=== PATIENT | male | born 1965 | race Caucasian/White ===

== ENCOUNTER 2021-10-29 01:29 | Day surgery (SDC) | payer OTHER, SELFPAY ==
[2021-10-15 12:14] VITALS: BMI 24.9
--- NOTE | 2021-10-28 14:29 | WPDANESEPPF ---
Anes - Initial Pre Proc Eval Procedure: Operation Date: 10/29/21 08:30 Proposed Procedures p Screening Colonoscopy - Jl Veras MD <Billy Celis, DO - Last Filed: 10/28/21 14:30> Date/Time: 10/28/21 14:29 <Billy Celis DO - Last Filed: 10/28/21 14:30> Surgeon: Jl Veras MD <Billy Celis DO - Last Filed: 10/28/21 14:30> Pre Op Diagnosis: neoplasm screening, hx of colon polyps <Billy Celis DO - Last Filed: 10/28/21 14:30> Patient Data Age: 56 Gender: M Height: 1.68 m Weight: 70 kg <Billy Celis DO - Last Filed: 10/28/21 14:30> Allergies Allergy/AdvReac Type Severity Reaction Status Date / Time grass pollen Allergy Swelling Verified 10/29/21 07:35 in throat ibuprofen Allergy swelling Verified 10/29/21 07:35 in throat wheat Allergy swelling Verified 10/29/21 07:35 in throat <Billy Celis DO - Last Filed: 10/28/21 14:30> Home Medications Medication Instructions Recorded Confirmed Type albuterol sulfate 90 mcg/actuation 2 inh inhalation Q4-6H PRN 08/16/21 10/29/21 History breath activated powder inhaler Shortness Of Breath Or Wheezing zdimvuwuds-ylalpcwbcvgkd-yyotzewj 1 cap PO Q8H PRN Headache 08/16/21 10/29/21 History 50 mg-300 mg-40 mg capsule (Fioricet) dronabinol 10 mg capsule 10 mg PO BID PRN nausea and 08/16/21 10/29/21 Rx vomiting #20 caps dupilumab 300 mg/2 mL subcutaneous 300 mg subcut .Biweekly 08/16/21 10/29/21 History pen injector (Dupixent) fluticasone fur. 100 mcg-umeclid 1 inh inhalation DAILY 08/16/21 10/29/21 History 62.5 mcg-vilant 25 mcg inhalat.powder (Trelegy Ellipta) montelukast 10 mg tablet 10 mg PO DAILY 08/16/21 10/29/21 History (Singulair) testosterone cypionate 200 mg/mL 120 mg IM WEEKLY 08/16/21 10/29/21 History intramuscular oil zolmitriptan 5 mg tablet See Rx Instructions PO .COMPLEX 08/16/21 10/15/21 Rx #14 tabs <Billy Celis, DO - Last Filed: 10/28/21 14:30> Patient hx anesthesia problems: none <Idania Posey CRNA - Last Filed: 10/29/21 07:56> Family hx anesthesia problems: none <Idania Posey CRNA - Last Filed: 10/29/21 07:56> Results Review: All pre-operative results and documents have been reviewed as part of the pre-operative evaluation. <Billy Celis, DO - Last Filed: 10/28/21 14:30> [facility] Past Medical History Medical History: Medical History Allergies Arthritis Asthma Broken finger Cholecystectomy planned 2018 Gynecomastia Headache Umbilical hernia 2016 surgery <Billy Celis, DO - Last Filed: 10/28/21 14:30> Surgical History Surgical History: Surgical History H/O sinus surgery X3 History of cholecystectomy S/P tendon repair 01/2020 Right arm PIN AND CABLE ATTACHMENT ON TENDON <Billy Celis DO - Last Filed: 10/28/21 14:30> Family History Family History: Family History Father Alcoholism Mother Cerebrovascular accident Carcinoma of colon Uterine cancer Lymph node cancer <Billy Celis DO - Last Filed: 10/28/21 14:30> Social History Social History: Social History Smoking status: Never smoker Tobacco type: cigarettes Smoking end date: 01/12/98 Alcohol intake: current Alcohol use details: occasionally Substance use: former Substance use type: does not use Other substance usage details: MMJ Living arrangements: alone Spiritual care concerns: No <Billy Celis DO - Last Filed: 10/28/21 14:30> Anes - Eval Final PreProcedure Day of Procedure 10/28/21 14:29 <Billy Celis DO - Last Filed: 10/28/21 14:30> Patient weight:
--- NOTE | 2021-10-28 15:11 | PM.HPGS ---
History of Present Illness History of Present Illness Consent: Risks, benefits, and alternatives have been discussed and questions answered. Patient agrees to proceed with procedure. Chief complaint: neoplasm screening, hx of colon polyps Narrative: Devyn Sharif is a 56 year old male Referred for colon cancer screening. He has a history of polyps. Review of Systems Review of Systems: All systems reviewed & are unremarkable except as noted in HPI and below PMFSH Past Medical History Medical History Allergies Arthritis Asthma Broken finger Cholecystectomy planned 2017 Gynecomastia Headache Umbilical hernia 2016 surgery Surgical History Surgical History H/O sinus surgery X3 History of cholecystectomy S/P tendon repair 01/2020 Right arm PIN AND CABLE ATTACHMENT ON TENDON Family History Family History Father Alcoholism Mother Cerebrovascular accident Carcinoma of colon Uterine cancer Lymph node cancer Social History Social History Smoking status: Never smoker Tobacco type: cigarettes Smoking end date: 01/12/98 Alcohol intake: current Alcohol use details: occasionally Substance use: former Substance use type: does not use Other substance usage details: MMJ Living arrangements: alone Spiritual care concerns: No Meds Home Medications and Allergies Home Medications Medication Instructions Recorded Confirmed Type albuterol sulfate 90 mcg/actuation 2 inh inhalation Q4-6H PRN 08/16/21 10/29/21 History breath activated powder inhaler Shortness Of Breath Or Wheezing chqmwpgqyj-teutxyybwhqco-rwwjgxnv 1 cap PO Q8H PRN Headache 08/16/21 10/29/21 History 50 mg-300 mg-40 mg capsule (Fioricet) dronabinol 10 mg capsule 10 mg PO BID PRN nausea and 08/16/21 10/29/21 Rx vomiting #20 caps dupilumab 300 mg/2 mL subcutaneous 300 mg subcut .Biweekly 08/16/21 10/29/21 History pen injector (Dupixent) fluticasone fur. 100 mcg-umeclid 1 inh inhalation DAILY 08/16/21 10/29/21 History 62.5 mcg-vilant 25 mcg inhalat.powder (Trelegy Ellipta) montelukast 10 mg tablet 10 mg PO DAILY 08/16/21 10/29/21 History (Singulair) testosterone cypionate 200 mg/mL 120 mg IM WEEKLY 08/16/21 10/29/21 History intramuscular oil zolmitriptan 5 mg tablet See Rx Instructions PO .COMPLEX 08/16/21 10/15/21 Rx #14 tabs Allergies Allergy/AdvReac Type Severity Reaction Status Date / Time grass pollen Allergy Swelling Verified 10/29/21 07:35 in throat ibuprofen Allergy swelling Verified 10/29/21 07:35 in throat wheat Allergy swelling Verified 10/29/21 07:35 in throat Exam Resp: Auscultation: clear to auscultation bilaterally Cardio: Rate: regular rate Rhythm: regular rhythm GI: GI Palp: Yes Soft to palpation and No Tenderness to palpation present (GI) Assessment and Plan Assessment and plan (1) Colon cancer screening: Code(s): Z12.11 - Encounter for screening for malignant neoplasm of colon Status: Acute Assessment and Plan: Colonoscopy with possible biopsy or polypectomy or cautery or injection of substances.
[2021-10-29 07:36] VITALS: BP 117/74; PULSE 66; RESP 16; TEMP 36.6; O2SAT 100; BMI 24.5
[2021-10-29] MEDS: LACTATED RINGERS 1,000 ML 150 ML IV CONT (07:46)
[2021-10-29 08:41] VITALS: BP 94/57; PULSE 71; RESP 18; O2SAT 98
[2021-10-29 08:51] VITALS: BP 114/67; PULSE 69; RESP 23; O2SAT 99
[2021-10-29 09:01] VITALS: BP 99/69; PULSE 67; RESP 18; O2SAT 100
== END 2021-10-29 09:11 | disposition home or self-care (01) ==
PROVIDERS: PCP Internal Medicine; Visit Provider Internal Medicine Gastroenterology
PROC: 0DJD8ZZ Inspection of Lower Intestinal Tract, Via Natural or Artificial Opening Endoscopic (ICD-10-PCS; CPT 45378; principal; 2021-10-29 08:30)
DX: Z12.11 Encounter for screening for malignant neoplasm of colon (principal); R85.612 Low grade squamous intraepithelial lesion on cytologic smear of anus (LGSIL); K57.30 Diverticulosis of large intestine without perforation or abscess without bleeding; K64.8 Other hemorrhoids; Z86.010 Personal history of colon polyps; Z87.891 Personal history of nicotine dependence
CPT/HCPCS: 45380; 88305; 88342; J2704; J7120

== ENCOUNTER 2023-05-18 08:35 | Outpatient (CLI) | payer OTHER, SELFPAY ==
--- NOTE | ~2023-05-18 | XR_ITS ---
XR shoulder LT min 2V DATE: 05/18/2023 08:58 INDICATION: Left shoulder pain for 4 months. No injury. TECHNIQUE: 4 views COMPARISON: None FINDINGS: No fracture or dislocation, periosteal reaction or bone destruction or abnormal soft tissue calcification. IMPRESSION: No significant abnormality Reviewed, dictated and finalized at location L. PRESSURE OPERATOR IMPRESSION: No significant abnormality
== END 2023-05-18 08:36 ==
PROVIDERS: PCP Nurse Practitioner; Visit Provider Nurse Practitioner
DX: M25.512 Pain in left shoulder (principal)
CPT/HCPCS: 73030

== ENCOUNTER 2023-06-12 15:44 | Outpatient (CLI) | payer OTHER, SELFPAY ==
[2023-06-12 20:35] LABS: HIV 1/2 Ab P24 Ag Result Negative (Negative)
[2023-06-12 20:44] LABS: Folic Acid 12.2 ng/mL (2.76->20)
== END 2023-06-12 15:45 | disposition home or self-care (01) ==
PROVIDERS: PCP Nurse Practitioner; Visit Provider Nurse Practitioner
DX: K13.79 Other lesions of oral mucosa (principal); Z11.3 Encounter for screening for infections with a predominantly sexual mode of transmission
CPT/HCPCS: 36415; 82607; 82746; 86703; G0432

== ENCOUNTER 2023-06-24 08:10 | Outpatient (CLI) | payer OTHER, SELFPAY ==
--- NOTE | ~2023-06-24 | MR_ITS ---
EXAMINATION: MR shoulder LT wo con DATE: 06/24/2023 08:57 INDICATION: Posterior left shoulder pain. TECHNIQUE: Magnetic resonance imaging (MRI) of the left shoulder was performed without intravenous co ntrast. Sequences included axial PD-weighted FS FSE, coronal oblique PD-weighted FS FSE and T2-weight ed FS FSE, and sagittal oblique T2-weighted FS FSE and T1-weighted FSE. COMPARISON: Left shoulder radiographs 05/18/2023 FINDINGS: Coracoacromial arch: The acromion undersurface is curved in morphology (type II). There is mild acromioclavicular joint os teoarthritis. There is moderate subacromial/subdeltoid bursitis. Rotator cuff: There is severe supraspinatus tendinopathy. There is shallow bursal-sided fraying of supraspinatus te ndon. There is an interstitial tear of posterior supraspinatus tendon measuring 2 mm anterior to post erior by 20 mm proximal to distal by 20% tendon thickness. Teres minor tendon is normal. There is mil d subscapularis tendinopathy. There is no asymmetric fatty atrophy of the rotator cuff muscle bellies . Biceps tendon and glenoid labrum: Biceps tendon is in bicipital groove. There is mild intra-articular biceps tendinopathy. There is a t ear of posterior superior labrum from 11:00 to 12:00 (SLAP tear). Fluid: There is no glenohumeral joint effusion. Bones/cartilage: There is cartilage surface irregularity of glenoid and humeral head. IMPRESSION: 1. Severe rotator cuff tendinopathy with small partial tears. 2. Mild glenohumeral joint chondrosis. SLAP tear. 3. Mild acromioclavicular joint osteoarthritis. 4. Moderate subacromial/subdeltoid bursitis. 5. Mild intra-articular biceps tendinopathy. Reviewed, dictated and finalized at location E. 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
== END 2023-06-24 08:11 ==
LOC: MICIMG 08:10
PROVIDERS: PCP Nurse Practitioner Family; Visit Provider Nurse Practitioner Family
DX: M75.32 Calcific tendinitis of left shoulder (principal); M94.212 Chondromalacia, left shoulder; M19.012 Primary osteoarthritis, left shoulder; M75.52 Bursitis of left shoulder; M75.22 Bicipital tendinitis, left shoulder; S43.432A Superior glenoid labrum lesion of left shoulder, initial encounter; X58.XXXA Exposure to other specified factors, initial encounter
CPT/HCPCS: 73221

== ENCOUNTER 2023-12-13 09:54 | Emergency (ER) | payer OTHER, SELFPAY ==
[2023-12-13 10:05] VITALS: BP 142/82; PULSE 84; RESP 16; TEMP 37.2; O2SAT 98
--- NOTE | 2023-12-13 10:15 | ED.GENADULT ---
HPI - General Adult General Chief complaint: Headache Stated complaint: headache/nausea/diarrhea Time Seen by Provider: 12/13/23 10:15 Source: patient, RN notes reviewed and old records reviewed Mode of arrival: ambulatory Limitations: no limitations History of Present Illness HPI narrative: 58-year-old male to [facility] for complaints weight loss approximately 25 lb over the past 6 weeks without intention, decreased appetite, headache, nausea, mucous diarrhea for 1 week. Patient denies fever, vomiting, visual changes, ear pain, sore throat, difficulty swallowing, shortness of breath, chest pain. Patient reports history tobacco use; quit in 1997. Patient states that he recently moved his mother into an independent living facility and has had a lot of exposure to a variety of new people there over the past week. Patient concerned that he may have contracted a virus. patient able to tolerate fluids by mouth. Respirations even and nonlabored. Patient able to speak in complete sentences in exam room without difficulty. Patient in no acute distress. Related Data Home Medications Medication Instructions Recorded Confirmed montelukast 10 mg tablet 10 mg PO DAILY 08/16/21 12/13/23 (Singulair) dupilumab 300 mg/2 mL subcutaneous 300 mg subcut .[id number] 05/18/23 12/13/23 pen injector (Dupixent) testosterone cypionate 100 mg/mL 32 mg IM WEEKLY 05/18/23 12/13/23 intramuscular oil valacyclovir 1 gram tablet 2,000 mg PO Q12H PRN sores 07/18/23 12/13/23 (Valtrex) dronabinol 10 mg capsule mg 12/13/23 12/13/23 zolmitriptan 5 mg disintegrating 5 mg PO 12/13/23 tablet Allergies Allergy/AdvReac Type Severity Reaction Status Date / Time grass pollen Allergy Swelling Verified 12/13/23 10:00 in throat ibuprofen Allergy swelling Verified 12/13/23 10:00 in throat wheat Allergy swelling Verified 12/13/23 10:00 in throat Review of Systems Review of Systems: All systems reviewed & are unremarkable except as noted in HPI and below Constitutional: Constitutional: Reports as per HPI, Reports difficulty sleeping, Reports excessive sweating, Reports headache(s), Reports night sweats, Reports poor appetite and Reports weight loss Eyes: Eyes: Reports no additional eye complaints ENT: Reports system reviewed and no additional complaints, except as documented Cardiovascular: Cardiovascular: Reports no additional cardiovascular complaints, Denies chest pain and Denies dyspnea Respiratory: Respiratory: Reports no additional respiratory complaints, Denies cough and Denies dyspnea Gastrointestinal: Gastrointestinal: Reports as per HPI, Reports diarrhea and Reports nausea Musculoskeletal: Musculoskeletal: Reports no additional musculoskeletal complaints Neurologic: Reports system reviewed and no additional complaints, except as documented Psychiatric: Psychiatric: Reports no additional psychiatric complaints PMFSH Past Medical History Medical History Allergies Arthritis Asthma Broken finger Cholecystectomy planned 2018 Colon cancer screening Encounter for monitoring testosterone replacement therapy Gynecomastia Headache Hypertriglyceridemia Left shoulder pain Onychomycosis Rotator cuff tendonitis Sinusitis Umbilical hernia 2016 surgery Surgical History Surgical History H/O sinus surgery X3 History of cholecystectomy S/P tendon repair 01/2020 Right arm PIN AND CABLE ATTACHMENT ON TENDON Family History Family History Father Alcoholism Mother Cerebrovascular accident Carcinoma of colon Uterine cancer Lymph node cancer Social History Social History Social History: Caffeine-occasionally Smoking status: Former smoker Tobacco type: cigarettes
[2023-12-13 10:30] VITALS: BP 142/82; PULSE 84; RESP 16; TEMP 37.2; O2SAT 98
[2023-12-13 11:37] LABS: EDINFLUASCREEN Negative; EDINFLUBSCREEN Negative
== END 2023-12-13 11:10 | disposition short-term general hospital (02) ==
PROVIDERS: Emergency Provider Nurse Practitioner Family; PCP Internal Medicine
DX: R51.9 Headache, unspecified (principal); R63.4 Abnormal weight loss; Z68.22 Body mass index [BMI] 22.0-22.9, adult; R63.8 Other symptoms and signs concerning food and fluid intake; Z20.822 Contact with and (suspected) exposure to COVID-19; Z87.891 Personal history of nicotine dependence; M19.90 Unspecified osteoarthritis, unspecified site; J45.909 Unspecified asthma, uncomplicated; E78.1 Pure hyperglyceridemia
CPT/HCPCS: 87426; 87804; 99213; G0463

== ENCOUNTER 2023-12-14 10:29 | Outpatient (CLI) | payer OTHER, SELFPAY ==
[2023-12-14 12:24] LABS: Basophils Percent Auto 0.4 % (0.2-1.2); Eosinophils Absolute Auto 0.3 K/mm3 (0-0.3); Eosinophils Percent Auto 3.9 % (0-4.4); Hematocrit 52.9 % (42.0-52.0); Hemoglobin 18.5 g/dL (14.0-18.0); Immature Granulocyte Absolute 0.02 K/mm3 (0.00-0.031); Immature Granulocyte Percent A 0.3 % (0-0.5); Lymphocytes Absolute Auto 1.66 K/mm3 (0.9-3.2); Lymphocytes Percent Auto 24.9 % (18.3-44.2); Mean Corpuscular Hemoglobin 32.1 pg (26-34); Mean Corpuscular Volume 91.7 fl (80-100); Mean Platelet Volume 9.6 fl (7.4-10.4); Monocytes Absolute Auto 0.5 K/mm3 (0.1-0.6); Monocytes Percent Auto 6.9 % (2.6-8.5); Neutrophils Absolute Auto 4.2 K/mm3 (1.3-6.7); Neutrophils Percent Auto 63.6 % (45.5-73.1); Platelet Count Result 292 k/mm3 (150-375); Red Blood Count 5.77 M/mm3 (4.6-6.20); Red Cell Distribution Width 12.7 % (11.5-14.5); White Blood Count 6.7 K/mm3 (4.5-10.0)
[2023-12-14 12:47] LABS: Alanine Aminotransferase 72 U/L (6-50); Albumin Level 4.7 g/dL (3.5-5.1); Alkaline Phosphatase 52 U/L (38-126); Anion Gap 11 mmol/L (4-12); Aspartate Amino Transferase 124 U/L (17-59); Bilirubin,Total 0.8 mg/dL (0.2-1.3); Blood Urea Nitrogen 24 mg/dL (9-20); Calcium 9.5 mg/dL (8.4-10.2); Carbon Dioxide 28 mmol/L (22-30); Chloride 100 mmol/L (98-107); Estimated Glomerular Filt Rate > 60; Glucose 69 mg/dL (65-110); Sodium 139 mmol/L (137-145)
[2023-12-14 13:14] LABS: Thyroid Stimulating Hormone 0.765 uIU/mL (0.465-4.680)
[2023-12-14 13:15] LABS: Erythrocyte Sedimentation Rate 1 mm/hr (0-20)
== END 2023-12-14 10:30 | disposition home or self-care (01) ==
LOC: ANHGOSHLAB 10:31
PROVIDERS: PCP Internal Medicine; Visit Provider Nurse Practitioner
DX: R51.9 Headache, unspecified (principal)
CPT/HCPCS: 36415; 80053; 84443; 85025; 85652

== ENCOUNTER 2023-12-20 14:38 | Outpatient (CLI) | payer OTHER, SELFPAY | END 2023-12-20 14:39 | disposition home or self-care (01) | LOC: ANHBWCAUD 14:38 | PROVIDERS: PCP Internal Medicine; Visit Provider Nurse Practitioner | DX: H93.13 Tinnitus, bilateral (principal); H90.3 Sensorineural hearing loss, bilateral | CPT/HCPCS: 92557; 92567 ==

== ENCOUNTER 2023-12-21 14:49 | Outpatient (CLI) | payer OTHER, SELFPAY ==
[2023-12-21 18:57] LABS: Alanine Aminotransferase 59 U/L (6-50); Albumin Level 4.2 g/dL (3.5-5.1); Alkaline Phosphatase 52 U/L (38-126); Aspartate Amino Transferase 115 U/L (17-59); Bilirubin,Total 0.5 mg/dL (0.2-1.3)
== END 2023-12-21 14:50 | disposition home or self-care (01) ==
LOC: ANHGOSHLAB 14:50
PROVIDERS: PCP Internal Medicine; Visit Provider Nurse Practitioner
DX: R74.8 Abnormal levels of other serum enzymes (principal)
CPT/HCPCS: 36415; 80076

== ENCOUNTER 2024-01-11 14:42 | Outpatient (CLI) | payer OTHER, SELFPAY ==
[2024-01-11 19:46] LABS: Prothrombin Time 13.3 Seconds (11.1-14.7)
[2024-01-11 19:57] LABS: Alanine Aminotransferase 78 U/L (6-50); Albumin Level 4.4 g/dL (3.5-5.1); Alkaline Phosphatase 55 U/L (38-126); Anion Gap 8 mmol/L (4-12); Aspartate Amino Transferase 72 U/L (17-59); Bilirubin,Total 0.6 mg/dL (0.2-1.3); Blood Urea Nitrogen 28 mg/dL (9-20); Calcium 9.5 mg/dL (8.4-10.2); Carbon Dioxide 28 mmol/L (22-30); Chloride 102 mmol/L (98-107); Estimated Glomerular Filt Rate > 60; Glucose 76 mg/dL (65-110); Potassium 3.9 mmol/L (3.4-5.0); Sodium 138 mmol/L (137-145)
[2024-01-11 20:02] LABS: Iron 139 ug/dL (49-181)
[2024-01-11 20:12] LABS: Percent Iron Saturation 46 % (20-50)
[2024-01-11 20:38] LABS: Hepatitis B Surface Antigen Negative (Negative)
[2024-01-11 20:56] LABS: Hepatitis C Virus Antibody Negative (Negative)
[2024-01-13 20:37] LABS: Amphetamines NEGATIVE ng/mL (<500); Barbiturates NEGATIVE ng/mL (<300); Benzodiazepines NEGATIVE ng/mL (<100); Cocaine Metabolite NEGATIVE ng/mL (<150); Marijuana Metabolite POSITIVE ng/mL (<20); Methadone Metabolite NEGATIVE ng/mL (<100); Opiates NEGATIVE ng/mL (<100); Oxidant NEGATIVE mcg/mL (<200); PCP NEGATIVE ng/mL (<25); pH 7.7 (4.5-9.0)
== END 2024-01-11 14:43 | disposition home or self-care (01) ==
LOC: ANHGOSHLAB 14:44
PROVIDERS: PCP Internal Medicine; Visit Provider Internal Medicine
DX: R74.8 Abnormal levels of other serum enzymes (principal); Z79.899 Other long term (current) drug therapy
CPT/HCPCS: 36415; 80053; 80307; 82728; 83540; 83550; 85610; 86803; 87340

== ENCOUNTER 2024-06-28 11:31 | Outpatient (CLI) | payer OTHER, SELFPAY ==
--- NOTE | ~2024-06-28 | MR_ITS ---
EXAMINATION: MR shoulder LT wo con DATE: 06/28/2024 12:03 INDICATION: Unspecified injury of left shoulder. TECHNIQUE: Magnetic resonance imaging (MRI) of the left shoulder was performed without intravenous co ntrast. Sequences included axial PD-weighted FS FSE, coronal oblique PD-weighted FS FSE and T2-weight ed FS FSE, and sagittal oblique T2-weighted FS FSE and T1-weighted FSE. COMPARISON: Left shoulder radiographs 05/18/2023, MRI 06/24/2023 FINDINGS: Coracoacromial arch: The acromion undersurface is curved in morphology (type II). There is mild acromioclavicular joint os teoarthritis. There is moderate subacromial/subdeltoid bursitis. Rotator cuff: There is severe supraspinatus tendinopathy. There is a uvnd-xurz-mphlxinxw bursal-sided tear of supra spinatus tendon measuring 11 mm anterior to posterior by 3 mm proximal to distal. There is mild infra spinatus tendinopathy. Teres minor tendon is normal. There is mild subscapularis tendinopathy. There is no asymmetric fatty atrophy of rotator cuff muscle bellies. Biceps tendon and glenoid labrum: Biceps tendon is in bicipital groove. Intra-articular biceps tendon is normal. There is degeneration of superior glenoid labrum without well-defined tear. Fluid: There is no glenohumeral joint effusion. Bones/cartilage: There is cartilage surface irregularity of glenoid and humeral head. IMPRESSION: 1. Severe rotator cuff tendinopathy with mivs-zofh-madjmvael bursal-sided tear of supraspinatus tendo n. 2. Mild glenohumeral joint chondrosis. 3. Mild acromioclavicular joint osteoarthritis. 4. Moderate subacromial/subdeltoid bursitis. Reviewed, dictated and finalized at location L. IMPRESSION: 1. Severe rotator cuff tendinopathy with dpav-wbjz-jfdzjgfey bursal-sided tear of supraspinatus tendon. 2. Mild glenohumeral joint chondrosis. 3. Mild acromioclavicular joint osteoarthritis. 4. Moderate subacromial/subdeltoid bursitis.
== END 2024-06-28 11:32 | disposition home or self-care (01) ==
LOC: MICIMG 11:33
PROVIDERS: PCP Internal Medicine; Visit Provider Nurse Practitioner Family
DX: M75.112 Incomplete rotator cuff tear or rupture of left shoulder, not specified as traumatic (principal); S49.92XA Unspecified injury of left shoulder and upper arm, initial encounter; S46.812A Strain of other muscles, fascia and tendons at shoulder and upper arm level, left arm, initial encounter; X58.XXXA Exposure to other specified factors, initial encounter; M94.212 Chondromalacia, left shoulder; M75.52 Bursitis of left shoulder
CPT/HCPCS: 73221

== ENCOUNTER 2024-07-16 10:58 | Outpatient (CLI) | payer OTHER, SELFPAY ==
--- OUTSIDE RECORDS SUMMARY | 2024-07-16 12:18 | XMS_ITS | Clinical Summary ---
Author Organization [facility] Address [address] [place] [address] Phone Care Team Providers Care Insights Strategist Name Role Phone Lenorubi Brooks Joseph DO Primary Care Provider Allergies Active Allergy Reactions Criticality Noted Date Comments Ibuprofen Anaphylaxis,Swelling ,Other (see Comments) High 11/14/2018 Medications butalbital-aceta minophen-caffein e (FIORICET, ESGIC) 50-325-40 MG Tablet TAKE 1 TABLET BY MOUTH EVERY 6 HOURS NEEDED FOR HEADACHE 60 Tab 0 6 Active Additional Information Patient not taking.Reported on 11/25/2021 ZOLMitriptan (ZOMIG) 5 MG TabletIndication s:Nonintractable episodic headache, unspecified headache type Take 1 Tab by mouth as needed for Migraine. 6 Tab 5 6 Active traMADol (ULTRAM) 50 MG TabletIndication s:Nonintractable episodic headache, unspecified headache type Take 1 Tab by mouth every 8 hours as needed for Pain. 50 Tab 0 6 Active Additional Information Patient not taking.Reported on 08/02/2022 diazepam (VALIUM) 5 MG TabletIndication s:Anxiety Take 1 Tab by mouth every 12 hours as needed for Anxiety. 30 Tab 0 6 Active Additional Information Patient not taking.Reported on 08/02/2022 polyethylene glycol (MIRALAX) Powder Mix the entire bottle with 64 oz of a clear liquid. Use as directed by the office for colonoscopy prep. 255 g 0 6 Active Additional Information Patient not taking.Reported on 08/02/2022 clonazePAM (KLONOPIN) 1 MG Tablet Take 1 Tab by mouth as needed. 7 Active silver sulfADIAZINE (SILVADENE) 1 % Cream Apply 2 times daily. Application Site: right face (Description and Location) 400 g 8 Active Additional Information Patient not taking.Reported on 08/02/2022 albuterol 108 (90 Base) MCG/ACT Aerosol Solution take 2 Puffs by inhalation. 0 Active montelukast (SINGULAIR) 10 MG Tablet Take 10 mg by mouth every evening. Active Trelegy Ellipta 100-62.5-25 MCG/INH AEROSOL POWDER, BREATH ACTIVATED INHALE 1 PUFF BY MOUTH EVERY DAY 2 Active Dronabinol 10 MG Capsule TAKE 1 CAPSULE BY MOUTH TWICE DAILY NEEDED FOR NAUSEA OR VOMITING 2 Active tetracycline (ACHROMYCIN, SUMYCIN) 250 MG Capsule Take 250 mg by mouth 2 times daily. 3 Active valACYclovir (VALTREX) 1 GM Tablet Take 2 tablets twice daily for 2 days 4 Tablet 3 Active Active Problems Problem Noted Date Diagnosed Date Severe asthma with exacerbation 09/11/2019 Anxiety 09/16/2015 Nonintractable episodic headache 09/16/2015 Immunizations Immunization Administration Dates Next Due PUR TDAP 7+ YRS IM 09/16/2015 Family History Medical History Relation Name Comments Other-comment Brother head trauma at age 15. suddenly 30 years later (aneurysm?) Dementia Father Ovarian Cancer Mother Relation Name Status Comments Brother Father Alive Mother Alive Social History Tobacco Use Types Packs/Day Years Used Date Smoking Tobacco: Former Cigarettes 1 10 0 12/24/1987 - 12/23/1997 Smokeless Tobacco: Never Tobacco Cessation:Counseling Given: Not Answered Alcohol Use Standard Drinks/Week Comments Not Currently 1 (1 standard drink = 0.6 oz pur e alcohol) socially Sexually Active Control Partners Comments Not Currently Sex and Gender Information Value Date Recorded Sex Assigned at Not on file Legal Sex Male 7:31 PM CDT Gender Identity Not on file Sexual Orientation Not on file Last Filed Vital Signs Vital Sign Reading Time Taken Comments Blood Pressure 140/88 03/28/2023 5:26 PM BUILDING RENTAL MANAGER Pulse 79 03/28/2023 5:26 PM BUILDING RENTAL MANAGER Temperature 36.5 C (97.7 F) 03/28/2023 5:26 PM BUILDING RENTAL MANAGER Respiratory Rate 18 03/28/2023 5:26 PM BUILDING RENTAL MANAGER Oxygen Saturation 99% 03/28/2023 5:26 PM BUILDING RENTAL MANAGER Inhaled Oxygen Concentration - - Weight 65.8 kg (145 lb) 03/28/2023 5:26 PM BUILDING RENTAL MANAGER Height 167.6 cm (5' 6 ) 08/12/2017 5:25 PM CDT Body Mass Index 23.4 08/12/2017 5:25 PM CDT Plan of Treatment Health Maintenance Due Date Last Done Comments Hepatitis C Virus (HCV) Screening 1965 Hepatitis B Immunization (1 of 3 - 19+ 3-dose series) 07/21/1983 Pneumococcal Immunization (5 0+ years) (2 of 2 - PCV) 05/01/1999 05/01/1998 Cologuard 2014 Immunochemical Fecal Occult Blood 2014 Zoster Immunization (1 of 2) 2014 PSA Discussion 07/21/2019 Influenza Immunization (#1) 2023 04/22/2019 SARS-COV-2 Immunization ( season) 2023 03/25/2021, 10/02/2020, 09/04/2020 Td Immunization Every 10 Yea rs (Adults With 1 Tdap) 09/15/2025 09/16/2015, 03/18/2009 Colonoscopy 12/22/2025 12/23/2015 Colorectal Cancer Screening 12/22/2025 Respiratory Syncytial Virus (RSV) Immunization (Adult) (1 - 1-dose 75+ series) 07/21/2039 12/23/2015 Pneumococcal Immunization Combined Discontinued 05/01/1998 Meningococcal Immunization (ACWY) Aged Out No longer eligible based on patient's age to complete this topic Rotavirus Immunization Aged Out No lo nger eligible based on patient's age to complete this topic Insurance [facility] [facility] [employer] Care Teams Insights Strategist Relationship Specialty Start Date End Date Brooks Montero DO [address] [place] [address] [place] [address] PCP - General Internal Medicine 11/25/21
--- OUTSIDE RECORDS SUMMARY | 2024-07-16 12:18 | XMS_ITS | Clinical Summary ---
Author Organization [facility] Address [address] [place] [address] Care Team Providers Care Poultry Hatchery Laborer Name Role Phone Brooks Montero DO Primary Care Provider [phone] Source Comments [facility],non-owned Affiliates and Associated Physician Practices is amultiple site organization consisting of ambulatory clinics and hospital sitesin [place], [place], [place] and [place]. This disclosure is being madepursuant to the Care Everywhere program and may not contain all information available regarding this patient. Last updated 18.[facility] Social History Tobacco Use Types Packs/Day Years Used Date Smoking Tobacco: Never Assessed Sex and Gender Information Value Date Recorded Sex Assigned at Not on file Gender Identity Not on file Sexual Orientation Not on file Plan of Treatment Health Maintenance Due Date Last Done Comments COLOGUARD (AGES 45-75) - COL ON CA SCREENING 1965 COLON MONITORING 1964 COLONOSCOPY - COLON CA SCREENING 1964 CT COLONOGRAPHY - COLON CA SCREENING 1964 Colorectal Cancer Screening 1964 FIT - COLON CA SCREENING 1964 FLEX SIG - COLON CA SCREENING 1964 LIPID TESTING 1964 HIV SCREENING 07/21/1979 HEPATITIS C SCREENING 07/16/1982 DTAP/TDAP/TD VACCINES (1 - Tdap) 07/21/1983 HEPATITIS B VACCINE (1 of 3 - 19+ 3-dose series) 07/21/1983 PNEUMOCOCCAL VACCINE 50+ (1 of 1 - PCV) 2014 ZOSTER VACCINE (1 of 2) 2014 COVID-19 VACCINE ( - 2023-2 5 season) 2023 INFLUENZA VACCINE (#1) 2023 DEPRESSION SCREENING 04/17/2024 HIB VACCINE Aged Out No longer eligi ble based on patient's age to complete this topic HPV VACCINE Aged Out No longer eligi ble based on patient's age to complete this topic MENINGOCOCCAL (Group B) VACC INE SHARED DECISION-MAKING Aged Out No longer eligibl e based on patient's age to complete this topic MENINGOCOCCAL GROUPS A/C/Y/W VACCINE Aged Out No longer eligible b ased on patient's age to complete this topic PNEUMOCOCCAL VACCINE Aged Out No long er eligible based on patient's age to complete this topic Care Teams Poultry Hatchery Laborer Relationship Specialty Start Date End Date Brooks Montero DO PCP - General 11/12/21
--- OUTSIDE RECORDS SUMMARY | 2024-07-16 12:18 | XMS_ITS | Clinical Summary ---
Author Organization [facility] Address [facility] [place] [address] Care Team Providers Care Emergency Technician Name Role Phone Bora Meléndez MD Primary Care Provider Allergies Active Allergy Reactions Criticality Noted Date Comments Aspirin Anaphylaxis,Shortnes s of Breath,Throat swelling High 05/30/2019 Aspirin-Acetaminoph en-Caffeine Anaphylaxis High 01/17/2020 NO ALLERGY TO ACETAMINOPHEN Gluten Meal Other (see comment) High 05/31/2019 Produces heavy mucus, headaches Ibuprofen Anaphylaxis,Swelling High 11/14/2018 Medications Zolmitriptan 5 MG TABLET DISPERSIBLEIndi cations:migrain e Take 1 tablet by mouth as needed. Indications: migraine 08/19/2019 Active Nebulizers (VIOS AEROSOL DELIVERY SYSTEM) Misc USE DIRECTED 05/13/2019 Active montelukast 10 MG tablet Take 10 mg by mouth nightly at bedtime. 08/11/2019 Active ipratropium-alb uterol 0.5-2.5 (3) MG/3ML Solution U 3 ML VIA NEB Q 6 H UTD 06/09/2019 Active WIXELA INHUB 100-50 MCG/DOSE inhaler INL 1 PUFF PO Q 12 H UTD 07/04/2019 Active diazePAM 5 MG tablet Take 5 mg by mouth 2 (two) times daily as needed. 08/19/2019 Active albuterol sulfate HFA 108 (90 Base) MCG/ACT inhaler 2 puffs 2 (two) times daily as needed. 07/01/2019 Active Acetaminophen (TYLENOL 8 HOUR OR) Take 2 tablets by mouth every 6 (six) hours as needed. Active traMADol 50 MG tabletIndicatio ns:Acute Pain < 7 Day Supply Take 1 tablet (50 mg total) by mouth every 6 (six) hours as needed for Pain. Indications: Acute Pain < 7 Day Supply 26 tablet 01/17/2020 Active oxyCODONE-aceta minophen 5-325 MG tabletIndicatio ns:Acute Pain < 7 Day Supply Take 1 tablet by mouth every 4 (four) hours as needed for Pain. Indications: Acute Pain < 7 Day Supply 24 tablet 01/17/2020 Active HYDROcodone-abdi taminophen (NORCO) 7.5-325 MG tabletIndicatio ns:Acute Pain < 7 Day Supply Take 1 tablet by mouth every 6 (six) hours as needed for Pain. Indications: Acute Pain < 7 Day Supply 16 tablet 01/23/2020 Active Active Problems Problem Noted Date Diagnosed Date Severe asthma with exacerbation ([facility]) 2019 Allergic rhinitis 07/11/2019 Overview (09/11/2019): Last Assessment & Plan: Continue with Flonase. Acute respiratory failure with hypoxia ([facility]) 05/30/2019 Elevated hemoglobin 05/30/2019 Lactic acidosis 05/30/2019 Umbilical hernia without obstruction and without gangrene 01/24/2017 Overview (09/11/2019): Last Assessment & Plan: The procedure of a umbilical hernia repair was explained to the patient along with the risks of surgery and risks of waiting for repair. The patient wishes to schedule repair around the holidays for time off from work reasons. Signs and symptoms of strangulation were explained to the patient and to seek emergency medical help is this occurs. Chronic daily headache 01/18/2016 Anxiety 09/16/2015 Gastroesophageal reflux disease 08/31/2013 Overview (09/11/2019): ESOPHAGEAL REFLUX Immunizations Name Administration Dates Next Due Pneumococcal (Pneumovax 23) 05/01/1998 Td (Tenivac) preservative free 03/18/2009 Tdap (Generic) 09/16/2015 Family History Medical History Relation Comments No Known Problems Brother Alcohol Abuse Father No Known Problems Maternal Grandfather No Known Problems Maternal Grandmother No Known Problems Mother No Known Problems Paternal Grandfather No Known Problems Paternal Grandmother No Known Problems Sister Relation Status Comments Brother Father (Age 80) Maternal Grandfather Maternal Grandmother Mother Alive Paternal Grandfather Paternal Grandmother Sister Social History Tobacco Use Types Packs/Day Years Used Date Smoking Tobacco: Never Smokeless Tobacco: Never Alcohol Use Standard Drinks/Week Comments Not Currently 0 (1 standard drink = 0.6 oz pur e alcohol) social PHQ-2 Answer Date Recorded PHQ-2 Score - If the patient scores above 3, please move on to questions 3-9 0 01/23/2020 Sex and Gender Information Value Date Recorded Sex Assigned at Not on file Legal Sex Male 4:44 PM 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 Gender Identity Not on file Sexual Orientation Not on file Last Filed Vital Signs Vital Sign Reading Time Taken Comments Blood Pressure 130/90 03/19/2020 2:03 PM DIGITAL 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 Pulse 83 03/19/2020 2:03 PM DIGITAL 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 Temperature 36.7 C (98.1 F) 03/19/2020 2:03 PM DIGITAL 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 Respiratory Rate 16 01/17/2020 1:10 PM CDT Oxygen Saturation 97% 02/06/2020 3:51 PM CDT Inhaled Oxygen Concentration - - Weight 60.6 kg (133 lb 9.6 oz) 03/19/2020 2:03 P M DIGITAL 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 Height 167.6 cm (5' 6 ) 03/19/2020 2:03 PM DIGITAL 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 Body Mass Index 21.56 03/19/2020 2:03 PM DIGITAL 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 Plan of Treatment Health Maintenance Due Date Last Done Comments Colorectal Cancer Screening Colonoscopy (10 Years) 1965 Annual Physical 07/21/1967 Hepatitis C 1982 Pneumococcal Vaccine: Pediatrics (0 to 5 Years) and At-Risk Patients (6 to 64 Years) (2 of 2 - PCV) 05/01/1999 05/01/1998 Zoster Vaccines (1 of 2) 2014 COVID-19 Vaccine (2023-2 5 season) 2023 DTaP, Tdap and Td Vaccines ( 2 - Td or Tdap) 09/15/2025 09/16/2015, 03/18/2009 Meningococcal B Vaccine Aged Out No l onger eligible based on patient's age to complete this topic Meningococcal Vaccine Aged Out No burke timothy eligible based on patient's age to complete this topic RSV Immunizations Under 20 Months Aged Out No longer eligible b ased on patient's age to complete this topic Medical Devices Implanted Type Area Evaluator Device Identifier Shelf Expiration Date Model / Serial / Lot Dx Swivel Lock Implanted:Qty: 1 on 01/17/2020 by Washington Gamboa MD at [facility] Right: [employer] 07/14/2021 [id number] / / [id number] Insurance [employer] Care Teams Emergency Technician Relationship Specialty Start Date End Date Bora Meléndez MD [address] [address] PCP - General INTERNAL MEDICINE 09/11/19
--- OUTSIDE RECORDS SUMMARY | 2024-07-16 12:18 | XMS_ITS ---
Author Organization [facility] Address [address] [place] [address] Care Team Providers Care Datastage Architect Name Role Phone Brooks Montero Primary Care Provider Tai tijerina Adalgisa Dickinson Unavailable [phone] REASON FOR VISIT SCIT - Traditional Schedule Allergy immunotherapy Medications Medication SIG (Take, Route, Frequency, Duration) Notes Start Date End Date Status Singulair 10 MG 1 tab(s) orally once a day for 90 days Not-Taking ZOLMitriptan 5 MG 1 tab(s) orally once a day uses prn Active SIT (TRADITIONAL) variable per schedule SC per schedule for to be determined Active Xyzal Allergy 24HR 5 MG 1 tablet PO Qday for 30 days 11/03/2020 Not-Taking Auvi-Q 0.3 MG/0.3ML as directed intramuscularly once for 30 days 11/12/2020 Active Montelukast Sodium 10 MG 1 tablet Orally Once a day for 90 days Active ZyrTEC Allergy 10 MG 1 tab(s) orally once a day for 90 days Active Fluticasone Propionate (Inhal) 100 MCG/INH 1 PUFF(S) INHALED 2 TIMES A DAY for 30 DAY(S) uses once a day *Please review and pick correct strength-formula tion from Medispan options. If intended option is not shown, discontinue and re-order from Quick Search* Active droNABinol 10 MG 1 cap(s) orally 2 times a day Active DUPIXENT PRE-FILLED PEN 300 MG/2 ML DIRECTED SUBCUTANEOUSLY EVERY 2 WEEKS *Please review for potential replacement for e-prescription and drug interaction check* Active ZyrTEC Allergy 10 MG 1 tab(s) orally once a day for 90 days Not-Taking ALBUTEROL (EQV-PROAIR HFA) 90 MCG/INH INHALE 2 PUFFS BY MOUTH EVERY 4 TO 6 HOURS NEEDED AND PER THE ASTHMA ACTION PLAN for 30 *Please review for potential replacement for e-prescription and drug interaction check* Not-Taking Albuterol Sulfate HFA 108 (90 Base) MCG/ACT 2 puffs as needed Inhalation every 4 hrs for 30 days Active ZYRTEC 10 mg 1 tab(s) orally once a day for 90 days Active NASAL WASHES N/A as directed intranasally as needed Active ALBUTEROL (EQV-PROAIR HFA) 90 MCG/INH 2 PUFF(S) INHALED Q4-6 HOURS, PRN AND PER THE ASTHMA ACTION PLAN for 30 DAYS *Please review for potential replacement for e-prescription and drug interaction check* Not-Taking Encounters Encounter Location Date Provider Diagnosis [facility] [address] [place] [address] 06/18/2024 Adalgisa Dickinson Allergic rhinitis du e to pollen J30.1 ; Allergic rhinitis due to animal (cat) (dog) hair and dander J30.81 ; Other allergic rhinitis J30.89 and Other chronic allergic conjunctivitis H10.45 Assessments Encounter Date Diagnosis (ICD Code) Assessment Notes Treatment Notes Treatment Clinical Notes Section Notes 06/18/2024 Allergic rhinitis due to pollen (ICD-10 - J30.1) 06/18/2024 Allergic rhinitis due to animal (cat) (dog) hair and dander (ICD-10 - J30.81) 06/18/2024 Other allergic rhinitis (ICD-10 - J30.89) 06/18/2024 Other chronic allergic conjunctivitis (ICD-10 - H10.45) Plan Of Treatment Medication Medication Name Sig Start Date Stop Date Notes SIT (TRADITIONAL) variable per schedule SC per schedule for to be determined Next Appt Details Follow Up: 1 Week, Reason: Provider Name:Adalgisa mills, 07/16/2024 04:00:00 PM, [address], [place], [address], Progress Notes * Devyn ISRAEL:1965 (58 yo M)Acc No.[id number]:06/18/2024 SCIT-Aeroallergen Patient: Devyn CONNOLLY Provider: Calvin Dickinson MD :1965 A ge:58 Y S ex:Male Date:06/18/2024 Address:[facility] [address] [facility] Pcp:Brooks Montero Subjective: * Chief Complaints: * S CIT - Traditional Schedule Allergy immunotherapy * HPI: * Introduction: The patient is here for scheduled immunotherapy. Please see the attached specialty form regarding the specifics of the administration of these vaccines. As per our protocol, they must undergo a screening health questionnaire (medication changes, reaction(s) to last immunotherapy dose(s), current health status, ACT (if appropriate), self-injectable epinephrine on patient(?) and peak flow (if appropriate)). Also, the patient must wait in our office for 30 minutes after receiving the vaccine(s). Furthermore, every patient must have an epinephrine pen (self-injectable) with them at the time of administration--and carry if for the following 1.5 hours after they leave our office. The patient must also have taken their antihistamine the day of the injection, preferably 2 hours prior. The consent form for SCIT (subcutaneous immunotherapy) is on file. * Medical History: * Surgical History: * Hospitalization/Major Diagno stic Procedure: * Medications: T akingZYRTEC 10 mg tablet 1 tab(s) orally once a day NASAL WASHES N/A 1 quart of sterilized tap water or distilled water, 1 tsp NaCl, 1 pinch of baking soda as directed intranasally as needed Albuterol Sulfate HFA 108 (90 Base) MCG/ACT Aerosol Solution 2 puffs as needed Inhalation every 4 hrs Montelukast Sodium 10 MG Tablet 1 tablet Orally Once a day ZyrTEC Allergy 10 MG Tablet 1 tab(s) orally once a day droNABinol 10 MG Capsule 1 cap(s) orally 2 times a day DUPIXENT PRE-FILLED PEN 300 MG/2 ML SOLUTION DIRECTED SUBCUTANEOUSLY EVERY 2 WEEKS , Notes to Pharmacist: *Please review for potential replacement for e-prescription and drug interaction check*Fluticasone Propionate (Inhal) 100 MCG/INH POWDER 1 PUFF(S) INHALED 2 TIMES A DAY , Notes to Pharmacist: uses once a day *Please review and pick correct strength-formulation from Tetherball options. If intended option is not shown, discontinue and re-order from Quick Search*ZOLMitriptan 5 MG Tablet 1 tab(s) orally once a day , Notes to Pharmacist: uses prnAuvi-Q 0.3 MG/0.3ML Solution Auto- injector as directed intramuscularly once SIT (TRADITIONAL) variable see record per schedule SC per schedule Taking ZYRTEC 10 mg tablet 1 tab(s) orally once a day Taking NASAL WASHES N/A 1 quart of sterilized tap water or distilled water, 1 tsp NaCl, 1 pinch of baking soda as directed intranasally as needed Taking Albuterol Sulfate HFA 108 (90 Base) MCG/ACT Aerosol Solution 2 puffs as needed Inhalation every 4 hrs Taking Montelukast Sodium 10 MG Tablet 1 tablet Orally Once a day Taking ZyrTEC Allergy 10 MG Tablet 1 tab(s) orally once a day Taking droNABinol 10 MG Capsule 1 cap(s) orally 2 times a day Taking DUPIXENT PRE-FILLED PEN 300 MG/2 ML SOLUTION DIRECTED SUBCUTANEOUSLY EVERY 2 WEEKS , Notes to Pharmacist: *Please review for potential replacement for e-prescription and drug interaction check*Taking Fluticasone Propionate (Inhal) 100 MCG/INH POWDER 1 PUFF(S) INHALED 2 TIMES A DAY , Notes to Pharmacist: uses once a day *Please review and pick correct strength-formulation from Tetherball options. If intended option is not shown, discontinue and re-order from Quick Search*Taking ZOLMitriptan 5 MG Tablet 1 tab(s) orally once a day , Notes to Pharmacist: uses prnTaking Auvi-Q 0.3 MG/0.3ML Solution Auto-injector as directed intramuscularly once Taking SIT (TRADITIONAL) variable see record per schedule SC per schedule Not-Taking/PRNXyzal Allergy 24HR 5 MG Tablet 1 tablet PO Qday Singulair 10 MG Tablet 1 tab(s) orally once a day ALBUTEROL (EQV-PROAIR HFA) 90 MCG/INH AEROSOL 2 PUFF(S) INHALED Q4-6 HOURS, PRN AND PER THE ASTHMA ACTION PLAN , Notes to Pharmacist: *Please review for potential replacement for e-prescription and drug interaction check*ZyrTEC Allergy 10 MG Tablet 1 tab(s) orally once a day ALBUTEROL (EQV- PROAIR HFA) 90 MCG/INH AEROSOL INHALE 2 PUFFS BY MOUTH EVERY 4 TO 6 HOURS NEEDED AND PER THE ASTHMA ACTION PLAN , Notes to Pharmacist: *Please review for potential replacement for e-prescription and drug interaction check*Not-Taking/PRN Xyzal Allergy 24HR 5 MG Tablet 1 tablet PO Qday Not-Taking/PRN Singulair 10 MG Tablet 1 tab(s) orally once a day Not-Taking/PRN ALBUTEROL (EQV-PROAIR HFA) 90 MCG/INH AEROSOL 2 PUFF(S) INHALED Q4-6 HOURS, PRN AND PER THE ASTHMA ACTION PLAN , Notes to Pharmacist: *Please review for potential replacement for e-prescription and drug interaction check*Not-Taking/PRN ZyrTEC Allergy 10 MG Tablet 1 tab(s) orally once a day Not-Taking/PRN ALBUTEROL (EQV-PROAIR HFA) 90 MCG/INH AEROSOL INHALE 2 PUFFS BY MOUTH EVERY 4 TO 6 HOURS NEEDED AND PER THE ASTHMA ACTION PLAN , Notes to Pharmacist: *Please review for potential replacement for e-prescription and drug interaction check* Objective: * Vitals: Assessment: * Assessment: 1. A llergic rhinitis due to pollen - J30.1 (Primary) 2 . A llergic rhinitis due to animal (cat) (dog) hair and dander - J30.81 3 . O ther allergic rhinitis - J30.89 4 . O ther chronic allergic conjunctivitis - H10.45 Plan: * Treatment: * Procedure Codes: 9 5117 IMMUNOTHERAPY INJECTIONS * Preventive Medicine: Counseling: E xercise A void heavy lifting on days of allergy immunotherapy. M edication instruction: I njectable epinephrine education and instruction w/ discussion of signs and symptoms of anaphylaxis and reasons to seek urgent or emergent care, Watch for side effects of prescribed medications. E ducation: A ble to return demonstration of self-injectable epinephrine. * Follow Up: 1 Week * Billing Information: * Visit Code: * Procedure Codes: 76287 IMMUNOTHERAPY INJECTIONS. * ICATIONS SYSTEM ANALYST Sign off status: Completed true * Provider: Calvin Dickinson MD Date: 0 06/18/2024 Generated for Tristen bass/Lucretia/Eric on: 0 07/16/2024 10:59 AM CDT History and Physical Notes * HPI (History of Present Illness) Category Sub-Category Detail Notes Category Not es *Introduction The patient is here for scheduled immunotherapy. Please see the attached specialty form regarding the specifics of the administration of these vaccines. As per our protocol, they must undergo a screening health questionnaire (medication changes, reaction(s) to last immunotherapy dose(s), current health status, ACT (if appropriate), self-injectable epinephrine on patient(?) and peak flow (if appropriate)). Also, the patient must wait in our office for 30 minutes after receiving the vaccine(s). Furthermore, every patient must have an epinephrine pen (self-injectable) with them at the time of administration--and carry if for the following 1.5 hours after they leave our office. The patient must also have taken their antihistamine the day of the injection, preferably 2 hours prior. The consent form for SCIT (subcutaneous immunotherapy) is on file.
--- OUTSIDE RECORDS SUMMARY | 2024-07-16 12:18 | XMS_ITS | Patient Health Record ---
Author Organization [facility] Address [address] [place] [address] Care Team Providers Care Falsework Builder Name Role Phone Winston Brooks Primary Care Provider Unavailab le Adalgisa Dickinson Unavailable [phone] [facility], Provider Unavailable Unavailab le Allergies Allergen (clinical drug ingredient) Drug/Non Drug Allergy documented on EMR Reaction Allergy Type Onset Date Status ibuprofen Ibuprofen shortness of breath Drug Allergy Active Results Component Value Reference Range Notes Spirometry Reviewed date: Interpretation:Normal Performing Lab: Notes/Report: Normal SpiroPreBronchodilator_FVC 3.85 SpiroPostBronchodilator_FEF25_75 0 SpiroPreBronchodilator_FEF25_75 3.73 SpiroPreBronchodilator_FEV1 3.22 SpiroPrecentPredictionPost_FEF25_75 0 SpiroPrecentPredictionPost_FEV1 0 SpiroPrecentPredictionPost_FEV1_OVER_FVC 0 SpiroPrecentPredictionPost_FVC 0 SpiroPrecentPredictionPre_FEF25_75 112.7 SpiroPrecentPredictionPre_FEV1 97.3 SpiroPrecentPredictionPre_FEV1_OVER_FVC 105 SpiroPrecentPredictionPre_FVC 92.8 SpiroPredicted_FEF25_75 3.31 SpiroPreBronchodilator_FEV1_OVER_FVC 83.7 SpiroPreBronchodilator_PEF 7.5 SpiroPostBronchodilator_FVC 0 SpiroPostBronchodilator_FEV1 0 SpiroPostBronchodilator_FEV1_OVER_FVC 0 SpiroPostBronchodilator_PEF 0 SpiroPredicted_FVC 4.15 SpiroPredicted_FEV1 3.31 SpiroPredicted_FEV1_OVER_FVC 79.73 SpiroPredicted_PEF 7.7 Spirometry Reviewed date: Interpretation:Normal Performing Lab: Notes/Report: Normal SpiroPreBronchodilator_FVC 3.71 SpiroPostBronchodilator_FEF25_75 0 SpiroPreBronchodilator_FEF25_75 3.59 SpiroPreBronchodilator_FEV1 3.03 SpiroPrecentPredictionPost_FEF25_75 0 SpiroPrecentPredictionPost_FEV1 0 SpiroPrecentPredictionPost_FEV1_OVER_FVC 0 SpiroPrecentPredictionPost_FVC 0 SpiroPrecentPredictionPre_FEF25_75 108.5 SpiroPrecentPredictionPre_FEV1 91.5 SpiroPrecentPredictionPre_FEV1_OVER_FVC 102.3 SpiroPrecentPredictionPre_FVC 89.4 SpiroPredicted_FEF25_75 3.31 SpiroPreBronchodilator_FEV1_OVER_FVC 81.59 SpiroPreBronchodilator_PEF 4.62 SpiroPostBronchodilator_FVC 0 SpiroPostBronchodilator_FEV1 0 SpiroPostBronchodilator_FEV1_OVER_FVC 0 SpiroPostBronchodilator_PEF 0 SpiroPredicted_FVC 4.15 SpiroPredicted_FEV1 3.31 SpiroPredicted_FEV1_OVER_FVC 79.73 SpiroPredicted_PEF 7.7 Reason For Referral No Information Medications Medication SIG (Take, Route, Frequency, Duration) Notes Start Date End Date Status SIT (TRADITIONAL) variable per schedule SC per schedule for to be determined Active Montelukast Sodium 10 MG 1 tablet Orally Once a day for 90 days Active ZyrTEC Allergy 10 MG 1 tab(s) orally once a day for 90 days Not-Taking ZyrTEC Allergy 10 MG 1 tab(s) orally once a day for 90 days Active ALBUTEROL (EQV-PROAIR HFA) 90 MCG/INH INHALE 2 PUFFS BY MOUTH EVERY 4 TO 6 HOURS NEEDED AND PER THE ASTHMA ACTION PLAN for 30 *Please review for potential replacement for e-prescription and drug interaction check* Not-Taking Singulair 10 MG 1 tab(s) orally once a day for 90 days Not-Taking Albuterol Sulfate HFA 108 (90 Base) MCG/ACT 2 puffs as needed Inhalation every 4 hrs for 30 days Active ALBUTEROL (EQV-PROAIR HFA) 90 MCG/INH 2 PUFF(S) INHALED Q4-6 HOURS, PRN AND PER THE ASTHMA ACTION PLAN for 30 DAYS *Please review for potential replacement for e-prescription and drug interaction check* Not-Taking Fluticasone Propionate (Inhal) 100 MCG/INH 1 PUFF(S) INHALED 2 TIMES A DAY for 30 DAY(S) uses once a day *Please review and pick correct strength-formula tion from [employer] options. If intended option is not shown, discontinue and re-order from Quick Search* Active ZOLMitriptan 5 MG 1 tab(s) orally once a day uses prn Active droNABinol 10 MG 1 cap(s) orally 2 times a day Active DUPIXENT PRE-FILLED PEN 300 MG/2 ML DIRECTED SUBCUTANEOUSLY EVERY 2 WEEKS *Please review for potential replacement for e-prescription and drug interaction check* Active ZYRTEC 10 mg 1 tab(s) orally once a day for 90 days Active NASAL WASHES N/A as directed intranasally as needed Active Xyzal Allergy 24HR 5 MG 1 tablet PO Qday for 30 days 11/03/2020 Not-Taking Auvi-Q 0.3 MG/0.3ML as directed intramuscularly once for 30 days 11/12/2020 Active Immunizations Vaccine Route Administration Date Status Comme nts NOC Flucelevax Quadrivalent Unknown 03/11/2020 Refused Flucelvax Unknown 04/22/2019 Administered Social History Tobacco Use: Social History Observation Description Date Details (start date - stop date) Never Smoker NA - NA Smoking Smart Form: Question Answer Notes Are you a: never smoker Tobacco Control (Standard) Question Answer Notes Tobacco use: Nonsmoker Problems Problem Type SNOMED Code ICD Code Onset Dates Problem Status W/U Status Risk Notes Problem Chronic migraine without aura, non-refractory (disorder) (760359079288160) Migraine without aura, not intractable, without status migrainosus (G43.009) Active confirmed Problem Refractory migraine (701228743) Migraine, unspecified, intractable, without status migrainosus (G43.919) Active confirmed Problem Chronic allergic conjunctivitis (94321694) Other chronic allergic conjunctivitis (H10.45) Active confirmed Problem Common cold (14515605) Acute nasopharyngitis [common cold] (J00) Active confirmed Problem Allergic rhinitis caused by pollen (disorder) (05091751) Allergic rhinitis due to pollen (J30.1) Active confirmed Problem Allergic rhinitis caused by animal hair and dander (037979743575761) Allergic rhinitis due to animal (cat) (dog) hair and dander (J30.81) Active confirmed Problem Allergic rhinitis (31625510) Other allergic rhinitis (J30.89) Active confirmed Problem Chronic sinusitis (45077144) Chronic sinusitis, unspecified (J32.9) Active confirmed Problem Uncomplicated moderate persistent asthma (325028634) Moderate persistent asthma, uncomplicated (J45.40) Active confirmed Problem 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) (0359117690791897 8) Allergy status to analgesic agent status (Z88.6) Active confirmed Problem Allergic rhinitis caused by pollen (disorder) (01073173) Allergic rhinitis due to pollen (J30.1) Active confirmed Problem Allergic rhinitis caused by animal hair and dander (882785889514947) Allergic rhinitis due to animal (cat) (dog) hair and dander (J30.81) Active confirmed Problem Allergic rhinitis (34282442) Other allergic rhinitis (J30.89) Active confirmed Problem Exacerbation of moderate persistent asthma (disorder) (735133121) Moderate persistent asthma with (acute) exacerbation (J45.41) Active confirmed Problem Chronic allergic conjunctivitis (78526142) Other chronic allergic conjunctivitis (H10.45) Active confirmed Problem Food allergy (555259359) Allergy to other foods (Z91.018) Active confirmed Problem Adverse effect o f aspirin, initial encounter (T39.015A) Active confirmed Vital Signs Oximetry 97 % 06/05/2024 Blood pressure diastolic 83 mm Hg 06/05/2024 Height 66 in 06/05/2024 Blood pressure systolic 138 mm Hg 06/05/2024 Weight 171 lbs 06/05/2024 BMI 27.6 kg/m2 06/05/2024 Encounters Encounter Location Date Provider Diagnosis [facility] - [facility] [address] [place] [phone] 09/30/2023 Provider [facility] Allergic rhinitis due to pollen J30.1 ; Moderate persistent asthma, uncomplicated J45.40 and Allergic rhinitis due to pollen J30.1 [facility] [address] [place], [place] [address] [place] [phone] 2023 Adalgisa Dickinson Allergic rhinitis du e to pollen J30.1 ; Allergic rhinitis due to animal (cat) (dog) hair and dander J30.81 ; Other allergic rhinitis J30.89 and Other chronic allergic conjunctivitis H10.45 [facility] [address] [place] [address] [facility] [address] [address] 07/27/2023 Adalgisa Dickinson Allergic rhinitis du e to pollen J30.1 ; Allergic rhinitis due to animal (cat) (dog) hair and dander J30.81 ; Other allergic rhinitis J30.89 and Other chronic allergic conjunctivitis H10.45 [facility] [address] [place] [address] [facility] [address] [address] 08/03/2023 Adalgisa Dickinson Allergic rhinitis du e to pollen J30.1 ; Allergic rhinitis due to animal (cat) (dog) hair and dander J30.81 ; Other allergic rhinitis J30.89 and Other chronic allergic conjunctivitis H10.45 [facility] [address] [place] [address] [employer] [address] [place] [phone] 08/31/2023 Adalgisa Dickinson Allergic rhinitis du e to pollen J30.1 ; Allergic rhinitis due to animal (cat) (dog) hair and dander J30.81 ; Other allergic rhinitis J30.89 and Other chronic allergic conjunctivitis H10.45 [facility] [address] [place] [address] [employer] [address] [phone] 10/03/2023 Adalgisa Dickinson Allergic rhinitis du e to pollen J30.1 ; Allergic rhinitis due to animal (cat) (dog) hair and dander J30.81 ; Other allergic rhinitis J30.89 and Other chronic allergic conjunctivitis H10.45 [facility] [address] [place], [place] [address] [place] [phone] 11/02/2023 Adalgisa Dickinson Allergic rhinitis du e to pollen J30.1 ; Allergic rhinitis due to animal (cat) (dog) hair and dander J30.81 ; Other allergic rhinitis J30.89 and Other chronic allergic conjunctivitis H10.45 [facility] [address] [place] [address] [facility] [address] [address] 11/08/2023 Adalgisa Dickinson Moderate persistent asthma, uncomplicated J45.40 ; Chronic sinusitis, unspecified J32.9 ; Allergic rhinitis due to pollen J30.1 ; Allergy to other foods Z91.018 ; Migraine without aura, not intractable, without status migrainosus G43.009 ; Allergic rhinitis due to animal (cat) (dog) hair and dander J30.81 ; Other allergic rhinitis J30.89 ; Other chronic allergic conjunctivitis H10.45 and Allergy status to analgesic agent status Z88.6 [facility] [address] [place] [address] [facility] [address] [phone] 11/30/2023 Adalgisa Dickinson Allergic rhinitis du e to pollen J30.1 ; Allergic rhinitis due to animal (cat) (dog) hair and dander J30.81 ; Other allergic rhinitis J30.89 and Other chronic allergic conjunctivitis H10.45 [facility] [address] [place], [place] [address] [address] [address] 12/28/2023 Adalgisa Dickinson Allergic rhinitis du e to pollen J30.1 ; Allergic rhinitis due to animal (cat) (dog) hair and dander J30.81 ; Other allergic rhinitis J30.89 and Other chronic allergic conjunctivitis H10.45 [facility] [address] [place] [address] [facility] [address] [address] 01/25/2024 Adalgisa Dickinson Allergic rhinitis du e to pollen J30.1 ; Allergic rhinitis due to animal (cat) (dog) hair and dander J30.81 ; Other allergic rhinitis J30.89 and Other chronic allergic conjunctivitis H10.45 [facility] [address] [place] [address] [employer] [address] [phone] 02/22/2024 Adalgisa Dickinson Allergic rhinitis du e to pollen J30.1 ; Allergic rhinitis due to animal (cat) (dog) hair and dander J30.81 ; Other allergic rhinitis J30.89 and Other chronic allergic conjunctivitis H10.45 [facility] [address] [address] 03/21/2024 Adalgisa Dickinson Allergic rhinitis du e to pollen J30.1 ; Allergic rhinitis due to animal (cat) (dog) hair and dander J30.81 ; Other allergic rhinitis J30.89 and Other chronic allergic conjunctivitis H10.45 [facility] [address] [place] [phone] 04/18/2024 Adalgisa Dickinson Allergic rhinitis du e to pollen J30.1 ; Allergic rhinitis due to animal (cat) (dog) hair and dander J30.81 ; Other allergic rhinitis J30.89 and Other chronic allergic conjunctivitis H10.[address] [address] 05/21/2024 Adalgisa Dickinson Allergic rhinitis du e to pollen J30.1 ; Allergic rhinitis due to animal (cat) (dog) hair and dander J30.81 ; Other allergic rhinitis J30.89 and Other chronic allergic conjunctivitis H10.45 [facility] [address] [place] [phone] 06/05/2024 Adalgisa Dickinson Moderate persistent asthma, uncomplicated J45.40 ; Chronic sinusitis, unspecified J32.9 ; Allergic rhinitis due to pollen J30.1 ; Allergy to other foods Z91.018 ; Migraine without aura, not intractable, without status migrainosus G43.009 ; Allergic rhinitis due to animal (cat) (dog) hair and dander J30.81 ; Other allergic rhinitis J30.89 ; Other chronic allergic conjunctivitis H10.45 and Allergy status to analgesic agent status Z88.[address] [address] 06/18/2024 Adalgisa Dickinson Allergic rhinitis du e to pollen J30.1 ; Allergic rhinitis due to animal (cat) (dog) hair and dander J30.81 ; Other allergic rhinitis J30.89 and Other chronic allergic conjunctivitis H10.45 Assessments Encounter Date Diagnosis (ICD Code) Assessment Notes Treatment Notes Treatment Clinical Notes Section Notes 2023 Allergic rhinitis due to pollen (ICD-10 - J30.1) 07/27/2023 Allergic rhinitis due to pollen (ICD-10 - J30.1) 08/03/2023 Allergic rhinitis due to pollen (ICD-10 - J30.1) 09/30/2023 Allergic rhinitis due to pollen (ICD-10 - J30.1) 09/30/2023 Moderate persistent asthma, uncomplicated (ICD-10 - J45.40) 10/03/2023 Allergic rhinitis due to pollen (ICD-10 - J30.1) 11/02/2023 Allergic rhinitis due to pollen (ICD-10 - J30.1) 08/31/2023 Allergic rhinitis due to pollen (ICD-10 - J30.1) 11/08/2023 Chronic sinusitis, unspecified (ICD-10 - J32.9) Currently following with Dr. Huston and receiving Dupixent through his office. No interval sinusitis 11/08/2023 Moderate persistent asthma, uncomplicated (ICD-10 - J45.40) Devyn appears to have persistent asthma that flared secondary to Excedrin and influenza A requiring hospitalization . ACT 25 and normal spirometry. Since he is on Dupixent for nasal polyps, I am fine with holding Trelegy due to oral issues. He has already been treated with Nystatin and B12 level ordered by PCP. Continue Singulair and prn albuterol. He started SCIT to help with asthma control. Asthma action plan reviewed 11/30/2023 Allergic rhinitis due to pollen (ICD-10 - J30.1) 12/28/2023 Allergic rhinitis due to pollen (ICD-10 - J30.1) 01/25/2024 Allergic rhinitis due to pollen (ICD-10 - J30.1) 02/22/2024 Allergic rhinitis due to pollen (ICD-10 - J30.1) 03/21/2024 Allergic rhinitis due to pollen (ICD-10 - J30.1) 04/18/2024 Allergic rhinitis due to pollen (ICD-10 - J30.1) 05/21/2024 Allergic rhinitis due to pollen (ICD-10 - J30.1) 06/05/2024 Chronic sinusitis, unspecified (ICD-10 - J32.9) Currently following with Dr. Huston and receiving Dupixent through his office. No interval sinusitis 06/05/2024 Moderate persistent asthma, uncomplicated (ICD-10 - J45.40) Devyn appears to have persistent asthma that flared secondary to Excedrin and influenza A requiring hospitalization . ACT 18 and normal spirometry. We discussed restarting Trelegy until Dupixent is approved, but he is not interested at this time. Continue Singulair and prn albuterol. Asthma action plan reviewed 06/18/2024 Allergic rhinitis due to pollen (ICD-10 - J30.1) 06/18/2024 Allergic rhinitis due to animal (cat) (dog) hair and dander (ICD-10 - J30.81) 06/05/2024 Allergic rhinitis due to pollen (ICD-10 - J30.1) Devyn clearly suffers from atopic disease based upon history and our skin testing. Accordingly, we have introduced a new, aggressive medication regimen, discussed nasal washes and allergy-specific avoidance measures. He is tolerating SCIT without large local or systemic symptoms. He was instructed to carry his epinephrine autoinjector for 2 hours after leaving the office. 05/21/2024 Allergic rhinitis due to animal (cat) (dog) hair and dander (ICD-10 - J30.81) 04/18/2024 Allergic rhinitis due to animal (cat) (dog) hair and dander (ICD-10 - J30.81) 03/21/2024 Allergic rhinitis due to animal (cat) (dog) hair and dander (ICD-10 - J30.81) 02/22/2024 Allergic rhinitis due to animal (cat) (dog) hair and dander (ICD-10 - J30.81) 01/25/2024 Allergic rhinitis due to animal (cat) (dog) hair and dander (ICD-10 - J30.81) 12/28/2023 Allergic rhinitis due to animal (cat) (dog) hair and dander (ICD-10 - J30.81) 11/30/2023 Allergic rhinitis due to animal (cat) (dog) hair and dander (ICD-10 - J30.81) 11/08/2023 Allergic rhinitis due to pollen (ICD-10 - J30.1) Devyn clearly suffers from atopic disease based upon history and our skin testing. Accordingly, we have introduced a new, aggressive medication regimen, discussed nasal washes and allergy-specific avoidance measures. He is tolerating SCIT without large local or systemic symptoms. He was instructed to carry his epinephrine autoinjector for 2 hours after leaving the office. 08/31/2023 Allergic rhinitis due to animal (cat) (dog) hair and dander (ICD-10 - J30.81) 11/02/2023 Allergic rhinitis due to animal (cat) (dog) hair and dander (ICD-10 - J30.81) 10/03/2023 Allergic rhinitis due to animal (cat) (dog) hair and dander (ICD-10 - J30.81) 08/03/2023 Allergic rhinitis due to animal (cat) (dog) hair and dander (ICD-10 - J30.81) 07/27/2023 Allergic rhinitis due to animal (cat) (dog) hair and dander (ICD-10 - J30.81) 2023 Allergic rhinitis due to animal (cat) (dog) hair and dander (ICD-10 - J30.81) 2023 Other allergic rhinitis (ICD-10 - J30.89) 07/27/2023 Other allergic rhinitis (ICD-10 - J30.89) 08/03/2023 Other allergic rhinitis (ICD-10 - J30.89) 10/03/2023 Other allergic rhinitis (ICD-10 - J30.89) 09/30/2023 Allergic rhinitis due to pollen (ICD-10 - J30.1) 11/02/2023 Other allergic rhinitis (ICD-10 - J30.89) 08/31/2023 Other allergic rhinitis (ICD-10 - J30.89) 11/08/2023 Allergy to other foods (ICD-10 - Z91.018) Devyn appears to have several food intolerance including gluten sensitivity and sulfites. 11/30/2023 Other allergic rhinitis (ICD-10 - J30.89) 12/28/2023 Other allergic rhinitis (ICD-10 - J30.89) 01/25/2024 Other allergic rhinitis (ICD-10 - J30.89) 02/22/2024 Other allergic rhinitis (ICD-10 - J30.89) 03/21/2024 Other allergic rhinitis (ICD-10 - J30.89) 04/18/2024 Other allergic rhinitis (ICD-10 - J30.89) 05/21/2024 Other allergic rhinitis (ICD-10 - J30.89) 06/05/2024 Allergy to other foods (ICD-10 - Z91.018) Devyn appears to have several food intolerance including gluten sensitivity and sulfites. 06/18/2024 Other allergic rhinitis (ICD-10 - J30.89) 06/18/2024 Other chronic allergic conjunctivitis (ICD-10 - H10.45) 06/05/2024 Migraine without aura, not intractable, without status migrainosus (ICD-10 - G43.009) improvement with low tyramine diet. Several of his problematic foods-- alcohol and sausage are high in tyramine. He was instructed to keep a food diary. 05/21/2024 Other chronic allergic conjunctivitis (ICD-10 - H10.45) 04/18/2024 Other chronic allergic conjunctivitis (ICD-10 - H10.45) 03/21/2024 Other chronic allergic conjunctivitis (ICD-10 - H10.45) 02/22/2024 Other chronic allergic conjunctivitis (ICD-10 - H10.45) 01/25/2024 Other chronic allergic conjunctivitis (ICD-10 - H10.45) 12/28/2023 Other chronic allergic conjunctivitis (ICD-10 - H10.45) 11/30/2023 Other chronic allergic conjunctivitis (ICD-10 - H10.45) 11/08/2023 Migraine without aura, not intractable, without status migrainosus (ICD-10 - G43.009) improvement with low tyramine diet. Several of his problematic foods-- alcohol and sausage are high in tyramine. He was instructed to keep a food diary. Keep f/u with neurology if needed. 10/03/2023 Other chronic allergic conjunctivitis (ICD-10 - H10.45) 11/02/2023 Other chronic allergic conjunctivitis (ICD-10 - H10.45) 08/31/2023 Other chronic allergic conjunctivitis (ICD-10 - H10.45) 08/03/2023 Other chronic allergic conjunctivitis (ICD-10 - H10.45) 07/27/2023 Other chronic allergic conjunctivitis (ICD-10 - H10.45) 2023 Other chronic allergic conjunctivitis (ICD-10 - H10.45) 11/08/2023 Allergic rhinitis due to animal (cat) (dog) hair and dander (ICD-10 - J30.81) 06/05/2024 Allergic rhinitis due to animal (cat) (dog) hair and dander (ICD-10 - J30.81) 06/05/2024 Other allergic rhinitis (ICD-10 - J30.89) Follow allergen avoidance, meds as above 11/08/2023 Other allergic rhinitis (ICD-10 - J30.89) Follow allergen avoidance, meds as above 11/08/2023 Other chronic allergic conjunctivitis (ICD-10 - H10.45) 06/05/2024 Other chronic allergic conjunctivitis (ICD-10 - H10.45) 06/05/2024 Allergy status to analgesic agent status (ICD-10 - Z88.6) 11/08/2023 Allergy status to analgesic agent status (ICD-10 - Z88.6) 05/08/2024 Other 11/08/2023 Other 06/05/2024 Other Plan Of Treatment Next Appt Details Provider Name:Adalgisa mills, 07/16/2024 04:00:00 PM, 2022 [facility], [address], [address], Insurance Providers Payer Name Payer Address Payer Phone Subscriber Number Group Number Insured Name Patient Relationship to Insured Coverage Start Date Coverage End Date [employer] [address] [place] [address] [id number] Devyn Sharif Self - patient is the insured 5 Medical (General) History Medical History History ICD Code Migraines Moderate persistent asthma, uncomplicate d J45.40 Allergic rhinitis due to animal (cat) (d og) hair and dander J30.81 Other chronic allergic conjunctivitis H1 0.45 Allergy status to analgesic agent status Z88.6 Surgical History Surgery Date(Month/Year) tendon repair-- thumb 1986 cholecystectomy sinus surgery deviated septum repair
--- OUTSIDE RECORDS SUMMARY | 2024-07-16 12:18 | XMS_ITS | Encounter Summary ---
Author Organization [facility] Address [address] [place] [address] Care Team Providers Care Jewelry Racker Name Role Phone Brooks Montero DO Primary Care Provider [phone] Encounter Details Date Type Department Care Team (Late st Contact Info) Description 05/16/2022 Lab Requisition [facility] [address] [place] [address] Jose Ramon Kurtz MD [address] [place] [address] Social History Tobacco Use Types Packs/Day Years Used Date Smoking Tobacco: Never Assessed Sex and Gender Information Value Date Recorded Sex Assigned at Not on file Gender Identity Not on file Sexual Orientation Not on file documented as of this encounter Plan of Treatment Not on file documented as of this encounter Procedures Procedure Name Priority Date/Time Associated Diagnosis Comments DERMATOPATHOLOGY Routine 05/13/2022 12:0 0 AM SHORE MAN documented in this encounter Results * DERMATOPATHOLOGY (05/13/2022 12:00 AM SHORE MAN) Case Report Dermatopathology Report Case: [id number] Authorizing Provider: Jose Ramon Kurtz MD Collected: 05/13/2022 12:00 AM Ordering Location: [facility] Received: 05/16/2022 03:45 PM Pathologist: Marissa Samuels MD Specimen: Skin, right posterior shoulder 3:32 PM [facility] DERMATOPATHOLOGY LABORATORY Final Diagnosis Specimen A. SKIN, right posterior shoulder: SEBORRHEIC KERATOSIS, RETICULATED (ADENOID) TYPE (L82.1) (see microscopic description) 3:32 PM [facility] DERMATOPATH[facility]Y LABORATORY Clinical History Lentigo vs MM Path#[id number] 3 3:32 PM [facility] DERMATOPATHOLOGY LABORATORY Gross Description Specimen A: Received is one formalin filled container labeled with the patient's name and designated right posterior shoulder. The specimen consists of a shave biopsy measuring 5x4x1 mm. Jar 0. 3 3:32 PM [facility] DERMATOPATHOLOGY LABORATORY Microscopic Description Specimen A. SKIN, right posterior shoulder: There is reticulated hyperplasia of the epidermis with overlying delicate hyperorthokeratosis . Hyperpigmentation is present in the basaloid cells. MART-1/Melan-A staining highlights regular periodicity of melanocytes along the dermoepidermal junction. Additional deeper sections were obtained and reviewed. 3 3:32 PM [facility] DERMATOPATHOLOGY LABORATORY Disclaimer An external and internal positive and negative controls are appropriate for the histochemical, immunohistochemical and immunofluorescence stain(s) in this case (if any), except where stated explicitly. The performance characteristics of the stain(s) cited in this report were developed and its performance characteristic determined by the Dermatopathology Laboratory at [facility], directed by Dr. Carmelo Bar. These tests need not be, and therefore are not, approved by the [place] Food and Drug Administration. The tests are used for clinical purposes. Billing Codes Specimen Charges Stain Charges 94590 1 33054 1 3 3:32 PM [facility] DERMATOPATHOLOGY LABORATORY Embedded Images 3 3:32 PM [facility] DERMATOPATHOLOGY LABORATORY Pathology/Cytolog y TISSUE SPECIMEN FROM SKIN / Unknown 05/13/2022 05/16/2022 3:45 PM [facility] Jose Ramon Krutz MD LAB - PATHOLOGY/CYTO [facility] DERMATOPATHOLOGY LABORATORY [facility] - Department of Dermatology [facility] Medicine [address] [place] [address], [address] [place] [address], [facility] [phone] documented in this encounter Visit Diagnoses Not on filedocumented in this encounter Care Teams Jewelry Racker Relationship Specialty Start Date End Date Brooks Montero DO PCP - General 11/12/21 documented as of this encounter
--- OUTSIDE RECORDS SUMMARY | 2024-07-16 12:18 | XMS_ITS | Referral Summary ---
Author Organization [facility] Medical Office Building [facility] Address [address] [place] [address] Care Team Providers Care Boats Renter Name Role Phone Bora Meléndez MD Unavailable [phone] Brooks Montero DO Primary Care Provider [phone] Allergies Active Allergy Reactions Criticality Noted Date Comments Aspirin Other (See comments) Medium 05/30/2019 Aspirin-Acetaminoph en-Caffeine Anaphylaxis High 01/17/2020 NO ALLERGY TO ACETAMINOPHEN Aspirin-Acetaminoph en (Buffer) Wheezing Medium 05/30/2019 Gluten Wheezing High 05/31/2019 Ibuprofen Swollen tongue High 11/14/2018 Medications ZOLMitriptan (ZOMIG) 5 mg tabletIndicatio ns:Migraine Take 1 tablet (5 mg total) by mouth once as needed 2 7 Active butalbital-acet aminophen-caffe ine (FIORICET, ESGIC) 50-325-40 mg per tablet Take 1 tablet by mouth every 4 (four) hours as needed for headaches. Active diazePAM (VALIUM) 5 mg tablet Take 0.5 tablets (2.5 mg total) by mouth every 6 (six) hours as needed for anxiety Active albuterol HFA (PROVENTIL HFA,VENTOLIN HFA,PROAIR HFA) 90 mcg/actuation inhaler Inhale 2 puffs every 6 (six) hours as needed for wheezing Active Wixela Inhub 500-50 mcg/dose diskus inhaler INL 1 PUFF PO BID 0 Active ipratropium-alb uteroL (DUO-NEB) 0.5-2.5 mg/3 mL nebulizer solution U 3 ML VIA NEB Q 6 H UTD 0 Active Vios Aerosol Delivery System device U UTD 0 Active montelukast (SINGULAIR) 10 mg tablet Take 1 tablet (10 mg total) by mouth nightly 30 tablet 11 0 Active dronabinoL (MARINOL) 5 mg capsule TK 1 C PO QD PRN 0 Active gabapentin (NEURONTIN) 300 mg capsule Take 300 mg by mouth 3 (three) times a day 0 Active benzonatate (TESSALON) 100 mg capsuleIndicati ons:Cough Take 1 capsule (100 mg total) by mouth every 8 (eight) hours 21 capsule 3 Active Additional Information Patient not taking.Reported on 01/21/2024 fluticasone-ume clidin-vilanter (TRELEGY ELLIPTA) 100-62.5-25 mcg inhaler Inhale 1 puff daily 2 Active Active Problems Problem Noted Date Diagnosed Date Family history of colon cancer in mother 021 Overview (05/01/2020): Added automatically from request for surgery [id number] Personal history of colonic polyps 05/01/2020 Overview (05/01/2020): Added automatically from request for surgery [id number] Encounter for screening colonoscopy 05/01/2020 Overview (05/01/2020): Added automatically from request for surgery [id number] Moderate persistent asthma without complication 10/09/2019 Assessment & Plan (04/15/2020 7:59 PM INCLUSION SPECIALIST): Continue with Wixela and use duo nebs twice a day before using Wixela. If symptoms remain uncontrolled I will add LAMA. Assessment & Plan (10/09/2019 4:28 PM CDT): Continue with wixela , duo nebs and p.r.n. albuterol inhaler. Will obtain methacholine challenge test once he is completely asymptomatic. Allergic rhinitis 07/11/2019 Assessment & Plan (04/15/2020 7:59 PM INCLUSION SPECIALIST): CONTINUE WITH INTRANASAL CORTICOSTEROIDS. Assessment & Plan (10/09/2019 4:28 PM CDT): Continue with azelastin nasal spray. Assessment & Plan (07/11/2019 12:29 PM CDT): Continue with Flonase. Moderate persistent asthma with acute exacerbati on 05/30/2019 Assessment & Plan (07/11/2019 12:29 PM CDT): Continue with Wixela inhaler with p.r.n. albuterol and nebulization treatments. I will check full set of PFTs and IgE level. I will start him on Singulair. Patient was advised to avoid NSAID use. He was advised to use a mask at his workplace. Acute respiratory failure with hypoxia 0 Elevated hemoglobin 05/30/2019 Lactic acidosis 05/30/2019 SIRS (systemic inflammatory response syndrome) 0 05/30/2019 Viral upper respiratory tract infection 05/30/19 20 Acute cholecystitis due to biliary calculus 11/15 Umbilical hernia without obstruction and without gangrene 01/24/2017 Assessment & Plan (01/24/2017 3:38 PM CDT): The procedure of a umbilical hernia repair was explained to the patient along with the risks of surgery and risks of waiting for repair. The patient wishes to schedule repair around the holidays for time off from work reasons. Signs and symptoms of strangulation were explained to the patient and to seek emergency medical help is this occurs. Anxiety 01/18/2016 Migraine without aura and responsive to treatmen t 01/18/2016 Chronic daily headache 01/18/2016 Medication overuse headache 01/18/2016 Intractable migraine 10/29/2013 Overview (07/21/2016): MGRN UNSP W NTRC MGR STD Gastroesophageal reflux disease 08/31/2013 Overview (2016): ESOPHAGEAL REFLUX Assessment & Plan (04/15/2020 8:00 PM INCLUSION SPECIALIST): Symptoms of GERD are controlled without pharmacotherapy. Tension headache 08/31/2013 Overview (07/21/2016): TENSION HEADACHE NOS Severe asthma with exacerbation Immunizations Immunization Administration Dates Next Due Pneumococcal Polysaccharide PPV23 05/01/1998 TD Preservative Free 03/18/2009 Td, adsorbed 03/18/2009 Tdap 09/16/2015 Social History Tobacco Use Types Packs/Day Years Used Date Smoking Tobacco: Former Cigarettes 0.3 10 1 988 - 1997 Smokeless Tobacco: Never Tobacco Cessation:Counseling Given: Not Answered Alcohol Use Standard Drinks/Week Comments Yes 0 (1 standard drink = 0.6 oz pur e alcohol) monthly AUDIT-C Answer Date Recorded Frequency of Alcohol Consumption Monthly or less 05/30/2019 Average Number of Drinks 1 or 2 020 Frequency of Binge Drinking Less than monthly Personal Safety Answer Date Recorded Have you ever been in or are you currently in a harmful physical or emotional relationship or is someone making you feel afraid or unsafe? Denies 08/16/2022 Sex and Gender Information Value Date Recorded Sex Assigned at Not on file Legal Sex Male 11:54 PM INCLUSION SPECIALIST Gender Identity Not on file Sexual Orientation Not on file Last Filed Vital Signs Vital Sign Reading Time Taken Comments Blood Pressure 128/82 01/21/2024 11:38 AM CDT Pulse 89 01/21/2024 11:38 AM CDT Temperature 36.6 C (97.8 F) 01/21/2024 11:38 AM CDT Respiratory Rate 18 01/21/2024 11:38 AM CDT Oxygen Saturation 97% 01/21/2024 11:38 AM CDT Inhaled Oxygen Concentration - - Weight 68 kg (150 lb) 01/21/2024 11:38 AM CDT Height 167.6 cm (5' 6 ) 01/21/2024 11:38 AM CDT Body Mass Index 24.21 01/21/2024 11:38 AM CDT Plan of Treatment Not on file Medical Devices Implanted Type Area Sewing Machine Repairer Helper Device Identifier Shelf Expiration Date Model / Serial / Lot Patch Surgical Ventralex Sepra Sorbaflex Polypropylene Eptfe Small [place] Od1.7 In Monofilament Self Expand Strap Pocket Sterile Umbilical Hernia Repair - [id number] Implanted:Qty: 1 on 04/13/2017 by Anjel Quinones MD at [facility] Mesh N/A: Umbilical [employer]/C R Bard 03/14/2020 [id number] / / [id number] Insurance [facility] SIGNATURE [facility] CMR Advance Directives For more information, please contact: [phone] * Full Code (Latest Code Status on File) Date Activated Date Inactivated Comments 05/30/2019 6:33 PM 06/04/2019 7:35 PM * Full Code Date Activated Date Inactivated Comments 11/14/2018 6:07 AM 11/15/2018 4:39 PM Care Teams Boats Renter Relationship Specialty Start Date End Date Brooks Montero DO PCP - General Internal Medicine 08/16/22 Bora Meléndez MD 06/20/18
--- OUTSIDE RECORDS SUMMARY | 2024-07-16 12:18 | XMS_ITS | Encounter Summary ---
Author Organization [facility] Address [address] [place] [address] Care Team Providers Care Gang Rider Name Role Phone Bora Meléndez MD Primary Care Provider Encounter Details Date Type Department Care Team (Late st Contact Info) Description 01/13/2020 Prep for Procedure [place] Pre-Admission Testing [address] [place], [place] [id number] Washington Gamboa MD [address] [place] [address] [id number] Social History Tobacco Use Types Packs/Day Years Used Date Smoking Tobacco: Never Smokeless Tobacco: Never Alcohol Use Standard Drinks/Week Comments Not Currently 0 (1 standard drink = 0.6 oz pur e alcohol) social PHQ-2 Answer Date Recorded PHQ-2 Score 1 01/09/2020 Sex and Gender Information Value Date Recorded Sex Assigned at Not on file Legal Sex Male 4:44 PM REGISTERED NURSE RENAL Gender Identity Not on file Sexual Orientation Not on file COVID-19 Exposure Response Date Recorded In the last month, have you been in contact with someone who was confirmed or suspected to have Coronavirus / COVID-19? No / Unsure 01/13/2020 1:29 PM CDT documented as of this encounter Plan of Treatment Not on file documented as of this encounter Results * PRE-SURGICAL/PRE-PROCEDURE CORONAVIRUS (COVID 19) (01/14/2020 9:55 AM CDT) CORONAVIRUS SARS COV 2 PCR (RESP) NOT DETECTED NOT DETECTED 01/15/2020 4:56 PM CDT [facility] Comment: A Not Detected (negative) test result for this test means that SARS- CoV-2 RNA was not present in the specimen above the limit of detection. A negative result does not rule out the possibility of COVID-19 and should not be used as the sole basis for treatment or patient management decisions. If COVID-19 is still suspected, based on exposure history together with other clinical findings, re-testing should be considered in consultation with public health authorities. Laboratory test results should always be considered in the context of clinical observations and epidemiological data in making a final diagnosis and patient management decisions. Please review the Fact Sheets and FDA authorized labeling available for health care providers and patients using the following websites: https://www.IndiaIdeas.AptDeco/home/Covid-19/HCP/NAAT/fact-sheet2 https://www.IndiaIdeas.AptDeco/home/Covid-19/Patients/NAAT/ fact-sheet2 This test has been authorized by the FDA under an Emergency Use Authorization (EUA) for use by authorized laboratories. Due to the current public health emergency, [facility] is receiving a high volume of samples from a wide variety of swabs and media for COVID-19 testing. In order to serve patients during this public health crisis, samples from appropriate clinical sources are being tested. Negative test results derived from specimens received in non-commercially manufactured viral collection and transport media, or in media and sample collection kits not yet authorized by FDA for COVID-19 testing should be cautiously evaluated and the patient potentially subjected to extra precautions such as additional clinical monitoring, including collection of an additional specimen. Methodology: Nucleic Acid Amplification Test (NAAT) includes PCR or TMA Additional information about COVID-19 can be found at the [facility] website: www.CredSimple.AptDeco/Covid19. Test performed at [facility] [address] [place] [address] Director: MYRON FAJARDO DO,MPH FIRST TEST NO 01/14/2020 10:30 AM CDT [facility] EMPLOYED IN HEALTHCARE NO 01/14/2020 10:30 AM CDT [facility] SYMPTOMATIC DEFINED BY CDC NO 01/14/2020 10:30 AM CDT [facility] DATE OF SYMPTOM ONSET =FASTING UNKNOWN 01/14/2020 10:58 AM CDT [facility] HOSPITALIZATION STATUS NO 01/14/2020 10:30 AM CDT [facility] PATIENT IN ICU NO 01/14/2020 10:30 AM CDT [facility] RESIDENT OF [facility] C[facility] NO 01/14/2020 10:30 AM CDT [facility] NOT 01/14/2020 10:58 AM CDT [facility] PATIENT'S RACE WHITE OR 01/14/2020 10:30 AM CDT [facility] ETHNICITY NONHISPANIC 01/14/2020 10:30 AM CDT [facility] SOURCE (QST) NASOPHARYNGEAL SWAB 01/14/2020 10:30 AM CDT [facility] NASOPHARYNGEAL SWAB / Unknown 01/14/2020 9:55 AM CDT us Washington Gamboa MD MICROBIOLOGY - GENERAL ORDERABL ES Final Result Performing Organization Address City/State/[facility] Co de Phone Number [facility] [address] [place] [address], [facility] [address] documented in this encounter Visit Diagnoses Diagnosis Pre-op exam- Primary Preoperative examination, unspecified documented in this encounter Additional Health Concerns Infection Onset Date Last Indicated Resolved Time COVID-19 Rule Out 01/14/2020 01/14/2020 01/15/2020 4:56 PM CDT documented as of this encounter Care Teams Gang Rider Relationship Specialty Start Date End Date Bora Meléndez MD [address] [address] PCP - General INTERNAL MEDICINE 09/11/19 documented as of this encounter
--- OUTSIDE RECORDS SUMMARY | 2024-07-16 12:18 | XMS_ITS | Clinical Summary ---
Author Organization [facility] Medical Office Building [facility] Address [address] [place] [address] Care Team Providers Care Fusing Machine Feeder Name Role Phone Bora Meléndez MD Unavailable Brooks Montero DO Primary Care Provider +1- [phone] Allergies Active Allergy Reactions Criticality Noted Date [...] (05/01/2020): Added automatically from request for surgery [id number] Personal history of colonic polyps 05/01/2020 Overview (05/01/2020): Added automatically from request for surgery [id number] Encounter for screening colonoscopy 05/01/2020 Overview (05/01/2020): Added automatically from request for surgery [id number] Moderate persistent asthma without complication 10/09/2019 Assessment & Plan (04/15/2020 7:59 PM PREPARATION PLANT REPAIRER): Continue with Wixela and use duo nebs twice a day before using Wixela. If symptoms remain uncontrolled I will add LAMA. Assessment & Plan (10/09/2019 4:28 PM CDT): Continue with wixela , duo nebs and p.r.n. albuterol inhaler. Will obtain methacholine challenge test once he is completely asymptomatic. Allergic rhinitis 07/11/2019 Assessment & Plan (04/15/2020 7:59 PM PREPARATION PLANT REPAIRER): CONTINUE WITH INTRANASAL CORTICOSTEROIDS. Assessment & Plan [...] REFLUX Assessment & Plan (04/15/2020 8:00 PM PREPARATION PLANT REPAIRER): Symptoms of GERD are controlled without pharmacotherapy. Tension headache 08/31/2013 Overview (07/21/2016): TENSION HEADACHE NOS Severe asthma with exacerbation Immunizations Immunization Administration Dates Next Due Pneumococcal Polysaccharide PPV23 05/01/1998 TD Preservative Free 03/18/2009 Td, adsorbed 03/18/2009 Tdap 09/16/2015 Surgical History Surgery Date Site/Laterality Comments TENDON REPAIR Left Thumb FUNCTIONAL ENDOSCOPIC SINUS SURGERY local only HERNIA REPAIR 04/13/2017 Repair umbilical hernia with mesh MASTECTOMY FOR GYNECOMASTIA 04/17/2018 - 04/16/2019 Bilateral NASAL SEPTUM SURGERY CHOLECYSTECTOMY 11/14/2018 Medical History Medical History Date Comments Hx Other Medical Headache, migra ine Tension headache Headache, tensi on Chronic headaches Muscular pain GERD (gastroesophageal reflux disease) Peptic ulceration Asthma Family History Medical History Relation Name Comments Anuerysm Brother 2 aneurysm; Cause of : aneurysm Cancer Father Cancer; Other Father Alive and well; Cancer Mother Cancer; Colon cancer Mother Cancer, colon; Migraines Mother Migraine; Ovarian cancer Mother ovarian cance r; Colon cancer Other Family history of Cancer, colon; Relation Name Status Comments Brother 1 Brother 2 Father Mother Alive Other Social History Tobacco Use Types Packs/Day Years Used Date Smoking Tobacco: Former Cigarettes 0.3 10 1 988 - 1998 Smokeless Tobacco: Never Tobacco Cessation:Counseling Given: Not [...] on file Legal Sex Male 11:54 PM PREPARATION PLANT REPAIRER Gender Identity Not on file Sexual Orientation Not on file Obstetrics History Last Filed Vital Signs Vital Sign Reading [...] 01/21/2024 11:38 AM CDT Plan of Treatment Health Maintenance Due Date Last Done Comments Colon Cancer Screening-Colonoscopy 1964 Depression Screening 1964 Hepatitis C Screening 1964 Prostate Cancer Screening-PSA 1964 Hepatitis B Screening 1982 Regular Well Visit/Exam 18-64 1982 Pneumococcal vaccine <65 (2 of 2 - PCV) 05/01/1999 05/01/1998 Zoster Vaccine (1 of 2) 2014 Influenza Vaccine (#1) 2023 DTaP/Tdap/Td Vaccine (2 - Td or Tdap) 09/15/2025 09/16/2015, 03/18/2009, 03/18/2009 Medical Devices Implanted Type Area Accounts Payable Supervisor Device Identifier Shelf Expiration Date Model / Serial / Lot Patch Surgical Ventralex Sepra Sorbaflex Polypropylene Eptfe Small [place] Od1.7 In Monofilament Self Expand Strap Pocket Sterile Umbilical Hernia Repair - [id number] Implanted:Qty: 1 on 04/13/2017 by Anjel Quinones MD at [facility] Mesh N/A: Umbilical [employer]/C R Bard 03/14/2020 [id number] / / [id number] Insurance [facility] [employer] SIGNATURE Advance Directives For more information, please contact: [phone] * Full Code (Latest Code Status on File) Date Activated Date Inactivated Comments 05/30/2019 6:33 PM 06/04/2019 7:35 PM * Full Code Date Activated Date Inactivated Comments 11/14/2018 6:07 AM 11/15/2018 4:39 PM Care Teams Fusing Machine Feeder Relationship Specialty Start Date End Date Brooks Montero DO PCP - General Internal Medicine 08/16/22 Bora Meléndez MD 06/20/18
[2024-07-16 14:00] LABS: Basophils Absolute Auto 0.1 K/mm3 (0.0-0.1); Basophils Percent Auto 0.7 % (0.2-1.2); Eosinophils Absolute Auto 0.5 K/mm3 (0-0.3); Eosinophils Percent Auto 7.8 % (0-4.4); Hematocrit 53.9 % (42.0-52.0); Hemoglobin 18.6 g/dL (14.0-18.0); Immature Granulocyte Absolute 0.03 K/mm3 (0.00-0.031); Immature Granulocyte Percent A 0.4 % (0-0.5); Lymphocytes Absolute Auto 1.32 K/mm3 (0.9-3.2); Lymphocytes Percent Auto 19.3 % (18.3-44.2); Mean Corpuscular HGB Conc 34.5 g/dl (32-36); Mean Corpuscular Hemoglobin 31.8 pg (26-34); Mean Corpuscular Volume 92.1 fl (80-100); Mean Platelet Volume 9.9 fl (7.4-10.4); Monocytes Absolute Auto 0.6 K/mm3 (0.1-0.6); Monocytes Percent Auto 8.8 % (2.6-8.5); Neutrophils Absolute Auto 4.3 K/mm3 (1.3-6.7); Platelet Count Result 235 k/mm3 (150-375); Red Blood Count 5.85 M/mm3 (4.6-6.20); Red Cell Distribution Width 13.1 % (11.5-14.5); White Blood Count 6.8 K/mm3 (4.5-10.0)
[2024-07-16 20:10] LABS: Alanine Aminotransferase 36 U/L (6-50); Albumin Level 4.8 g/dL (3.5-5.1); Alkaline Phosphatase 49 U/L (38-126); Anion Gap 14 mmol/L (4-12); Aspartate Amino Transferase 35 U/L (17-59); Bilirubin,Total 0.6 mg/dL (0.2-1.3); Blood Urea Nitrogen 13 mg/dL (9-20); Carbon Dioxide 23 mmol/L (22-30); Chloride 106 mmol/L (98-107); Cholesterol 146 mg/dL (0-200); Estimated Glomerular Filt Rate > 60; Glucose 87 mg/dL (65-110); HDL Direct 40 mg/dL; Potassium 4.9 mmol/L (3.4-5.0); Sodium 143 mmol/L (137-145); Triglycerides 80 mg/dL (<150)
[2024-07-16 20:22] LABS: LDL Cholesterol Direct 87 mg/dL
[2024-07-17 10:44] LABS: Protein, Total 7.4 g/dL (6.1-8.1)
[2024-07-17 11:02] LABS: Prostate Specific Antigen 2.6 ng/mL (< OR = 4.0)
[2024-07-17 20:09] LABS: Abnormal Protein Band 1 0.8 g/dL (NONE DETECTED); Albumin 4.9 g/dL (3.8-4.8); Alpha 1 Globulin 0.2 g/dL (0.2-0.3); Alpha 2 Globulin 0.5 g/dL (0.5-0.9); Beta 1 Globulin 0.4 g/dL (0.4-0.6); Gamma Globulin 1.1 g/dL (0.8-1.7)
== END 2024-07-16 10:59 | disposition home or self-care (01) ==
LOC: ANHGOSHLAB 10:59
PROVIDERS: PCP Internal Medicine; Visit Provider Nurse Practitioner
DX: E78.1 Pure hyperglyceridemia (principal); Z13.29 Encounter for screening for other suspected endocrine disorder; Z12.5 Encounter for screening for malignant neoplasm of prostate
CPT/HCPCS: 36415; 80053; 80061; 84153; 84155; 84165; 85025; 86334; G0103

== ENCOUNTER 2024-07-24 00:03 | Day surgery (SDC) | payer OTHER, SELFPAY ==
[2024-07-16 13:04] VITALS: BMI 24.3
--- NOTE | 2024-07-16 13:10 | PC.NURSE ---
Report to the Outpatient Waiting Room, entrance under the green pavilion located off [facility], at time _0830_ on date _[id number]_. Planned Procedure Time: _1030_.? Time changes happen often and if your time is changed the preop area will call you the afternoon before. - You and your visitor will be asked to self-screen and do not enter if you have any COVID symptoms. Please call surgeon if you need to reschedule. - A mask is optional within the hospital at this time. Patients may have clear liquids (water, carbonated beverages, clear teas, apple juice) until 3 hours prior to surgery with a maximum of 20 ounces. - No food from midnight until time of surgery and no smoking, or chewing tobacco (or any form of nicotine). No chewing gum, candy or mints. Take only the following medications with a SIP of water on the morning of surgery: __None DO NOT STOP ANY OF YOUR OTHER PRESCRIPTION MEDICATIONS PRIOR TO SURGERY EXCEPT THE FOLLOWING Hold all vitamins and supplements for 3 days per anesthesiologist. Medications to discontinue per physician Date to take last dose Please no make-up, nail faroese, hairspray, perfume, deodorant, or body powder the day of surgery.? No jewelry (including any body piercings) or valuables the day of surgery, leave them at home.? Please take a shower or bath the night before, or the morning of, surgery with an antibacterial soap.? Wear comfortable, loose fitting clothing.? - Jewelry must be removed prior to entering the operating room.? Rings and piercings that are not removed may be cut off. - The hospital will not accept responsibility for valuables.? - Please leave all valuables, including medications, at home the day of surgery. If you are going home after surgery, a licensed hook up driver must drive you home.? - NO public transportation without another adult if you receive anesthesia. - We recommend that an adult stay with you for 24 hours following discharge. - We also recommend that you do not drive, make important decision, drink alcoholic beverages, or take any drugs that were not prescribed by your health care provider for at least 24 hours after your discharge time. Follow any additional instructions given to you from your surgeon. Telephone instructions given to __Devyn___and asked if any additional questions and then verbalized understanding. Patient advised to call surgeon office or pre surgery nurse liaison [phone] if any additional questions.
[2024-07-24] VITALS (9 sets, daily range): BP systolic 116–129; BP diastolic 79–98; PULSE 71–88; RESP 14–20; TEMP 36.1–36.4; O2SAT 96–100; BMI 23.9
--- OUTSIDE RECORDS SUMMARY | 2024-07-24 00:05 | XMS_ITS | Clinical Summary ---
Author Organization [facility] Address [facility] [place] [address] Care Team Providers Care Drum Sander Name Role Phone Bora Meléndez MD Primary [...] Date Severe asthma with exacerbation ([facility]) 2019 Allergic rhinitis 07/11/2019 Overview (09/11/2019): Last Assessment & Plan: Continue with Flonase. Acute respiratory failure with hypoxia ([facility]) 05/30/2019 Elevated hemoglobin 05/30/2019 Lactic acidosis 05/30/2019 [...] on file Legal Sex Male 4:44 PM COMMUNITY SERVICE AIDE Gender Identity Not on file Sexual Orientation Not on file Last Filed Vital Signs Vital Sign Reading Time Taken Comments Blood Pressure 130/90 03/19/2020 2:03 PM COMMUNITY SERVICE AIDE Pulse 83 03/19/2020 2:03 PM COMMUNITY SERVICE AIDE Temperature 36.7 C (98.1 F) 03/19/2020 2:03 PM COMMUNITY SERVICE AIDE Respiratory Rate 16 01/17/2020 1:10 PM CDT Oxygen Saturation 97% 02/06/2020 3:51 PM CDT Inhaled Oxygen Concentration - - Weight 60.6 kg (133 lb 9.6 oz) 03/19/2020 2:03 P M COMMUNITY SERVICE AIDE Height 167.6 cm (5' 6 ) 03/19/2020 2:03 PM COMMUNITY SERVICE AIDE Body Mass Index 21.56 03/19/2020 2:03 PM COMMUNITY SERVICE AIDE Plan of Treatment Health Maintenance Due Date [...] this topic Medical Devices Implanted Type Area Senior Electronics Engineer Device Identifier Shelf Expiration Date Model / Serial / Lot Dx Swivel Lock Implanted:Qty: 1 on 01/17/2020 by Washington Gamboa MD at [facility] Right: [employer] 07/14/2021 [id number] / / [id number] Insurance [employer] Care Teams Drum Sander Relationship Specialty Start Date End Date Bora Meléndez MD [address] [address] PCP - General INTERNAL MEDICINE 09/11/19
--- OUTSIDE RECORDS SUMMARY | 2024-07-24 00:05 | XMS_ITS | Clinical Summary ---
Author Organization [facility] Address [address] [place] [address] Phone Care Team Providers Care Magistrate Name Role Phone Lenorubi Brooks Joseph DO [...] Comments Blood Pressure 140/88 03/28/2023 5:26 PM RHEUMATOLOGY SPECIALIST Pulse 79 03/28/2023 5:26 PM RHEUMATOLOGY SPECIALIST Temperature 36.5 C (97.7 F) 03/28/2023 5:26 PM RHEUMATOLOGY SPECIALIST Respiratory Rate 18 03/28/2023 5:26 PM RHEUMATOLOGY SPECIALIST Oxygen Saturation 99% 03/28/2023 5:26 PM RHEUMATOLOGY SPECIALIST Inhaled Oxygen Concentration - - Weight 65.8 kg (145 lb) 03/28/2023 5:26 PM RHEUMATOLOGY SPECIALIST Height 167.6 cm (5' 6 ) 08/12/2017 [...] age to complete this topic Insurance [facility] Care Teams Magistrate Relationship Specialty Start Date End Date Brooks Montero DO [address] [place] [address] [address] [facility] [place] [address] PCP - General Internal Medicine 11/25/21
--- OUTSIDE RECORDS SUMMARY | 2024-07-24 00:05 | XMS_ITS ---
Author Organization [facility] Address [address] [place] [address] Care Team Providers Care Customer Advisor Specialist Name Role Phone Brooks Monetro Primary Care Provider Unavailab Adalgisa Burrows Unavailable [phone] REASON FOR VISIT SCIT - Traditional Schedule Allergy immunotherapy Medications Medication SIG (Take, Route, Frequency, Duration) Notes Start Date End Date Status SIT (TRADITIONAL) variable per schedule SC per schedule for to be determined Active Encounters Encounter Location Date Provider Diagnosis [facility] [address] [address] 07/16/2024 Adalgisa Dickinson Allergic rhinitis du e to pollen J30.1 ; Allergic rhinitis due to animal (cat) (dog) hair and dander J30.81 ; Other allergic rhinitis J30.89 and Other chronic allergic conjunctivitis H10.45 Assessments Encounter Date Diagnosis (ICD Code) Assessment Notes Treatment Notes Treatment Clinical Notes Section Notes 07/16/2024 Allergic rhinitis due to pollen (ICD-10 - J30.1) 07/16/2024 Allergic rhinitis due to animal (cat) (dog) hair and dander (ICD-10 - J30.81) 07/16/2024 Other allergic rhinitis (ICD-10 - J30.89) 07/16/2024 Other chronic allergic conjunctivitis (ICD-10 - H10.45) Plan Of Treatment Medication Medication Name Sig Start Date Stop Date Notes SIT (TRADITIONAL) variable per schedule SC per schedule for to be determined Next Appt Details Follow Up: 1 Week, Reason: Progress Notes * Devyn ISRAELB:1965 (59 yo M)Acc No.[id number]:07/16/2024 SCIT-Aeroallergen Patient: Devyn CONNOLLY Provider: Calvin Dickinson MD :1965 A ge:58 Y S ex:Male Date:07/16/2024 Address:[facility] [address] [facility] Pcp:Brooks Montero Subjective: * Chief Complaints: * 1 . SCIT - Traditional Schedule Allergy immunotherapy. * HPI: * Introduction: The patient is [...] immunotherapy) is on file. * Medical History: Objective: * Vitals: Assessment: * Assessment: 1. [...] Information: * Visit Code: * Procedure Codes: 46173 IMMUNOTHERAPY INJECTIONS. * Electronic signature of Lottie Dickinson MD on 07/24/2024 at 12:05 AM CDT Sign off status: Pending * Provider: Calvin Dickinson MD Date: 07/16/2024 Generated for Tristen bass/Lucretia/Eric on: 07/24/2024 12:05 AM CDT History and Physical Notes * [...]
--- OUTSIDE RECORDS SUMMARY | 2024-07-24 00:05 | XMS_ITS | Encounter Summary ---
Author Organization [facility] Address [address] [place] [address] Care Team Providers Care Collar Folder Operator Name Role Phone Brooks Montero DO Primary Care Provider [phone] Encounter Details Date Type Department Care Team (Late st Contact Info) Description 05/16/2022 Lab Requisition [facility] [address] [place] [address] Jose Ramon Kurtz MD [address] [place] [address] Social History Tobacco Use Types Packs/Day [...] Comments DERMATOPATHOLOGY Routine 05/13/2022 12:0 0 AM ASSIGNMENT CLERK documented in this encounter Results * DERMATOPATHOLOGY (05/13/2022 12:00 AM ASSIGNMENT CLERK) Case Report Dermatopathology Report Case: [id number] Authorizing Provider: Jose Ramon Kurtz MD Collected: 05/13/2022 12:00 AM Ordering Location: [facility] Received: 05/16/2022 03:45 PM Pathologist: Marissa Samuels MD Specimen: Skin, right posterior shoulder 3:32 PM ASSIGNMENT CLERK DERMATOPATHOLOGY LABORATORY Final Diagnosis Specimen A. SKIN, right posterior shoulder: SEBORRHEIC KERATOSIS, RETICULATED (ADENOID) TYPE (L82.1) (see microscopic description) 3:32 PM ASSIGNMENT CLERK DERMATOPATHOLOGY LABORATORY Clinical History Lentigo vs MM Path#[id number] 3 3:32 PM [facility] DERMATOPATHOLOGY LABORATORY Gross Description Specimen A: Received is one formalin filled container labeled with the patient's name and designated right posterior shoulder. The specimen consists of a shave biopsy measuring 5x4x1 mm. Jar 0. 3 3:32 PM [facility] DERMATOPATHOLOGY LABORATORY Microscopic Description Specimen A. SKIN, right posterior shoulder: There is reticulated hyperplasia of the epidermis with overlying delicate hyperorthokeratosis . Hyperpigmentation is present in the basaloid cells. MART-1/Melan-A staining highlights regular periodicity of melanocytes along the dermoepidermal junction. Additional deeper sections were obtained and reviewed. 3 3:32 PM [facility] DERMATOPATHOLOGY [facility]ORATORY Disclaimer An external and internal positive and negative controls are appropriate for the histochemical, immunohistochemical and immunofluorescence stain(s) in this case (if any), except where stated explicitly. The performance characteristics of the stain(s) cited in this report were developed and its performance characteristic determined by the Dermatopathology Laboratory at [facility], directed by Dr. Caremlo Bar. These tests need not be, and therefore are not, approved by the [place] Food and Drug Administration. The tests are used for clinical purposes. Billing Codes Specimen Charges Stain Charges 44693 1 94899 1 3 3:32 PM [facility] DERMATOPATHOLOGY [facility]OR[facility] Embedded Images 3 3:32 PM [facility] DERMATOPATHOLOG[facility]ORY Pathology/Cytolog y TISSUE SPECIMEN FROM SKIN / Unknown 05/13/2022 05/16/2022 3:45 PM [facility] Jose Ramon Kurtz MD LAB - PATHOLOGY/CYTO LOGY ORDERABLES DERMATOPATHOLOGY LABORATORY [facility] - Department of Dermatology [facility] [address] [place] [address], [address] [place] [address], [facility] [phone] documented in this encounter Visit Diagnoses Not on filedocumented in this encounter Care Teams Collar Folder Operator Relationship Specialty Start Date End Date Brooks Montero DO PCP - General 11/12/21 documented as of this encounter
--- OUTSIDE RECORDS SUMMARY | 2024-07-24 00:05 | XMS_ITS | Clinical Summary ---
Author Organization [facility] Address [address] [place] [address] Care Team Providers Care Perforating Machine Operator Name Role Phone Brooks Montero DO Primary Care Provider [phone] [phone] Source Comments [facility],non-owned Affiliates and Associated Physician Practices is amultiple site organization consisting of ambulatory clinics and hospital sitesin [place], [place]. This disclosure is being madepursuant to the Care Everywhere program and may not contain all information available regarding this patient. Last updated 18.[facility] Social History Tobacco Use Types Packs/Day Years [...] VACCINE ( - 2023-2 5 season) 2023 DEPRESSION SCREENING 04/17/2024 INFLUENZA VACCINE (Season Ended) 2024 HIB VACCINE Aged Out No longer eligi [...] age to complete this topic Care Teams Perforating Machine Operator Relationship Specialty Start Date End Date Brooks Montero DO PCP - General 11/12/21
--- OUTSIDE RECORDS SUMMARY | 2024-07-24 00:06 | XMS_ITS ---
Author Organization [facility] Address [address] [place] [address] Care Team Providers Care Bottling Line Attendant Name Role Phone Brooks Montero Primary Care Provider Adalgisa Phillips Unavailable [phone] Allergies Allergen (clinical drug ingredient) Drug/Non Drug [...] 4.15 SpiroPredicted_FEV1 3.31 SpiroPredicted_FEV1_OVER_FVC 79.73 SpiroPredicted_PEF 7.7 REASON FOR VISIT Chronic sinusitis/ARC - off Dupixent and recent flares, Asthma follow-up - recent flares Medications Medication SIG (Take, Route, Frequency, Duration) Notes Start Date End Date Status Xyzal Allergy 24HR 5 MG 1 tablet PO Qday for 30 days 11/03/2020 Not-Taking Fluticasone Propionate (Inhal) 100 MCG/INH 1 PUFF(S) INHALED 2 TIMES A DAY for 30 DAY(S) uses once a day *Please review and pick correct strength-formula tion from Alai options. If intended option is not shown, [...] once a day for 90 days Active ZyrTEC Allergy 10 MG 1 tab(s) orally once a day for 90 days Active Montelukast Sodium 10 MG 1 tablet Orally Once a day for 90 days Active NASAL WASHES N/A as directed intranasally as needed Active Albuterol Sulfate HFA 108 (90 Base) MCG/ACT 2 puffs as needed Inhalation every 4 hrs for 30 days Active ALBUTEROL (EQV-PROAIR HFA) 90 MCG/INH INHALE 2 PUFFS BY MOUTH EVERY 4 TO 6 HOURS NEEDED AND PER THE ASTHMA ACTION PLAN for 30 *Please review for potential replacement for e-prescription and drug interaction check* Not-Taking SIT (TRADITIONAL) variable per schedule SC per schedule for to be determined Active Singulair 10 MG 1 tab(s) orally once a day for 90 days Not-Taking ALBUTEROL (EQV-PROAIR HFA) 90 MCG/INH 2 PUFF(S) INHALED Q4-6 HOURS, PRN AND PER THE ASTHMA ACTION PLAN for 30 DAYS *Please review for potential replacement for e-prescription and drug interaction check* Not-Taking ZyrTEC Allergy 10 MG 1 tab(s) orally once a day for 90 days Not-Taking Auvi-Q 0.3 MG/0.3ML as directed intramuscularly once for 30 days 11/12/2020 Active Social History Tobacco Use: Social History Observation Description Date Details (start date - stop date) Never Smoker NA - NA Smoking Smart Form: Question Answer Notes Are you a: never smoker Tobacco Control (Standard) Question Answer Notes Tobacco use: Nonsmoker Vital Signs Blood pressure systolic 138 mm Hg 06/05/19 25 Blood pressure diastolic 83 mm Hg 025 Height 66 in 06/05/2024 Weight 171 lbs 06/05/2024 BMI 27.6 kg/m2 06/05/2024 Oximetry 97 % 06/05/2024 Encounters Encounter Location Date Provider Diagnosis [facility] [address] [address] 06/05/2024 Adalgisa Alok Moderate persistent asthma, uncomplicated J45.40 ; Chronic [...] Allergy status to analgesic agent status Z88.6 Assessments Encounter Date Diagnosis (ICD Code) Assessment Notes Treatment Notes Treatment Clinical Notes Section Notes 06/05/2024 Moderate persistent asthma, uncomplicated (ICD-10 - J45.40) Devyn appears to have persistent asthma that flared secondary to Excedrin and influenza A requiring hospitalization . ACT 18 and normal spirometry. We discussed restarting Trelegy until Dupixent is approved, but he is not interested at this time. Continue Singulair and prn albuterol. Asthma action plan reviewed 06/05/2024 Chronic sinusitis, unspecified (ICD-10 - J32.9) Currently following with Dr. Huston and receiving Dupixent through his office. No interval sinusitis 06/05/2024 Allergic rhinitis due to pollen (ICD-10 - J30.1) Devyn clearly suffers from atopic disease based upon history and our skin testing. Accordingly, we have introduced a new, aggressive medication regimen, discussed nasal washes and allergy-specific avoidance measures. He is tolerating SCIT without large local or systemic symptoms. He was instructed to carry his epinephrine autoinjector for 2 hours after leaving the office. 06/05/2024 Allergy to other foods (ICD-10 - Z91.018) Devyn appears to have several food intolerance including gluten sensitivity and sulfites. 06/05/2024 Migraine without aura, not intractable, without status migrainosus (ICD-10 - G43.009) improvement with low tyramine diet. Several of his problematic foods-- alcohol and sausage are high in tyramine. He was instructed to keep a food diary. 06/05/2024 Allergic rhinitis due to animal (cat) (dog) hair and dander (ICD-10 - J30.81) 06/05/2024 Other allergic rhinitis (ICD-10 - J30.89) Follow allergen avoidance, meds as above 06/05/2024 Other chronic allergic conjunctivitis (ICD-10 - H10.45) 06/05/2024 Allergy status to analgesic agent status (ICD-10 - Z88.6) 06/05/2024 Other Plan Of Treatment Medication Medication Name Sig Start Date Stop Date Notes ZYRTEC 10 mg 1 tab(s) orally once a day for 90 days Montelukast Sodium 10 MG 1 tablet Orally Once a day for 90 days NASAL WASHES N/A as directed intranas ally as needed Albuterol Sulfate HFA 108 (9 0 Base) MCG/ACT 2 puffs as needed Inhalation every 4 hrs for 30 days Treatment Notes Assessment Notes Moderate persistent asthma, uncomplicate d Devyn appears to have persistent asthma that flared secondary to Excedrin and influenza A requiring hospitalization 2. ACT 18 and normal spirometry. We discussed restarting Trelegy until Dupixent is approved, but he is not interested at this time. Continue Singulair and prn albuterol. Asthma action plan reviewed Chronic sinusitis, unspecified Currently following with Dr. Huston and receiving Dupixent through his office. No interval sinusitis Allergic rhinitis due to pollen Devyn cl early suffers from atopic disease based upon history and our skin testing. Accordingly, we have introduced a new, aggressive medication regimen, discussed nasal washes and allergy-specific avoidance measures. He is tolerating SCIT without large local or systemic symptoms. He was instructed to carry his epinephrine autoinjector for 2 hours after leaving the office. Allergy to other foods Devyn appears to have several food intolerance including gluten sensitivity and sulfites. Migraine without aura, not i ntractable, without status migrainosus improvement with low tyramine diet. Several of his problematic foods-- alcohol and sausage are high in tyramine. He was instructed to keep a food diary. Other allergic rhinitis Follow allergen avoidance, meds as above Next Appt Details Follow Up: 6 Months, Reason: Spirometry/Flow Volume Loop Progress Notes * Devyn ISRAEL CalvinDOB:1965 (58 yo M)Acc No.[id number]:06/05/2024 Asthma F/U Patient: Devyn CONNOLLY Provider: Calvin Dickinson MD :1965 A ge:58 Y S ex:Male Date:06/05/2024 Address:[address] [place] [address] , [id number] Pcp:Brooks Montero Subjective: * Chief Complaints: * C hronic sinusitis/ARC - off Dupixent and recent flaresAsthma follow-up - recent flares * HPI: * Introduction: I had the pleasure of seeing Crystal Israel, a 58 y ear old with anxiety disorder, migraines, NSAID allergy, food intolerances and asthma presenting for f/u evaluation of asthma. He was last evaluated 11-07-2024. Last week, he developed local reactions with immunotherapy. Asthma has been flaring since stopping Dupixent February 2024. He is working on insurance approval with Dupixent. At this time he does not want to start a daily inhaler. He discontinued Trelegy after starting Dupixent because no flares of asthma and developing thrush with Trelegy. He continues Singulair. He is currently receiving Dupixent through Dr. Huston's office for nasal polyps and improvement in congestion and rhinorhea. Sinus surgery was performed Summer 2019. Devyn is also following with bomb technician, Dr. Myers and history of blood in sputum. He quit smoking in 1997. He was hospitalized at [facility] for asthma exacerated by NSAIDs. While admitted in the hospital, he reported a reaction to gluten. He currently is following a gluten free diet and avoids certain forms of alcohol. He can eat small amounts of food containing gluten, but if eats large amounts develops nasal congestion and headaches. When he ate gluten containing food in the hospital, he developed flushing, headache shortness of breath, and coughing. When I evaluated Devyn in 2017, he appeared to have a sensitivity to tyramine and sulfites which caused migraines. He previously followed with neurology PA at [facility], [place] 04/2016. . Today, he reports no fevers, chills, night sweats or other constitutional symptoms. * ROS: A LLERGY: Positive p er the HPI and history, otherwise unremarkable.? S PECIAL SENSES: Positve for n one. C ONSTITUTIONAL: Positive for n one. E NT: Positive p er the HPI and history, otherwise unremarkable.? R ESPIRATORY: Positive p er the HPI and history, otherwise unremakable.? O PHTHALMOLOGY: Positive for p er the HPI and history, otherwise unremarkable. E NDOCRINOLOGY: Positive for n one. C ARDIOLOGY: Positive for n one. G ASTROENTEROLOGY: Positive for n one. U ROLOGY: Positive for n one. D ERMATOLOGY: Positive for p er the HPI and history, otherwise unremakable. N EUROLOGY: Positive for n one. H EMATOLOGY/LYMPH: Positive for n one. M USCULOSKELETAL: Positive for n one. P SYCHOLOGY: Positive for n one. A ll other review of systems per the HPI and history, otherwise unremarkable. * Medical History: * Surgical History: t endon repair-- thumb 1987cholecystectomy sinus surgery deviated septum repair * Hospitalization/Major Diagno stic Procedure: D enies Past Hospitalization * Family History: F ather: , Yes. M other: alive. S iblings: Yes. C hildren: Yes. Mother with migraine history. * Social History: M arital Status What is your marital status? p artner A lcohol Screening Do you ever drink alcoholic beverages? Y es Number of drinks per occasion: 2 Frequency? M onthly S moking Have you ever smoked tobacco: f ormer smoker How old were you when you started smoking? 1 5 How old were you when you quit smoking? 3 3 How many cigarettes a day did you smoke? 1 1 to 20 Are you a : f ortalisha smoker S moking Smart Form Are you a: n ever smoker R ecreational drug use Have you ever used recreational drugs? N o D etails on consumption of certain products? Do you regularly consume products with aspartame; Equal or NutraSweet? N o Do you regularly consume products with artificial coloring??No Have you ever noticed worsening of your rash with these food items? N o E xercise What kind(s) of exercise do you perform regularly? w eight training,cardio How often do you perform this exercise? e very other day A re any of the following personal care products containing fragrance, dye or preservatives used regularly? Shampoo: Y es Conditioner: N o Soap: Y es Laundry Detergent: Y es Fabric Softener: Y es Deodorant: Y es Perfume, cologne, after shave: Y es Air freshners or other scented products: Y es Hair coloring dyes or rinses: N o Other: N o O ccupation Are you currenly employed? Y es Employment status? 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 number of years?28 Do you believe that your current or previous occupation has any bearing on your illness? Y es Please describe the effect of your illness on your job p oor concentration,decreased enjoyment,loss of work Do you have any pending or planned legal action against your current or former employer which pertains to your medical illness? N o Do you anticipate that your evaluation will be used in any legal action against your current employer or former employer? N o Have you ever worked in any of the following: f [employer] Have you had any job with high exposure to fumes, chemicals, dust or other noxious substances? Y es Are you currently a student? N o E nvironmental History Living environment: p rivate home Where is the home located? [place] Age of home: 1 967 How long have you lived there? 5 years or more How many people live in the home? 3 H ome description Basement: Y es Any water damage in basement? N o Smokers in the home? N o Smokers outside the home? N o Air Conditioning? Y es Central Air? Y es Forced air heating? Y es Gas or electric? g as Fireplace? N o Wood burning stove? N o Do you vacuum the home? Y es Air purification systems? N o Pillow and mattress dust-proof encasings? N o Do you use a humidifier? Y es Whole house or room? w hole house humidifier Does it have a humidistat? Y es Is it used year-round, seasonal, or as needed? s easonal Is the humidifier cleaned regularly? Y es Do you own any pets? Y es What kind(s)? (click all that apply) d og,fish Where do your pets sleep? a nywhere in the house Fabric softeners used? Y es Plants in the home? Y es How many? 6 Where are they kept? o ther room in home Is there carpeting in your bedroom? N o Do you have fggv-mt-zvkh carpeting? N o What is the age of your mattress (years)? 1 0 What material(s) are used to manufacture your bedding and pillow? s ynthetic What is the age of your pillow (years)? 3 What material are your bedding items made of? n atural fiber (e.g. cotton) Do you sleep with quilts or blankets or a duvet? Y es What material? s ynthetic,natural fiber (e.g. cotton) How many dogs? 1 How many birds? 0 How many fish? 1 0 T obacco Control (Standard) Tobacco use: N onsmoker * Medications: T akingZyrTEC Allergy 10 MG Tablet 1 tab(s) orally [...] *Please review and pick correct strength-formulation from Hardscore Gamesspan options. If intended option is not shown, discontinue and re-order from Quick Search*ZOLMitriptan 5 MG Tablet 1 tab(s) orally once a day , Notes to Pharmacist: uses prnAuvi-Q 0.3 MG/0.3ML Solution Auto-injector as directed intramuscularly once NASAL WASHES N/A 1 quart of sterilized tap water or distilled water, 1 tsp NaCl, 1 pinch of baking soda as directed intranasally as needed Albuterol Sulfate HFA 108 (90 Base) MCG/ACT Aerosol Solution 2 puffs as needed Inhalation every 4 hrs Montelukast Sodium 10 MG Tablet 1 tablet Orally Once a day SIT (TRADITIONAL) variable see record per schedule SC per schedule Taking ZyrTEC Allergy 10 MG Tablet 1 [...] *Please review and pick correct strength-formulation from Alai options. If intended option is not shown, discontinue and re-order from Quick Search*Taking ZOLMitriptan 5 MG Tablet 1 tab(s) orally once a day , Notes to Pharmacist: uses prnTaking Auvi-Q 0.3 MG/0.3ML Solution Auto-injector as directed intramuscularly once Taking NASAL WASHES N/A 1 quart of sterilized tap water or distilled water, 1 tsp NaCl, 1 pinch of baking soda as directed intranasally as needed Taking Albuterol Sulfate HFA 108 (90 Base) MCG/ACT Aerosol Solution 2 puffs as needed Inhalation every 4 hrs Taking Montelukast Sodium 10 MG Tablet 1 tablet Orally Once a day Taking SIT (TRADITIONAL) variable see record per [...] day ALBUTEROL (EQV-PROAIR HFA) 90 MCG/INH AEROSOL INHALE 2 PUFFS BY MOUTH EVERY 4 TO 6 HOURS NEEDED AND PER THE ASTHMA ACTION PLAN , Notes to Pharmacist: *Please review for potential replacement for e-prescription and drug interaction check*ZYRTEC 10 mg tablet 1 tab(s) orally once a day Medication List reviewed and reconciled with the patientNot-Taking/PRN Xyzal Allergy 24HR 5 MG Tablet 1 [...] replacement for e-prescription and drug interaction check*Not-Taking/PRN ZYRTEC 10 mg tablet 1 tab(s) orally once a day Medication List reviewed and reconciled with the patient * Allergies: I buprofen: shortness of breathno[Allergies Verified] Objective: * Vitals: B P:138/83mm Hg, HR:80/min, Pulse Oximetry:97%, ACT:18, Ht: 66 in, Wt: 171 lbs, BMI:27.6Index. * Examination: G eneral examination: General appearance: p leasant, well-developed, well-nourished. HEENT: c onjunctiva are clear bilaterally, no tenderness to palpation of the sinuses, TM's without evidence of acute infection, turbinates erythematous and dry mucosa bilaterally, no visible polyps, no septal perforation, posterior oropharynx is clear,no exudates, no tongue swelling, and uvula is midline. Oral cavity: n ormal, no lesions. Neck, thyroid : s upple, non-tender, no anterior cervical lymphadenopathy. Breasts : n ot performed. Heart: R RR, S1-S2, no murmurs, no rubs, no gallops. Lungs: c lear to auscultation and percussion in all lung jaimes, no wheezes or crackles. Neurologic exam: u nremarkable. Skin: n ormal, no rash, dermatographism, urticaria, angioedema. Peripheral pulses: n ormal (2+) bilaterally. Back: n ormal. Extremities: n ormal ROM, no clubbing, no cyanosis, no edema. Genitalia: n ot performed. Assessment: * Assessment: 1. M oderate persistent asthma, uncomplicated - J45.40 (Primary) 2 . C hronic sinusitis, unspecified - J32.9 3 . A llergic rhinitis due to pollen - J30.1? 4. A llergy to other foods - Z91.018 5 . M igraine without aura, not intractable, without status migrainosus - G43.009 6 . A llergic rhinitis due to animal (cat) (dog) hair and dander - J30.81 7 . O ther allergic rhinitis - J30.89 8 . O ther chronic allergic conjunctivitis - H10.45 9 . A llergy status to analgesic agent status - Z88.6 Plan: * Treatment: Value Reference Range S piroPreBronchodilator_FVC 3.71 * S piroPreBronchodilator_FEF25_75 3.59 * S piroPreBronchodilator_FEV1 3.03 * S piroPrecentPredictionPre_FEF25_75 108.5 * S piroPrecentPredictionPre_FEV1 91.5 * S piroPrecentPredictionPre_FEV1_OVER_FVC 102.3 * S piroPrecentPredictionPre_FVC 89.4 * S piroPredicted_FEF25_75 3.31 * S piroPreBronchodilator_FEV1_OVER_FVC 81.59 * S piroPreBronchodilator_PEF 4.62 * S piroPredicted_FVC 4.15 * S piroPredicted_FEV1 3.31 * S piroPredicted_FEV1_OVER_FVC 79.73 * S piroPredicted_PEF 7.7 * FEV1 and FVC within normal l imits. Normal FVL. Impression: normal spirometry Notes: Devyn appears to have persistent asthma that flared secondary to Excedrin and influenza A requiring hospitalization . ACT 18 and normal spirometry. We discussed restarting Trelegy until Dupixent is approved, but he is not interested at this time. Continue Singulair and prn albuterol. Asthma action plan reviewed??2.?Chronic sinusitis, unspecified? Notes: Currently following with Dr. Huston and receiving Dupixent through his office. No interval sinusitis??3.?Allergic rhinitis due to pollen? Refill ZYRTEC tablet, 10 mg, 1 tab(s), orally, once a day, 90 days, 90 Tablet, Refills 2;?Continue NASAL WASHES 1 quart of sterilized tap water or distilled water, 1 tsp NaCl, 1 pinch of baking soda, N/A, as directed, intranasally, as needed.?? Notes: Devyn clearly suffers from atopic disease based upon history and our skin testing. Accordingly, we have introduced a new, aggressive medication regimen, discussed nasal washes and allergy-specific avoidance measures. He is tolerating SCIT without large local or systemic symptoms. He was instructed to carry his epinephrine autoinjector for 2 hours after leaving the office.??4.?Allergy to other foods? Notes:Devyn appears to have several food intolerance including gluten sensitivity and sulfites. ?5.?Migraine without aura, not intractable, without status migrainosus? Notes:improvement with low tyramine diet. Several of his problematic foods-- alcohol and sausage are high in tyramine. He was instructed to keep a food diary. ??6.?Other allergic rhinitis? Notes:Follow allergen avoidance, meds as above?? * Procedure Codes: 9 6160 [facility]OCUSED [facility] RISK [id number] DOC MEDS VERIFIED W/PT OR [id number] RESPIRATORY FLOW VOLUME LOOP * Preventive Medicine: Counseling: D iet a s tolerated. E xercise C ontinue activity as usual. M edication instruction: W atch for side effects of prescribed medications, Nasal steroid/antihistamine instruction: avoid septum. E ducation: O ur staff spent an additional 30 minutes in direct contact with the patient educating them on their current diagnoses and proper treatment and prevention of symptoms and the proper use of medications. E ducation 2: O ur staff discussed the appropriate allergen avoidance measures and medication utilization including upper airway hygiene with daily nasal washes given the patient's clinical status and diagnoses. P atient education material sent to portal? Y es B P Management: PRE-HYPERTENSIVE FOLLOW-UP PLAN: P atient follow-up planned and scheduled REFERRAL TO ALTERNATIVE / PRIMARY CARE PROVIDER: Phu castro to general practitioner * Follow Up: 6 Months (Reason: Spirometry/Flow Volume Loop) * Billing Information: * Visit Code: 51319 Office Visit, Est Pt., Level 4. Modifiers: 25 * Procedure Codes: 60916 PT-FOCUSED [facility] RISK ASSMT. G8427 DOC MEDS VERIFIED W/PT OR RE. A4617 Mouthpiece. 50114 RESPIRATORY FLOW VOLUME LOOP. * NING DEVELOPER Sign off status: Completed true * Provider: Calvin Dickinson MD Date: 06/05/2024 Generated for Tristen bass/Lucretia/eTransmitting on: 0 07/24/2024 12:05 AM CDT History and Physical Notes * HPI (History of Present Illness) Category Sub-Category Detail Notes Category Not es *Introduction I had the pleasure o f seeing Devyn Israel, a 58 year old with anxiety disorder, migraines, NSAID allergy, food intolerances and asthma presenting for f/u evaluation of asthma. He was last evaluated 11-07-2024. Last week, he developed local reactions with immunotherapy. Asthma has been flaring since stopping Dupixent February 2024. He is working on insurance approval with Dupixent. At this time he does not want to start a daily inhaler. He discontinued Trelegy after starting Dupixent because no flares of asthma and developing thrush with Trelegy. He continues Singulair. He is currently receiving Dupixent through Dr. Huston's office for nasal polyps and improvement in congestion and rhinorhea. Sinus surgery was performed Summer 2019. Devyn is also following with bomb technician, Dr. Myers and history of blood in sputum. He quit smoking in 1997. He was hospitalized at [facility] for asthma exacerated by NSAIDs. While admitted in the hospital, he reported a reaction to gluten. He currently is following a gluten free diet and avoids certain forms of alcohol. He can eat small amounts of food containing gluten, but if eats large amounts develops nasal congestion and headaches. When he ate gluten containing food in the hospital, he developed flushing, headache shortness of breath, and coughing. When I evaluated Devyn in 2017, he appeared to have a sensitivity to tyramine and sulfites which caused migraines. He previously followed with neurology PA at [facility], [place] 04/2016. . Today, he reports no fevers, chills, night sweats or other constitutional symptoms Examination Category Sub-Category Detail Notes Category Not es General examination HEENT: conjunctiva are clear bilaterally, no tenderness to palpation of the sinuses, TM's without evidence of acute infection, turbinates erythematous and dry mucosa bilaterally, no visible polyps, no septal perforation, posterior oropharynx is clear,no exudates, no tongue swelling, and uvula is midline Neck, thyroid : supple, non-tender, no anterior cervical lymphadenopathy Heart: RRR, S1-S2, no murmu rs, no rubs, no gallops Lungs: clear to auscultatio n and percussion in all lung jaimes, no wheezes or crackles Abdomen: Extremities: normal ROM, no clubb ing, no cyanosis, no edema General appearance: pleasant, well-devel oped, well-nourished Skin: normal, no rash, iram matographism, urticaria, angioedema Neurologic exam: unremarkable Oral cavity: normal, no lesions Breasts : not performed Peripheral pulses: normal (2+) bilatera lly Back: normal Genitalia: not performed
--- OUTSIDE RECORDS SUMMARY | 2024-07-24 00:06 | XMS_ITS | Encounter Summary ---
Author Organization [facility] Address [address] [place] [address] Care Team Providers Care Rodeo Rider Name Role Phone Bora Meléndez MD Primary Care Provider Encounter Details Date Type Department Care Team (Late st Contact Info) Description 01/13/2020 Prep for Procedure [facility] Pre-Admission Testing [facility] [address] [place], [place] [phone] Washington Gamboa MD [address] [place] [id number] Social History Tobacco Use Types Packs/Day Years Used Date Smoking Tobacco: Never Smokeless Tobacco: Never Alcohol Use Standard Drinks/Week Comments Not Currently 0 (1 standard drink = 0.6 oz pur e alcohol) social PHQ-2 Answer Date Recorded PHQ-2 Score 1 01/09/2020 Sex and Gender Information Value Date Recorded Sex Assigned at Not on file 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 Due to the current public health emergency, [employer] is receiving a high volume of samples [...] about COVID-19 can be found at the [employer] website: www.Pairin.Snaptiva/Covid19. Test performed at [email or web address] [address] [place] [address] Director: MYRON FAJARDO DO,MPH FIRST TEST NO 01/14/2020 10:30 AM CDT [facility] EMPLOYED IN HEALTHCARE NO 01/14/2020 10:30 AM CDT [facility] SYMPTOMATIC DEFINED BY CDC NO 01/14/2020 10:30 AM CDT [facility] DATE OF SYMPTOM ONSET =FASTING UNKNOWN 01/14/2020 10:58 AM CDT [facility] HOSPITALIZATION STATUS NO 01/14/2020 10:30 AM CDT [facility] PATIENT IN ICU NO 01/14/2020 10:30 AM CDT [facility] RESIDENT OF [facility] NO 01/14/2020 10:30 AM CDT [facility] NOT 01/14/2020 10:58 AM CDT [facility] PATIENT'S RACE WHITE OR 01/14/2020 10:30 AM CDT [facility] ETHNICITY NONHISPANIC 01/14/2020 10:30 AM CDT [facility] SOURCE (QST) NASOPHARYNGEAL SWAB 01/14/2020 10:30 AM CDT [facility] NASOPHARYNGEAL SWAB / Unknown 01/14/2020 9:55 AM CDT us Washington Gamboa MD MICROBIOLOGY - GENERAL ORDERABL ES Final Result Performing Organization Address City/State/[facility] Co de Phone Number [facility] [address] [place] [address], [email or web address] [address] documented in this encounter Visit Diagnoses Diagnosis Pre-op exam- Primary Preoperative examination, unspecified documented in this encounter Additional Health Concerns Infection Onset Date Last Indicated Resolved Time COVID-19 Rule Out 01/14/2020 01/14/2020 01/15/2020 4:56 PM CDT documented as of this encounter Care Teams Rodeo Rider Relationship Specialty Start Date End Date Bora Meléndez MD [address] [address] PCP - General INTERNAL MEDICINE 09/11/19 documented as of this encounter
--- OUTSIDE RECORDS SUMMARY | 2024-07-24 00:06 | XMS_ITS ---
Author Organization [facility] Address [address] [place] [address] Care Team Providers Care Strategic Accounts Manager Name Role Phone Brooks Montero Primary Care Provider Tai tijerina Adalgisa Dickinson Unavailable [phone] REASON FOR VISIT SCIT - Traditional Schedule [...] Not-Taking Encounters Encounter Location Date Provider Diagnosis [facility] [address] [facility] [address] [place] [phone] 06/18/2024 Adalgisa Dickinson Allergic rhinitis du e [...] Week, Reason: Progress Notes * Devyn ISRAELB:1965 (58 yo M)Acc No.[id number]:06/18/2024 SCIT-Aeroallergen Patient: Crystal PARDO Devyn Simpson Provider: Calvin Dickinson MD :1965 A ge:58 Y S ex:Male Date:06/18/2024 Address:[facility] [address] [place], [id number] Pcp:Brooks Montero Subjective: * Chief Complaints: * [...] *Please review and pick correct strength-formulation from [employer] options. If intended option is [...] *Please review and pick correct strength-formulation from [employer] options. If intended option is not shown, [...] Information: * Visit Code: * Procedure Codes: 31455 IMMUNOTHERAPY INJECTIONS. * INE OPERATOR CANE CUTTER Sign off status: Completed true * Provider: Calvin Dickinson MD Date: 0 06/18/2024 Generated for Tristen bass/Lucretia/Eric on: 0 07/24/2024 12:06 AM CDT History and Physical Notes * [...]
--- NOTE | 2024-07-24 07:17 | WPDHPUPDATE1 ---
History and Physical Update Update Date/Time: 07/24/24 07:17 History and Physical has been reviewed, including an updated exam of the patient. There are NO changes in the patient's condition. Risks, benefits, and alternatives have been discussed and questions answered. Patient agrees to proceed with procedure.
--- NOTE | 2024-07-24 07:18 | WPDHPUPDATE1 ---
History and Physical Update Update Date/Time: 07/24/24 07:18 History and Physical has been reviewed, including an updated exam of the patient. There are NO changes in the patient's condition. Risks, benefits, and alternatives have been discussed and questions answered. Patient agrees to proceed with procedure.
[2024-07-24] MEDS: LACTATED RINGERS 1,000 ML 30 ML IV CONT ×2 (08:45→12:33)
--- NOTE | 2024-07-24 09:05 | WPDANESEPPF ---
Anes - Initial Pre Proc Eval Procedure: Operation Date: 07/24/24 10:30 Proposed Procedures p Left Shoulder Rotator Cuff Repair - Rajendra Richard MD Date/Time: 07/24/24 09:05 Surgeon: Rajendra Richard MD Pre Op Diagnosis: left shoulder rotator cuff tear Patient Data Age: 59 Gender: M Height: 1.68 m Weight: 68.2 kg Allergies Allergy/AdvReac Type Severity Reaction Status Date / Time grass pollen Allergy Swelling Verified 07/24/24 08:23 in throat ibuprofen Allergy swelling Verified 07/24/24 08:23 in throat wheat Allergy swelling Verified 07/24/24 08:23 in throat Home Medications ?Medication ?Instructions ?Recorded ?Confirmed ?Type montelukast 10 mg tablet 10 mg PO DAILY 08/16/21 07/16/24 History (Singulair) dupilumab 300 mg/2 mL subcutaneous 300 mg subcut .[id number] 05/18/23 07/16/24 History pen injector (Dupixent) testosterone cypionate 100 mg/mL 32 mg IM WEEKLY 05/18/23 07/16/24 History intramuscular oil valacyclovir 1 gram tablet 2,000 mg PO Q12H PRN sores 07/18/23 07/16/24 History (Valtrex) zolmitriptan 5 mg disintegrating See Rx Instructions PO .COMPLEX 01/19/24 07/16/24 Rx tablet PRN migraine headache #9 tabs cetirizine 10 mg capsule (All Day 10 mg PO DAILY PRN allergy symptoms 06/27/24 07/16/24 History Allergy (cetirizine)) acetaminophen 300 mg-codeine 30 mg 1 tablet PO Q12H PRN pain #20 tabs 07/02/24 07/16/24 Rx tablet benzoyl peroxide 5 % topical gel 1 applic topical DAILY #42.5 grams 07/05/24 07/16/24 Rx chlorhexidine gluconate 4 % 1 applic topical ONCE #237 mL 07/05/24 07/16/24 Rx topical liquid (Hibiclens) clindamycin phosphate 1 % topical 1 applic topical DAILY #30 grams 07/05/24 07/16/24 Rx gel dronabinol 10 mg capsule 10 mg PO DAILY PRN nausea and 07/08/24 07/16/24 Rx vomiting #20 caps Patient hx anesthesia problems: none Family hx anesthesia problems: none Results Review: All pre-operative results and documents have been reviewed as part of the pre-operative evaluation. [facility] Past Medical History Medical History Rotator cuff tear Trigger point of left shoulder region Rotator cuff tendonitis Hypertriglyceridemia Left shoulder pain Sinusitis Onychomycosis Colon cancer screening Encounter for monitoring testosterone replacement therapy Gynecomastia Cholecystectomy planned 2018 Umbilical hernia 2016 surgery Broken finger Headache Arthritis Asthma Allergies Surgical History Surgical History History of cholecystectomy H/O sinus surgery X3 S/P tendon repair 01/2020 Right arm PIN AND CABLE ATTACHMENT ON TENDON Family History Family History Father No problems noted. Mother Cerebrovascular accident Carcinoma of colon Uterine cancer Lymph node cancer Social History Social History Social History: Caffeine-occasionally Smoking status: Former smoker Tobacco type: cigarettes Smoking end date: 01/12/98 Alcohol intake: current Alcohol use details: Rarely Substance use: former Substance use type: does not use Other substance usage details: MMJ Living arrangements: alone Spiritual care concerns: No Anes - Eval Final PreProcedure Day of Procedure 07/24/24 09:05 Patient weight: normal Heart: regular rate and rhythm Lungs: clear to auscultation Airway: Mallampati scale class II Neurological: alert and oriented Last oral intake: >/= 8 hours ASA classification: III Emergent: no Anesthetic plan: proceed Anesthesia type and monitoring: general ETT and standard monitoring Results Review: All pre-operative results and documents have been reviewed as part of the pre-operative evaluation. Informed Consent: The patient's anesthetic plan and its attendant risks and benefits were discussed with the patient/family/POA. Questions were solicited and answers provided to the satisfaction of the patient/family/POA.
[2024-07-24] MEDS: ACETAMINOPHEN 500 MG TABLET 1000 MG PO (09:10)
[2024-07-24] MEDS: ceFAZolin 2 GM/D5W 50 ML 2 GM/50 ML BAG IVPB (10:09)
--- NOTE | 2024-07-24 10:13 | WPDANESPNB ---
Anes - Peripheral Nerve Block Date/Time: 07/24/24 10:13 I have discussed with the patient/family/POA the placement of a peripheral nerve block for post-operative pain management, including associated risks, benefits, complications, and side effects. Alternative methods of post-operative analgesia were detailed. Questions were solicited and answers provided to the satisfaction of the patient/family/POA. Time-Out: A pre-procedural Time-Out was completed immediately before starting the procedure and confirmed: Patient Identification, Site, Procedure, Patient Position and the Availability of Requisite Equipment. Clinical Indications: Acute post-operative pain management requested by the operative surgeon. Nerve Block Insertion Note Anes-nerve block: interscalene left Patient position: supine Skin prep: chlorhexidine Needle: 22 gauge, stimulating, insulated echogenic needle. Needle length: 50 mm Technique: nerve stimulation lost at (mA) and ultrasound Technique comment: MID2MG [id number] Injectate: bupivacaine 0.5% with epi 5 mcg/ml (30ml NO EPI) and dexamethasone (mg) (4) Observations: tolerated well Complications: none Procedure start time:: 1000 Procedure end time:: 1006
--- NOTE | 2024-07-24 11:35 | P.OP_ITS ---
Procedure Note - Detailed Date of Procedure 07/24/24 Pre-op Diagnosis left shoulder rotator cuff tear Post-op Diagnosis Same Procedure Performed REPAIR RIGHT ROTATOR CUFF Surgeon Rajendra Richard MD Anesthesia General Description of Procedure THE PATIENT WAS TAKEN TO THE OPERATING ROOM AND THEN INTUBATED AND PLACED IN THE BEACH CHAIR POSITION. THE RIGHT UPPER EXTREMITY WAS PREPPED AND DRAPED IN THE NORMAL STERILE FASHION. AN INCISION WAS MADE IN BETWEEN THE DEANGELO-LATERAL ACROMION AND THE AC JOINT. THE FASCIA WAS IDENTIFIED. NEXT A MINI OPEN INCISION WAS MADE THROUGH THE DELTOID MUSCLE EXPOSING THE SUBACROMIAL SPACE. A LIMITED ACROMIOPLASTY WAS PREFORMED. THE ROTATOR CUFF WAS IDENTIFIED. THERE WAS A FULL THICKNESS TEAR. IT MEASURED APPROXIMATELY3 CM X 2 CM. THE BICEPS TENDON WAS INTACT. THE GREATER TUBEROSITY WAS DEBRIDED TO BLEEDING BONE. 3 ARTHREX 5.5 SUTURE ANCHORS WERE PLACED IN TO GOOD BONE AND HAD VERY GOOD BITES. SHERRY-ALEX TYPE REPAIRS WERE DONE TO THE ROTATOR CUFF AND THERE WAS GOOD APPROXIMATION TO THE GREATER TUBEROSITY. THE REPAIR WAS EXCELLENT. THERE WAS NO IMPINGEMENT ON THE REPAIR FROM THE ACROMION WITH RANGE OF MOTION. THE WOUND WAS IRRIGATED WITH COPIOUS AMOUNTS OF ANTIBIOTIC SOLUTION. THE DELTOID MUSCLE WAS REPAIRED WITH #2 FIBER WIRE AND 0 VICRYL SUTURE. THE SUBCUTANEOUS LAYER WAS APPROXIMATED WITH 2- 0 VICRYL. THE SKIN WAS APPROXIMATED WITH 3-0 QUIL AND DERMABOND. STERILE DRESSING WAS APPLIED. PATIENT WAS EXTUBATED. Estimated Blood Loss 20 Complications No immediate complications Condition Stable Disposition PACU
[2024-07-24] MEDS: fentaNYL CITRATE INJ (*CRX) 100 MCG/2 ML VIAL 25 MCG IV PUSH (12:23)
[2024-07-24] MEDS: oxyCODONE HCL (*CRX) 5 MG TAB IR PO (12:49)
== END 2024-07-24 13:50 | disposition home or self-care (01) ==
PROVIDERS: PCP Internal Medicine; Visit Provider Orthopaedic Surgery
PROC: (CPT 23420; principal; 2024-07-24 10:30)
DX: M75.122 Complete rotator cuff tear or rupture of left shoulder, not specified as traumatic (principal); G89.18 Other acute postprocedural pain; X50.1XXA Overexertion from prolonged static or awkward postures, initial encounter; E78.1 Pure hyperglyceridemia; J45.909 Unspecified asthma, uncomplicated; M19.90 Unspecified osteoarthritis, unspecified site; Z79.85 Long-term (current) use of injectable non-insulin antidiabetic drugs; Z98.890 Other specified postprocedural states; Z90.49 Acquired absence of other specified parts of digestive tract; Z87.891 Personal history of nicotine dependence; Z80.0 Family history of malignant neoplasm of digestive organs; Z80.7 Family history of other malignant neoplasms of lymphoid, hematopoietic and related tissues; Z80.49 Family history of malignant neoplasm of other genital organs; Z82.49 Family history of ischemic heart disease and other diseases of the circulatory system
CPT/HCPCS: 64415; 23412; A9270; C1713; J0690; J1100; J1938; J2250; J2371; J2405; J2704; J3010; J7120

== ENCOUNTER 2024-11-01 10:51 | Outpatient (CLI) | payer OTHER, SELFPAY ==
--- OUTSIDE RECORDS SUMMARY | 2024-11-01 10:55 | XMS_ITS | Clinical Summary ---
Author Organization [facility] Address [address] [place] [address] Care Team Providers Care Fur Stretcher Name Role Phone Bora Meléndez MD Primary [...] Date Diagnosed Date Severe asthma with exacerbation ([facility]) 2019 Allergic rhinitis 07/11/2019 Overview (09/11/2019): Last Assessment & Plan: Continue with Flonase. 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 Gender Identity Not on file Sexual Orientation Not on file Last Filed Vital Signs Vital Sign Reading Time Taken Comments Blood Pressure 130/90 03/19/2020 2:03 PM CURRICULUM AND INSTRUCTION DIRECTOR Pulse 83 03/19/2020 2:03 PM CURRICULUM AND INSTRUCTION DIRECTOR Temperature 36.7 C (98.1 F) 03/19/2020 2:03 PM CURRICULUM AND INSTRUCTION DIRECTOR Respiratory Rate 16 01/17/2020 1:10 PM CDT Oxygen Saturation 97% 02/06/2020 3:51 PM CDT Inhaled Oxygen Concentration - - Weight 60.6 kg (133 lb 9.6 oz) 03/19/2020 2:03 P M CURRICULUM AND INSTRUCTION DIRECTOR Height 167.6 cm (5' 6) 03/19/2020 2:03 PM CURRICULUM AND INSTRUCTION DIRECTOR Body Mass Index 21.56 03/19/2020 2:03 PM CURRICULUM AND INSTRUCTION DIRECTOR Plan of Treatment Health Maintenance Due Date Last Done Comments Colorectal Cancer Screening Colonoscopy (10 Years) 1965 Annual Physical 07/21/1967 Hepatitis C 1982 Pneumococcal Vaccine: 50+ Years (2 of 2 - PCV) 05/01/1999 05/01/1998 Zoster Vaccines (1 of 2) 2014 COVID-19 Vaccine ( - 2023-2 5 season) 2023 RSV Immunization or 60+ Years (1 - Risk 60-74 years 1-dose series) 2024 DTaP, Tdap and Td Vaccines ( 2 [...] this topic Medical Devices Implanted Type Area [employer] Broker Device Identifier Shelf Expiration Date Model / Serial / Lot Dx Swivel Lock Implanted:Qty: 1 on 01/17/2020 by Washington Gamboa MD at [facility] Right: [employer] 07/14/2021 [id number] / / [id number] Insurance [employer] Care Teams Fur Stretcher Relationship Specialty Start Date End Date Bora Meléndez MD [address] [address] PCP - General INTERNAL MEDICINE 09/11/19
--- OUTSIDE RECORDS SUMMARY | 2024-11-01 10:56 | XMS_ITS | Referral Summary ---
Author Organization [facility] Medical Office Building B Address [address] [place] [address] Care Team Providers Care Protection Engineer Name Role Phone Bora Meléndez MD Unavailable Brooks Montero DO Primary Care Provider [phone]- [phone] Encounters Date Type Department Care Team Description 09/13/2024 Telephone [facility] Orthopedics and Sports Medicine [address] [facility] [address] [place] [address] Santos Ruiz MD Left shoulder from Last 3 Months Allergies Active Allergy Reactions Criticality Noted Date [...] (05/01/2020): Added automatically from request for surgery [id number] Personal history of colonic polyps 05/01/2020 Overview (05/01/2020): Added automatically from request for surgery [id number] Encounter for screening colonoscopy 05/01/2020 Overview (05/01/2020): Added automatically from request for surgery [id number] Moderate persistent asthma without complication 10/09/2019 Assessment & Plan (04/15/2020 7:59 PM DISH CARRIER): Continue with Wixela and use duo nebs twice a day before using Wixela. If symptoms remain uncontrolled I will add LAMA. Assessment & Plan (10/09/2019 4:28 PM CDT): Continue with wixela , duo nebs and p.r.n. albuterol inhaler. Will obtain methacholine challenge test once he is completely asymptomatic. Allergic rhinitis 07/11/2019 Assessment & Plan (04/15/2020 7:59 PM DISH CARRIER): CONTINUE WITH INTRANASAL CORTICOSTEROIDS. Assessment & Plan [...] REFLUX Assessment & Plan (04/15/2020 8:00 PM DISH CARRIER): Symptoms of GERD are controlled without pharmacotherapy. [...] on file Legal Sex Male 11:54 PM DISH CARRIER Gender Identity Not on file Sexual Orientation [...] 11:38 AM CDT Height 167.6 cm (5' 6) 01/21/2024 11:38 AM CDT Body Mass Index 24.21 01/21/2024 11:38 AM CDT Plan of Treatment Not on file Medical Devices Implanted Type Area Power Crane Operator Device Identifier Shelf Expiration Date Model / Serial / Lot Patch Surgical Ventralex Sepra Sorbaflex Polypropylene Eptfe Small [place] Od1.7 In Monofilament Self Expand Strap Pocket Sterile Umbilical Hernia Repair - [id number] Implanted:Qty: 1 on 04/13/2017 by Anjel Quinones MD at [facility] Mesh N/A: Umbilical [employer]/C R Bard 03/14/2020 [id number] / / [id number] [facility] SIGNATURE [facility] CMR Advance Directives For more information, please contact: [phone] * Full Code (Latest Code Status on File) Date Activated Date Inactivated Comments 05/30/2019 6:33 PM 06/04/2019 7:35 PM * Full Code Date Activated Date Inactivated Comments 11/14/2018 6:07 AM 11/15/2018 4:39 PM Care Teams Protection Engineer Relationship Specialty Start Date End Date Brooks Montero DO PCP - General Internal Medicine 08/16/22 Bora Meléndez MD 06/20/18
--- OUTSIDE RECORDS SUMMARY | 2024-11-01 10:56 | XMS_ITS ---
Author Organization [facility] [place] ([address]) Address [address] [place] [address] Care Team Providers Care Wood Cut Engraver Name Role Phone JvramosBrooks Primary Care Provider Unavailab Adalgisa Burrows Unavailable [phone] REASON FOR VISIT SCIT - Traditional Schedule Allergy immunotherapy Medications Medication SIG (Take, Route, Frequency, Duration) Notes Start Date End Date Status SIT (TRADITIONAL) variable per schedule SC per schedule; Duration: to be determined Active Encounters Encounter Location Date Provider Diagnosis [facility] [address] [facility] [place] [address] 07/16/2024 Adalgisa Dickinson Allergic rhinitis du e [...] 1 Week, Reason: Progress Notes * Devyn ISRAEL JDOB:1965 (59 yo M)Acc No.[id number]:07/16/2024 SCIT-Aeroallergen Patient: Devyn CONNOLLY Provider: Calvin Dickinson MD :1965 A ge:58 Y S ex:Male Date:07/16/2024 Address:[facility] [address] [facility] Pcp:Brooks Montero Subjective: * Chief [...] Information: * Visit Code: * Procedure Codes: 48885 IMMUNOTHERAPY INJECTIONS. * Electronic signature of Lottie Dickinson MD on 11/01/2024 at 10:55 AM CDT Sign off status: Pending * Provider: Calvin Dickinson MD Date: 0 07/16/2024 Generated for Micheali shelia/Lucretia/Jacobitting on: 0 11/01/2024 10:55 AM CDT History and Physical Notes * [...]
--- OUTSIDE RECORDS SUMMARY | 2024-11-01 10:56 | XMS_ITS | Encounter Summary ---
Author Organization [facility] Address [address] [facility] [place] [address] Care Team Providers Care Elastic Tape Inserter Name Role Phone Brooks Montero DO Primary Care Provider [phone] Encounter Details Date Type Department Care Team (Late st Contact Info) Description 05/16/2022 Lab Requisition [facility] [address] 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 Gender Identity Not on file Sexual Orientation Not on file documented as of this encounter Plan of Treatment Not on file documented as of this encounter Procedures Procedure Name Priority Date/Time Associated Diagnosis Comments DERMATOPATHOLOGY Routine 05/13/2022 12:0 0 AM PAINT TRIMMER PIPE BOWLS documented in this encounter Results * DERMATOPATHOLOGY (05/13/2022 12:00 AM PAINT TRIMMER PIPE BOWLS) Case Report Dermatopathology Report Case: [id number] Authorizing Provider: Jose Ramon Kurtz MD Collected: 05/13/2022 12:00 AM Ordering Location: [facility] Received: 05/16/2022 03:45 PM Pathologist: Marissa Samuels MD Specimen: Skin, right posterior shoulder 3:32 PM PAINT TRIMMER PIPE BOWLS DERMATOPATHOLOGY LABORATORY Final Diagnosis Specimen A. SKIN, right posterior shoulder: SEBORRHEIC KERATOSIS, RETICULATED (ADENOID) TYPE (L82.1) (see microscopic description) 3 3:[address] [facility] DERMATOPATHOLOGY LABORATORY at [address] [facility] Clinical History Lentigo vs MM Path#[id number] 3 3:[address] [facility] DERMATOPATHOLOGY LABORATORY Gross Description Specimen A: Received is one formalin filled container labeled with the patient's name and designated right posterior shoulder. The specimen consists of a shave biopsy measuring 5x4x1 mm. Jar 0. 3 3:[address] [facility] DERMATOPATHOLOGY LABORATORY Microscopic Description Specimen A. SKIN, right posterior shoulder: There is reticulated hyperplasia of the epidermis with overlying delicate hyperorthokeratosis . Hyperpigmentation is present in the basaloid cells. MART-1/Melan-A staining highlights regular periodicity of melanocytes along the dermoepidermal junction. Additional deeper sections were obtained and reviewed. 3 3:[address] [facility] DERMATOPATHOLOGY LABORATORY Disclaimer An external and internal positive and negative controls are appropriate for the histochemical, immunohistochemical and immunofluorescence stain(s) in this case (if any), except where stated explicitly. The performance characteristics of the stain(s) cited in this report were developed and its performance characteristic determined by the Dermatopathology Laboratory at [facility], directed by Dr. Carmelo Bar. These tests need not be, and therefore are not, approved by the [place] Food and Drug Administration. The tests are used for clinical purposes. Billing Codes Specimen Charges Stain Charges 17775 1 27000 1 3 3:[address] [facility] DERMATOPATHOLOGY LABORATORY Embedded Images 3 3:[address] [facility] DERMATOPATHOLOGY LABORATORY Pathology/Cytolog y TISSUE SPECIMEN FROM SKIN / Unknown 05/13/2022 05/16/2022 3:45 PM PAINT TRIMMER PIPE BOWLS us Jose Ramon Kurtz MD LAB - PATHOLOGY/CYTOLOGY ORDER DRU Final Result DERMATOPATHOLOGY LABORATORY [facility] - Department of Dermatology [facility] Medicine [address] [place] [address], [address] [phone] documented in this encounter Visit Diagnoses Not on filedocumented in this encounter Care Teams Elastic Tape Inserter Relationship Specialty Start Date End Date Brooks Montero DO PCP - General 11/12/21 documented as of this encounter
--- OUTSIDE RECORDS SUMMARY | 2024-11-01 10:56 | XMS_ITS | Patient Health Record ---
Author Organization [facility] [place] ([address]) Address [address] [place] [address] Care Team Providers Care Reinforced Steel Placing Supervisor Name Role Phone Brooks Montero Primary Care Provider UnavailAdalgisa Sam Unavailable [phone] Allergies Allergen (clinical drug ingredient) Drug/Non Drug [...] Duration) Notes Start Date End Date Status ZOLMitriptan 5 MG 1 tab(s) orally once a day uses prn Active Fluticasone Propionate (Inhal) 100 MCG/INH 1 PUFF(S) INHALED 2 TIMES A DAY; Duration: 30 DAY(S) uses once a day *Please review and pick correct strength-formula tion from [employer] options. If intended option is not shown, discontinue and re-order from Quick Search* Active SIT (TRADITIONAL) variable per schedule SC per schedule; Duration: to be determined Active Auvi-Q 0.3 MG/0.3ML as directed intramuscularly [...] for e-prescription and drug interaction check* Not-Taking ZYRTEC 10 mg 1 tab(s) orally once a day; Duration: 90 days Active Singulair 10 MG 1 tab(s) orally once a day; Duration: 90 days Not-Taking Montelukast Sodium 10 MG 1 tablet Orally Once a day; Duration: 90 days Active ALBUTEROL (EQV-PROAIR HFA) 90 MCG/INH INHALE 2 PUFFS BY MOUTH EVERY 4 TO 6 HOURS NEEDED AND PER THE ASTHMA ACTION PLAN; Duration: 30 *Please review for potential replacement for e-prescription and drug interaction check* Not-Taking Albuterol Sulfate HFA 108 (90 Base) MCG/ACT 2 puffs as needed Inhalation every 4 hrs; Duration: 30 days Active ZyrTEC Allergy 10 MG 1 tab(s) orally once a day; Duration: 90 days Not-Taking droNABinol 10 MG 1 cap(s) orally 2 times a day Active ZyrTEC Allergy 10 MG 1 tab(s) orally once a day; Duration: 90 days Active DUPIXENT PRE-FILLED PEN 300 MG/2 ML DIRECTED SUBCUTANEOUSLY EVERY 2 WEEKS *Please review for potential replacement for e-prescription and drug interaction check* Active Immunizations Vaccine Route Administration Date Status Comme nts Flucelvax Unknown 04/22/2019 Administered NOC Flucelevax Quadrivalent Unknown 03/11/2020 Refused Social History Tobacco Use: Social History Observation Description Date Details (start date - stop date) Never Smoker NA - NA Smoking Smart Form: Question Answer Notes Are you a: never smoker Tobacco Control (Standard) Question Answer Notes Tobacco use: Nonsmoker Problems Problem Type SNOMED Code ICD Code Onset Dates Problem Status W/U Status Risk Notes Problem Chronic migraine without aura, non-refractory (disorder) (189568252265230) Migraine without aura, not intractable, without status migrainosus (G43.009) Active confirmed Problem Refractory migraine (255294698) Migraine, unspecified, intractable, without status migrainosus (G43.919) Active confirmed Problem Chronic allergic conjunctivitis (42168876) Other chronic allergic conjunctivitis (H10.45) Active confirmed Problem Common cold (87176518) Acute nasopharyngitis [common cold] (J00) Active confirmed Problem Allergic rhinitis caused by pollen (disorder) (47085365) Allergic rhinitis due to pollen (J30.1) Active confirmed Problem Allergic rhinitis caused by animal hair and dander (501254105092463) Allergic rhinitis due to animal (cat) (dog) hair and dander (J30.81) Active confirmed Problem Allergic rhinitis (70252382) Other allergic rhinitis (J30.89) Active confirmed Problem Chronic sinusitis (75499156) Chronic sinusitis, unspecified (J32.9) Active confirmed Problem Uncomplicated moderate persistent asthma (228262270) Moderate persistent asthma, uncomplicated (J45.40) Active confirmed Problem 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) (5797410557598545 8) Allergy status to analgesic agent status (Z88.6) Active confirmed Problem Allergic rhinitis caused by pollen (disorder) (06498442) Allergic rhinitis due to pollen (J30.1) Active confirmed Problem Allergic rhinitis caused by animal hair and dander (863838238049616) Allergic rhinitis due to animal (cat) (dog) hair and dander (J30.81) Active confirmed Problem Allergic rhinitis (67560645) Other allergic rhinitis (J30.89) Active confirmed Problem Exacerbation of moderate persistent asthma (disorder) (859864211) Moderate persistent asthma with (acute) exacerbation (J45.41) Active confirmed Problem Chronic allergic conjunctivitis (06402207) Other chronic allergic conjunctivitis (H10.45) Active confirmed Problem Food allergy (193690413) Allergy to other foods (Z91.018) Active confirmed Problem Adverse effect o f aspirin, initial encounter (T39.015A) Active confirmed Vital Signs Oximetry 97 % 06/05/2024 Blood pressure diastolic 83 mm Hg 06/05/2024 Height 66 in 06/05/2024 Blood pressure systolic 138 mm Hg 06/05/2024 Weight 171 lbs 06/05/2024 BMI 27.6 kg/m2 06/05/2024 Encounters Encounter Location Date Provider Diagnosis [facility] [address] [facility] [address] [place] [address] 11/02/2023 Adalgisa Dickinson Allergic rhinitis du e to pollen J30.1 ; Allergic rhinitis due to animal (cat) (dog) hair and dander J30.81 ; Other allergic rhinitis J30.89 and Other chronic allergic conjunctivitis H10.45 [facility] [address] [place] [address] [employer] [address] [address] 11/08/2023 Adalgisa Dickinson Moderate persistent asthma, uncomplicated [...] Allergy status to analgesic agent status Z88.6 [facility] [address] [place] [address] [employer] [address] [address] 11/30/2023 Adalgisa Dickinson Allergic rhinitis du e to pollen J30.1 ; Allergic rhinitis due to animal (cat) (dog) hair and dander J30.81 ; Other allergic rhinitis J30.89 and Other chronic allergic conjunctivitis H10.45 [facility] [address] [place] [address] [employer] [address] [address] 12/28/2023 Adalgisa Dickinson Allergic rhinitis du e to pollen J30.1 ; Allergic rhinitis due to animal (cat) (dog) hair and dander J30.81 ; Other allergic rhinitis J30.89 and Other chronic allergic conjunctivitis H10.45 [facility] [address] [place] [address] [employer] [address] [address] 01/25/2024 Adalgisa Dickinson Allergic rhinitis du e to pollen J30.1 ; Allergic rhinitis due to animal (cat) (dog) hair and dander J30.81 ; Other allergic rhinitis J30.89 and Other chronic allergic conjunctivitis H10.45 [facility] [address] [place], [place] [address] [address] [address] 02/22/2024 Adalgisa Dickinson Allergic rhinitis du e to pollen J30.1 ; Allergic rhinitis due to animal (cat) (dog) hair and dander J30.81 ; Other allergic rhinitis J30.89 and Other chronic allergic conjunctivitis H10.45 [facility] [address] [place] [address] 03/21/2024 Adalgisa Dickinson Allergic rhinitis du e to pollen J30.1 ; Allergic rhinitis due to animal (cat) (dog) hair and dander J30.81 ; Other allergic rhinitis J30.89 and Other chronic allergic conjunctivitis H10.45 [facility] [address] [place] [address] 04/18/2024 Adalgisa Dickinson Allergic rhinitis du e to pollen J30.1 ; Allergic rhinitis due to animal (cat) (dog) hair and dander J30.81 ; Other allergic rhinitis J30.89 and Other chronic allergic conjunctivitis H10.45 [facility] [address] [place] [address] 05/21/2024 Adalgisa Dickinson Allergic rhinitis du e to pollen J30.1 ; Allergic rhinitis due to animal (cat) (dog) hair and dander J30.81 ; Other allergic rhinitis J30.89 and Other chronic allergic conjunctivitis H10.45 [facility] [address] [place] [address] 06/05/2024 Adalgisa Dickinson Moderate persistent asthma, uncomplicated [...] Allergy status to analgesic agent status Z88.6 [facility] [address] [place] [address] 06/18/2024 Adalgisa Dickinson Allergic rhinitis du e to pollen J30.1 ; Allergic rhinitis due to animal (cat) (dog) hair and dander J30.81 ; Other allergic rhinitis J30.89 and Other chronic allergic conjunctivitis H10.45 Assessments Encounter Date Diagnosis (ICD Code) Assessment Notes Treatment Notes Treatment Clinical Notes Section Notes 11/02/2023 Allergic rhinitis due to pollen (ICD-10 [...] for 2 hours after leaving the office. 11/02/2023 Allergic rhinitis due to animal (cat) (dog) hair and dander (ICD-10 - J30.81) 11/02/2023 Other allergic rhinitis (ICD-10 - J30.89) 11/08/2023 [...] diary. Keep f/u with neurology if needed. 11/02/2023 Other chronic allergic conjunctivitis (ICD-10 - [...] 11/08/2023 Other 06/05/2024 Other Plan Of Treatment No Information Insurance Providers Payer Name Payer Address Payer Phone Subscriber Number Group Number Insured Name Patient Relationship to Insured Coverage Start Date Coverage End Date [facility] [address] [place] [address] [phone] [id number] Devyn Sharif Self - patient is the [...]
--- OUTSIDE RECORDS SUMMARY | 2024-11-01 10:56 | XMS_ITS | Clinical Summary ---
Author Organization [facility] Medical Office Building [address] Address [address] [place] [address] Care Team Providers Care Transition Advisor Name Role Phone Bora Meléndez MD Unavailable Brooks Montero DO Primary Care Provider +1- [phone] Allergies Active Allergy Reactions Criticality Noted Date [...] (05/01/2020): Added automatically from request for surgery [id number] Personal history of colonic polyps 05/01/2020 Overview (05/01/2020): Added automatically from request for surgery [id number] Encounter for screening colonoscopy 05/01/2020 Overview (05/01/2020): Added automatically from request for surgery [id number] Moderate persistent asthma without complication 10/09/2019 Assessment & Plan (04/15/2020 7:59 PM TNT POWDER WORKER): Continue with Wixela and use duo nebs twice a day before using Wixela. If symptoms remain uncontrolled I will add LAMA. Assessment & Plan (10/09/2019 4:28 PM CDT): Continue with wixela , duo nebs and p.r.n. albuterol inhaler. Will obtain methacholine challenge test once he is completely asymptomatic. Allergic rhinitis 07/11/2019 Assessment & Plan (04/15/2020 7:59 PM TNT POWDER WORKER): CONTINUE WITH INTRANASAL CORTICOSTEROIDS. Assessment & Plan [...] REFLUX Assessment & Plan (04/15/2020 8:00 PM TNT POWDER WORKER): Symptoms of GERD are controlled without pharmacotherapy. Tension headache 08/31/2013 Overview (07/21/2016): TENSION HEADACHE NOS Severe asthma with exacerbation Encounters Date Type Department Care Team Description 09/13/2024 Telephone [facility] Orthopedics and Sports Medicine [address] [facility] [address] [place] [address] Santos Ruiz MD Left shoulder from Last 3 Months Immunizations Immunization Administration Dates Next Due Pneumococcal [...] on file Legal Sex Male 11:54 PM TNT POWDER WORKER Gender Identity Not on file Sexual Orientation [...] Vaccine (1 of 2) 2014 Influenza Vaccine (Season Ended) 2024 DTaP/Tdap/Td Vaccine (2 - Td or Tdap) 09/15/2025 09/16/2015, 03/18/2009, 03/18/2009 Medical Devices Implanted Type Area Fluid Dynamicist Device Identifier Shelf Expiration Date Model / Serial / Lot Patch Surgical Ventralex Sepra Sorbaflex Polypropylene Eptfe Small [place] Od1.7 In Monofilament Self Expand Strap Pocket Sterile Umbilical Hernia Repair - [id number] Implanted:Qty: 1 on 04/13/2017 by Anjel Quinones MD at [facility] Mesh N/A: Umbilical [employer]/C R Bard 03/14/2020 [id number] / / [id number] Insurance [facility] Advance Directives For more information, please contact: [phone] * Full Code (Latest Code Status on File) Date Activated Date Inactivated Comments 05/30/2019 6:33 PM 06/04/2019 7:35 PM * Full Code Date Activated Date Inactivated Comments 11/14/2018 6:07 AM 11/15/2018 4:39 PM Care Teams Transition Advisor Relationship Specialty Start Date End Date Brooks Montero DO PCP - General Internal Medicine 08/16/22 Bora Meléndez MD 06/20/18
--- OUTSIDE RECORDS SUMMARY | 2024-11-01 10:56 | XMS_ITS ---
Author Organization [facility] [place] ([address]) Address [address] [place] [address] Care Team Providers Care Fishing Boat Mate Name Role Phone Brooks Montero Primary Care Provider Unavailab lilliana WhittingtonmAdalgisa Unavailable [phone] REASON FOR VISIT SCIT (Aeroallergen) Medications Medication [...] review and pick correct strength-formula tion from [employer] options. If intended option is not shown, [...] Active Encounters Encounter Location Date Provider Diagnosis [facility] [address] [place] [address] 09/17/2024 Adalgisa Dickinson Plan Of Treatment No Information Progress Notes * Devyn SHARIFDOB:1965 (59 yo M)Acc No.[id number]:09/17/2024 SCIT-Aeroallergen Patient: Devyn CONNOLLY Provider: Calvin Dickinson MD :1965 A ge:59 Y S ex:Male Date:09/17/2024 [facility] Pcp:Brooks Montero Subjective: * Chief Complaints: * [...] *Please review and pick correct strength-formulation from [employer] options. If intended option is not shown, [...] 09/17/2024 Generated for Tristen bass/Lucretia/Eric on: 0 11/01/2024 10:55 AM CDT
--- OUTSIDE RECORDS SUMMARY | 2024-11-01 10:56 | XMS_ITS | Encounter Summary ---
Author Organization [facility] Address [address] [place] [id number] Care Team Providers Care Pr Manager Name Role Phone Bora Meléndez MD Primary Care Provider Encounter Details Date Type Department Care Team (Late st Contact Info) Description 01/13/2020 Prep for Procedure [facility]-Ad[facility] Testing [address] [address] [place], [place] [id number] Washington Gamboa MD [address] [place] [address] [phone] Social History Tobacco Use Types Packs/Day Years Used Date Smoking Tobacco: Never Smokeless Tobacco: Never Alcohol Use Standard Drinks/Week Comments Not Currently 0 (1 standard drink = 0.6 oz pur e alcohol) social PHQ-2 Answer Date Recorded PHQ-2 Score 1 01/09/2020 Sex and Gender Information Value Date Recorded Sex Assigned at Not on file Legal Sex Male 4:44 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 Due to the current public health emergency, [facility] is receiving a high volume of samples [...] about COVID-19 can be found at the [facility] website: www.[employer].Remerge/Covid19. Test performed at [facility] [place] [address] [place] [address] Director: MYRON FAJARDO DO,MPH FIRST TEST NO 01/14/2020 10:30 AM CDT [facility] EMPLOYED IN HEALTHCARE NO 01/14/2020 10:30 AM T [facility] SYMPTOMATIC DEFINED BY CDC NO 01/14/2020 10:30 AM CDT [facility] DATE OF SYMPTOM ONSET =FASTING UNKNOWN 01/14/2020 10:58 AM CDT [facility] HOSPITALIZATION STATUS NO 01/14/2020 10:30 AM CDT [facility] PATIENT IN ICU NO 01/14/2020 10:30 AM CDT [facility] RESIDENT OF CONGREGATE CARE NO 01/14/2020 10:30 AM CDT [facility] NOT 01/14/2020 10:58 AM CDT [facility] PATIENT'S RACE WHITE OR 01/14/2020 10:30 AM CDT [facility] ETHNICITY NONHISPANIC 01/14/2020 10:30 AM CDT [facility] SOURCE (QST) NASOPHARYNGEAL SWAB 01/14/2020 10:30 AM CDT [facility] NASOPHARYNGEAL SWAB / Unknown 01/14/2020 9:55 AM CDT us Washington Gamboa MD MICROBIOLOGY - GENERAL ORDERABL ES Final Result [facility] [address] [place] [address], [place] [phone] [employer] [address] [address], documented in this encounter Visit Diagnoses Diagnosis Pre-op exam- Primary Preoperative examination, unspecified documented in this encounter Additional Health Concerns Infection Onset Date Last Indicated Resolved Time COVID-19 Rule Out 01/14/2020 01/14/2020 01/15/2020 4:56 PM CDT documented as of this encounter Care Teams Pr Manager Relationship Specialty Start Date End Date Bora Meléndez MD [address] [address] PCP - General INTERNAL MEDICINE 09/11/19 documented as of this encounter
--- OUTSIDE RECORDS SUMMARY | 2024-11-01 10:56 | XMS_ITS ---
Author Organization [facility] [place] ([address]) Address [address] [place] [address] Care Team Providers Care Rating Clerk Name Role Phone JvramosBrooks Primary Care Provider Unavailab Adalgisa Burrows Unavailable [phone] REASON FOR VISIT SCIT - Traditional Schedule Allergy immunotherapy Medications Medication SIG (Take, Route, Frequency, Duration) Notes Start Date End Date Status SIT (TRADITIONAL) variable per schedule SC per schedule; Duration: to be determined Active Encounters Encounter Location Date Provider Diagnosis [facility] [address] [place] [address] 10/08/2024 Adalgisa Dickinson Allergic rhinitis du e [...] * Devyn ISRAEL JDOB:1965 (59 yo M)Acc No.[id number]:10/08/2024 SCIT-Aeroallergen Patient: Devyn CONNOLLY Provider: Calvin Dickinson MD :1965 A ge:59 Y S ex:Male Date:10/08/2024 Address:[facility] [address], [facility] Pcp:Brooks Montero Subjective: * Chief Complaints: [...] Information: * Visit Code: * Procedure Codes: 78113 IMMUNOTHERAPY INJECTIONS. * Electronic signature of Lottie Dickinson MD on 11/01/2024 at 10:56 AM CDT Sign off status: Pending * Provider: Calvin Dickinson MD Date: 10/08/2024 Generated for Micheali shelia/Lucretia/Claderonsmitting on: 11/01/2024 10:56 AM CDT History and Physical Notes * [...]
--- OUTSIDE RECORDS SUMMARY | 2024-11-01 10:56 | XMS_ITS | Clinical Summary ---
Author Organization [facility] Address [address] [address] Care Team Providers Care Power Generating Plant Operator Name Role Phone Brooks Montero DO Primary Care Provider [phone] Source Comments [facility],non-owned Affiliates and Associated Physician Practices is amultiple site organization consisting of ambulatory clinics and hospital sitesin [place], [place], [place] and [place]. This disclosure is being madepursuant to the Care Everywhere program and may not contain all information available regarding this patient. 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 [facility]ENTER Gender Identity Not on file Sexual Orientation [...] 07/16/1982 DTAP/TDAP/TD VACCINES (1 - Tdap) 07/21/1983 PNEUMOCOCCAL VACCINE 50+ (1 of 1 - PCV) 2014 ZOSTER VACCINE (1 of 2) 2014 COVID-19 VACCINE ( - 2023-2 5 season) 2023 DEPRESSION SCREENING 04/17/2024 INFLUENZA VACCINE (#1) 2024 Respiratory Syncytial Virus (RSV) Vaccine Pt: or over 60 yrs (1 - 1-dose 75+ series) 07/21/2039 HEPATITIS B VACCINE Aged Out No longe r eligible based on patient's age to complete this topic HIB VACCINE Aged Out No longer eligi [...] patient's age to complete this topic Insurance AETNA Care Teams Power Generating Plant Operator Relationship Specialty Start Date End Date Brooks Montero DO PCP - General 11/12/21
--- OUTSIDE RECORDS SUMMARY | 2024-11-01 10:56 | XMS_ITS | Clinical Summary ---
Author Organization [facility] Address [address] [place] [address] Phone Care Team Providers Care Rivet Heater Gas Name Role Phone Lenorubi Brooks Joseph DO [...] Comments Blood Pressure 140/88 03/28/2023 5:26 PM GANG DRILL OPERATOR Pulse 79 03/28/2023 5:26 PM GANG DRILL OPERATOR Temperature 36.5 C (97.7 F) 03/28/2023 5:26 PM GANG DRILL OPERATOR Respiratory Rate 18 03/28/2023 5:26 PM GANG DRILL OPERATOR Oxygen Saturation 99% 03/28/2023 5:26 PM GANG DRILL OPERATOR Inhaled Oxygen Concentration - - Weight 65.8 kg (145 lb) 03/28/2023 5:26 PM GANG DRILL OPERATOR Height 167.6 cm (5' 6) 08/12/2017 5:25 PM CDT Body Mass Index 23.4 08/12/2017 5:25 PM CDT Plan of Treatment Health Maintenance Due Date Last Done Comments Hepatitis C Virus (HCV) Screening 1965 Pneumococcal Immunization (5 0+ years) (2 of 2 - PCV) 05/01/1999 05/01/1998 Cologuard 2009 Immunochemical Fecal Occult Blood 2009 Zoster Immunization (1 of 2) 2014 PSA Discussion 07/21/2019 SARS-COV-2 Immunization ( season) 2023 03/25/2021, 10/02/2020, 09/04/2020 Respiratory Syncytial Virus (RSV) Immunization (Adult) (1 - Risk 60-74 years 1-dose series) 2024 Influenza Immunization (#1) 2024 04/22/2019 Td Immunization Every 10 Yea rs (Adults With 1 Tdap) 09/15/2025 09/16/2015, 03/18/2009 Colonoscopy 12/22/2025 12/23/2015 Colorectal Cancer Screening 12/22/2025 Pneumococcal Immunization Combined Discontinued 05/01/1998 Hepatitis B Immunization Aged Out No longer eligible based on patient's age to complete this topic Human Papillomavirus (HPV) Immunization Aged Out No longer eligible based on patient's age to complete this topic Meningococcal Immunization (ACWY) Aged Out No longer eligible based on patient's age to complete this topic Rotavirus Immunization Aged Out No lo nger eligible based on patient's age to complete this topic Insurance [facility] Care Teams Rivet Heater Gas Relationship Specialty Start Date End Date Brooks Montero DO [facility] [facility] [place] [address] PCP - General Internal Medicine 11/25/21
[2024-11-04 13:08] LABS: Albumin 4.3 g/dL (2.9-4.4); Alpha-1-Globulin 0.2 g/dL (0.0-0.4); Alpha-2-Globulin 0.6 g/dL (0.4-1.0); Gamma Globulin 1.4 g/dL (0.4-1.8)
[2024-11-05 13:08] LABS: Albumin, U 21.8 % (.); Alpha-1-Globulin, U 0.9 % (.); Alpha-2-Globulin, U 17.7 % (.); Beta Globulin, U 39.3 % (.); Gamma Globulin, U 20.3 % (.)
== END 2024-11-01 10:52 | disposition home or self-care (01) ==
LOC: ANHGOSHLAB 10:52
PROVIDERS: PCP Internal Medicine; Visit Provider Nurse Practitioner
DX: D47.2 Monoclonal gammopathy (principal)
CPT/HCPCS: 84156; 84165; 84166

== ENCOUNTER 2024-11-28 10:01 | Outpatient (CLI) | payer OTHER, SELFPAY ==
--- NOTE | ~2024-11-28 | XR_ITS ---
EXAMINATION: BONE SURVEY/METASTATIC SURVEY DATE: 11/28/2024 INDICATION: MGUS TECHNIQUE: A skeletal survey was performed including AP views of the chest, abdomen and pelvis; AP an d lateral/lateral swimmers views of the cervical, thoracic and lumbar spine; lateral view of the skul l, and AP and lateral views of the appendicular skeleton excluding the hands and feet. COMPARISON: None. FINDINGS: Lungs are clear with no airspace opacities, pulmonary edema, pleural effusion or pneumothorax. Cardio mediastinal silhouette is normal. Moderate cervical, mild to moderate thoracic and mild lumbar spondy losis. 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 No suspicious lytic or blastic bone lesions. Cholecystectomy clips in right upper quadrant. IMPRESSION: 1. No suspicious lytic or blastic bone lesions. Reviewed, dictated and finalized at location A.
--- OUTSIDE RECORDS SUMMARY | 2024-11-28 10:18 | XMS_ITS | Encounter Summary ---
Author Organization [facility] Address [address] [place] [address] Care Team Providers Care Search Engineer Name Role Phone Unavailable Primary Care Provider Unavailabl e Reason for Referral * CT Scan (Routine) - Open Specialty Diagnoses / Procedures Referred By Contac t Referred To Contact Diagnoses Abnormal weight loss Procedures CT CHEST ABDOMEN PELVIS W CONT Jordin Lane MD [address] [place] [address] Phone: tel: fax: [place] [phone] Referral ID Status Reason Start Date Expiration Date V isits Requested Visits Authorized [id number] Open STL CTS 11/28/2024 12/29/2025 1 1 * Radiology Services (Routine) - Open Specialty Diagnoses / Procedures Referred By Contac t Referred To Contact Diagnoses MGUS (monoclonal gammopathy of unknown significance) Procedures XR BONE SURVEY COMPLETE Jordin Lane MD [address] [place] [address] [place], [place] [address] Phone: tel: fax: [place] [phone] Referral ID Status Reason Start Date Expiration Date V isits Requested Visits Authorized [id number] Open STL CTS 11/28/2024 12/29/2025 1 1 * Laboratory Services (Routine) - Closed Specialty Diagnoses / Procedures Referred By Contac t Referred To Contact Diagnoses Erythrocytosis Procedures JAK2 MUTATION Jordin Lane MD [address] [place] [address] [address] [place] [address] Phone: tel: fax: Referral ID Status Reason Start Date Expiration Date V isits Requested Visits Authorized [id number] Closed STL CTS 11/28/2024 12/29/2025 1 1 Reason for Visit * Reason Comments Establish Care Encounter Details Date Type Department Care Team (Late st Contact Info) Description 11/28/2024 8:30 AM CDT Office Visit [facility] [place] [address] [facility] [address] [place] [address] MD [address] [place] [address] Erythrocytosis (Primary Dx); MGUS (monoclonal gammopathy of unknown significance); Abnormal weight loss Social History Tobacco Use Types Packs/Day Years Used Date Smoking Tobacco: Former Cigarettes 0.5 10 0 12/24/1987 - 12/23/1997 Smokeless Tobacco: Never Alcohol Use Standard Drinks/Week Comments Yes 0 (1 standard drink = 0.6 oz pur e alcohol) Occasionally Sex and Gender Information Value Date Recorded Sex Assigned at Not on file Legal Sex Male 5:50 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 Gender Identity Not on file Sexual Orientation Not on file documented as of this encounter Last Filed Vital Signs Vital Sign Reading Time Taken Comments Blood Pressure 160/101 11/28/2024 8:55 AM CDT Pulse 77 11/28/2024 8:52 AM CDT Temperature 36.3 C (97.3 F) 11/28/2024 8:52 AM CDT Respiratory Rate 15 11/28/2024 8:52 AM CDT Oxygen Saturation 97% 11/28/2024 8:52 AM CDT Inhaled Oxygen Concentration - - Weight 66.4 kg (146 lb 6.4 oz) 11/28/2024 8:52 A M CDT Height 167.6 cm (5' 6) 11/28/2024 8:52 AM CDT Body Mass Index 23.63 11/28/2024 8:52 AM CDT documented in this encounter Progress Notes * Jordin Lane MD - 11/28/2024 9:25 AM CDT Hematology-oncology consult Note Requesting Physician Ericka Mulligan, BOX BLANK MACHINE OPERATOR HELPER-C Primary Care Physician No primary care provider on file. Problem list There is no problem list on file for this patient. Previous TREATMENT ? Measurable Disease ? Reason for Visit Devyn Sharif is a 59 y.o. male who was referred for consultation for MGUS and erythrocytosis. History of present illness This is a pleasant 59-year-old male with history of testosterone deficiency and has been on testosterone replacement therapy on a weekly basis for the last 4 years duration along with history of asthma and migraine referred to me for abnormal serum protein electrophoresis. He has lost 15 pound weight since having left rotator cuff surgery in July 2024 as he was taking lots of pain medication at that time. He is also been dealing with drenching night sweats for last 15 years duration.He denies any new lumps bumps and lymphadenopathy. He denies any history of thromboembolic events including stroke and heart attack. He has no neuropathy and bone pain. He had last colonoscopy in 2022 came back normal. He has occasional hemorrhoidal bleeding. His labs from October 2024 showed serum immunofixation revealed IgG kappa monoclonal band with M spike of 0.8 g/dL. CBC showed hemoglobin of 15.6 with hematocrit of 53.6. WBC count was normal. He denies any other complaints. Past Medical History Past Medical History: Diagnosis Date Asthma Testosterone deficiency Migraine headaches Surgical History Past Surgical History: Procedure Laterality Date HX CHOLECYSTECTOMY HX SINUS SURGERY HX TENDON REPAIR Medications Current Outpatient Medications Medication Sig Dispense Refill fluconazole (DIFLUCAN) 150 mg tablet TAKE 2 TABLETS BY MOUTH ONCE EVERY WEEK ZOLMitriptan (ZOMIG) 5 mg Tablet, Rapid Dissolve Take 5 mg by mouth. droNABinol (MARINOL) 10 mg capsule Take 10 mg by mouth. albuterol sulfate HFA 90 mcg/actuation aerosol inhaler Take 2 Puffs by inhalation every 6 hours as needed for Wheezing. montelukast (SINGULAIR) 10 mg tablet Take 10 mg by mouth daily at bedtime. No current facility-administered medications for this visit. Allergies Allergies Allergen Reactions Ibuprofen Anaphylaxis, Other (See Comments), Swelling and Unknown Immunizations: There is no immunization history on file for this patient. Family History Family History Problem Relation Name Age of Onset No Known Problems Father Uterine Cancer Mother Colon Cancer Mother No Known Problems Brother No Known Problems Child No Known Problems Child Social History Social History Tobacco Use Smoking status: Former Current packs/day: 0.00 Average packs/day: 0.5 packs/day for 10.0 years (5.0 ttl pk-yrs) Types: Cigarettes Start date: 12/24/1987 Quit date: 12/23/1997 Years since quittin.9 Smokeless tobacco: Never Substance Use Topics Alcohol use: Yes Comment: Occasionally Review of Systems Constitutional: Patient did not mention fever; complain of drenching night sweats and 15 pound weight loss NEENT: Patient did not mention headache; no change in vision; no change in hearing; no sore throat;no dysphagia Respiratory: Patient did not mention shortness of breath; no pleuritic chest pain; no cough; no hemoptysis Cardiac: Patient did not mention cardiac-like chest pain; no palpitations; no orthopnea; no PND; noDOE GI: Patient did not mention abdominal pain; no nausea; no vomiting; no diarrhea; no hematochezia; no melena : Patient did not mention dysuria; no frequency; no hesitancy; no hematuria MOLDING TECHNICIAN: Musculosketetal: Patient did not mention bone pain; no arthralgia; no joint swelling; no myalgia; Skin: Patient did not mention pruritis; no rash; no petechiae; no ecchymoses Endocrine: Patient did not mention polydipsia; no polyuria; no unusual weight gain Neuro: Patient did not mention headache; no change in vision; no sensory changes; no muscle weakness; no confusion; no seizures Psych: Patient did not mention anxiety; no depression; Physical Exam Vitals: As per nursing note Constitutional: Well developed, well nourished, no acute distress, non-toxic appearance Teeth and gum. No signs of infection or swelling. Eyes: PERRL, conjunctiva normal HEENT: Atraumatic, external ears normal, nose normal, oropharynx moist, no pharyngeal exudates. no sinus tenderness Neck- normal range of motion, no tenderness, supple Respiratory: No respiratory distress, normal breath sounds, no rales, no wheezing Cardiovascular: Normal rate, normal rhythm, no murmurs, no gallops, no rubs GI: Soft, nondistended, normal bowel sounds, nontender, no splenomegaly, no hepatomegaly, no mass, no rebound, no guarding : No costovertebral angle tenderness Musculoskeletal: No edema, no tenderness, no deformities. Back- no tenderness Integument: Well hydrated, no rash, Digits and nails inspection normal Lymphatic: No lymphadenopathy noted Neurologic: Alert & oriented x 3, CN 2-12 normal, normal motor function, normal sensory function, no focal deficits noted Psychiatric: Speech and behavior appropriate ? labs No results found for this or any previous visit (from the past 24 hours). Labs from July 2024 showed WBC 6.8 hemoglobin 18.6 hematocrit 53.9 platelet 235,000 neutrophils 63% lymphocyte 19.3% serum protein electrophoresis showed M spike of 0.8 g with IgG kappa monoclonal band present. Pathology ? Imaging & Other Studies Performance Status? Assessment / Plan: ? Monoclonal gammopathy of unknown significance. Patient is a pleasant 59-year-old male whohas a history of testosterone deficiency and asthma currently on testosterone replacement therapy with weekly injections. He has been complaining of drenching night sweats for long-term duration and has lost 15 pound weight recently. There is no evidence of lymphadenopathy on my examination. Labs showed normal creatinine and calcium. Hemoglobin was elevated. He denies any bone pain and neuropathy. We discussed the diagnosis of monoclonal gammopathy of unknown significance and risk of transformation into myeloma which is about 1 %/year. We also discussed the workup for myeloma. At this time wewill repeat serum protein electrophoresis with immunofixation, quantitative immunoglobulin and serum free light chain studies. I will check CBC and CMP as well. Will order the skeletal survey. We will also order CT scan chest abdomen pelvis due to drenching night sweats and weight loss due to concern of lymphoproliferative disorder. No need for bone marrow biopsy at this time. Follow-up in 3 weeks. I have answered all the questions to patient satisfaction. Erythrocytosis. Patient denies any history of smoking but does have asthma. He think he might have sleep apnea but not has been officially diagnosed. He is been taking testosterone for the last 4 years duration and according to patient his last testosterone level was normal. I suspect his erythrocytosis is due to testosterone replacement therapy asthma and possible sleep apnea. Will order erythropoietin level and JAK2 mutation. Based on the repeat lab we will decide about phlebotomy. I would recommend baby aspirin rectal exercise and weight loss. Asthma. Patient is on Singulair and albuterol inhaler. Migraine. He is on Zomig. Chronic toenail fungal infection. He is gone on long-term Diflucan prescribed by sales representative church furniture. Thank you very much for allowing me to participate in Devyn Sharif's evaluation and management. Please feel free to contact if I can be of any further assistance in your patient???s care requiring hematology or oncology evaluation. Sincerely, ? ? Jordin Lane M.D. cell TOBACCO COUNSELING He is not a tobacco/nicotine user. Jordin Lane MD ,11/28/2024 9:25 AM ? Total time spent 60 minutes, two third of the total time spent counseling patient [id number]. CC:?EMILIA Yi-Ivon documented in this encounter Plan of Treatment Upcoming Encounters Date Type Department Care Team (Late st Contact Info) Description 12/30/2024 4:30 PM CDT Telephone Check Up [facility] [place] [address] [facility] [address] [place] [address] MD [address] [facility] [address] [place] [address] Scheduled Orders Name Type Priority Associated Diagnoses Orde r Schedule CBC WITH DIFFERENTIAL Lab Stat MGUS (monoclonal gammopathy of unknown significance) Expected: 11/28/2024, Expires: 11/28/2025 COMPREHENSIVE METABOLIC PANEL Lab Stat MGUS (monoclonal gammopathy of unknown significance) Expected: 11/28/2024, Expires: 11/28/2025 IMMUNOGLOBULINS IGG IGA IGM Lab Routine MGUS (monoclonal gammopathy of unknown significance) Expected: 11/28/2024, Expires: 11/28/2025 KAPPA/LAMBDA, FREE LIGHT CHAINS Lab Routine MGUS (monoclonal gammopathy of unknown significance) Expected: 11/28/2024, Expires: 11/28/2025 PROTEIN ELECTROPHORESIS W/REFLEX,SERUM Lab Routine MGUS (monoclonal gammopathy of unknown significance) Expected: 11/28/2024, Expires: 11/28/2025 ERYTHROPOIETIN LEVEL Lab Routine Erythrocytosis Expected: 11/28/2024, Expires: 11/28/2025 JAK2 MUTATION Lab Routine Erythrocytosis Expected: 11/28/2024, Expires: 11/28/2025 XR BONE SURVEY COMPLETE Imaging Routine MGUS (monoclonal gammopathy of unknown significance) 1 Occurrences starting 11/28/2024 until 11/28/2025 CT CHEST ABDOMEN PELVIS W CONT Imaging Routine Abnormal weight loss Expected: 12/12/2024, Expires: 11/28/2025 documented as of this encounter Visit Diagnoses Diagnosis Erythrocytosis- Primary Reserved for inherently not codable concepts WITHOUT codable children MGUS (monoclonal gammopathy of unknown significance) Monoclonal paraproteinemia Abnormal weight loss Loss of weight documented in this encounter
--- OUTSIDE RECORDS SUMMARY | 2024-11-28 10:18 | XMS_ITS | Clinical Summary ---
Author Organization [facility] Address [address] [place] [address] Care Team Providers Care Carton Filler Name Role Phone Brooks Montero DO Primary Care Provider [phone]- [phone] Source Comments [facility],non-owned Affiliates and Associated Physician Practices is amultiple site organization consisting of ambulatory clinics and hospital sitesin [place], [place], [place]. This disclosure is being madepursuant to the Care Everywhere program and may not contain all information available regarding this patient. 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
--- OUTSIDE RECORDS SUMMARY | 2024-11-28 10:18 | XMS_ITS | Clinical Summary ---
Author Organization [facility] Address [address] [place] [address] Care Team Providers Care Photoengraving Retoucher Name Role Phone Unavailable Primary Care Provider Unavailabl e Allergies Active Allergy Reactions Criticality Noted Date Comments Ibuprofen Anaphylaxis,Other (S ee Comments),Swelling,Unknown High 11/14/2018 Medications albuterol sulfate HFA 90 mcg/actuation aerosol inhaler Take 2 Puffs by inhalation every 6 hours as needed for Wheezing. Active fluconazole (DIFLUCAN) 150 mg tablet TAKE 2 TABLETS BY MOUTH ONCE EVERY WEEK 5 Active montelukast (SINGULAIR) 10 mg tablet Take 10 mg by mouth daily at bedtime. Active ZOLMitriptan (ZOMIG) 5 mg Tablet, Rapid Dissolve Take 5 mg by mouth. 5 Active droNABinol (MARINOL) 10 mg capsule Take 10 mg by mouth. Active dupilumab (Dupixent Syringe) 300 mg/2 mL Syringe Inject by subcutaneous injection one time only. Active Active Problems No known active problems Encounters Date Type Department Care Team Description 11/28/2024 8:30 AM CDT Office Visit [facility] Oncology and Hematology - [place] [address] [place] [phone] MD Erythrocytosis (Primary Dx); MGUS (monoclonal gammopathy of unknown significance); Abnormal weight loss from Last 3 Months Family History Medical History Relation Name Comments No Known Problems Brother No Known Problems Child 1 No Known Problems Child 2 No Known Problems Father Colon Cancer Mother Uterine Cancer Mother Relation Name Status Comments Brother Child 1 Alive Child 2 Alive Father Mother Alive Social History Tobacco Use Types Packs/Day Years Used Date Smoking Tobacco: Former Cigarettes 0.5 10 0 12/24/1987 - 12/23/1997 Smokeless Tobacco: Never Alcohol Use Standard Drinks/Week Comments Yes 0 (1 standard drink = 0.6 oz pur e alcohol) Occasionally Sex and Gender Information Value Date Recorded Sex Assigned at Not on file Legal Sex Male 5:50 AM FACIALIST Gender Identity Not on file Sexual Orientation [...] Mass Index 23.63 11/28/2024 8:52 AM CDT Plan of Treatment Upcoming Encounters Date Type Department Care Team (Late st Contact Info) Description 12/30/2024 4:30 PM CDT Telephone Check Up [facility] Oncology and Hematology - [place] [address] [place] [address] [facility] [address] [place] [address] MD [address] [facility] [address] [place] [address] Health Maintenance Due Date Last Done Comments COLORECTAL SCREENING 2009 Colorectal Cancer Screening 2009 FIT-DNA Q 3 years 2009 FIT/FOBT Q 1 year 2009 Flex Sig/CT Colonography Q 5 years 2009 ZOSTER VACCINE (1 of 2) 2014 Preventative Visit- Commercial 04/17/2024 INFLUENZA VACCINE (#1) 2024 DTAP/TDAP/TD VACCINES (2 - T d or Tdap) 09/15/2025 09/16/2015, 03/18/2009 RSV VACCINE (60+ or ) (1 - 1-dose 75+ series) 07/21/2039 HEPATITIS B VACCINES Aged Out No long er eligible based on patient's age to complete this topic Insurance [facility] [id number] POS II
--- OUTSIDE RECORDS SUMMARY | 2024-11-28 10:18 | XMS_ITS | Encounter Summary ---
Author Organization [facility] Address [address] [place] [address] Care Team Providers Care Fabrics And Material Cutter Name Role Phone Bora Meléndez MD Primary Care Provider Encounter Details Date Type Department Care Team (Late st Contact Info) Description 01/13/2020 Prep for Procedure [facility] Pre-Admission Testing [address] [place], [place] [id number] Washington Gamboa MD [address] [place] [address] [id number] Social History Tobacco Use Types Packs/Day Years Used Date Smoking Tobacco: Never Smokeless Tobacco: Never Alcohol Use Standard Drinks/Week Comments Not Currently 0 (1 standard drink = 0.6 oz pur e alcohol) social PHQ-2 Answer Date Recorded PHQ-2 Score 1 01/09/2020 Sex and Gender Information Value Date Recorded Sex Assigned at Not on file Legal Sex Male 4:44 PM SECURITY OPERATIONS CENTER ANALYST Gender Identity Not on file Sexual Orientation [...] DETECTED NOT DETECTED 01/15/2020 4:56 PM CDT [facility] Comment: A Not Detected (negative) test [...] providers and patients using the following websites: https://www.Pharmacy Development.Storyz/home/Covid-19/HCP/NAAT/fact-sheet2 https://www.Pharmacy Development.Storyz/home/Covid-19/Patients/NAAT/ fact-sheet2 This test has been authorized by the FDA under an Emergency Use Authorization (EUA) for use by authorized laboratories. Due to the current public health emergency, [facility] is receiving a high volume of samples [...] about COVID-19 can be found at the [facility] website: www.[facility].Storyz/Covid19. Test performed at [facility] [place] [address] [place] [address] Director: MYRON FAJARDO DO,MPH FIRST TEST NO 01/14/2020 10:30 AM CDT [facility] EMPLOYED IN HEALTHCARE NO 01/14/2020 10:30 AM T [facility] SYMPTOMATIC DEFINED BY CDC NO 01/14/2020 10:30 AM CDT [facility] DATE OF SYMPTOM ONSET =FASTING UNKNOWN 01/14/2020 10:58 AM CDT [facility] HOSPITALIZATION STATUS NO 01/14/2020 10:30 AM CDT [facility] PATIENT IN ICU NO 01/14/2020 10:30 AM CDT [facility] RESIDENT OF CONGREGATE CARE NO 01/14/2020 10:30 AM CDT [facility] NOT 01/14/2020 10:58 AM CDT [facility] PATIENT'S RACE WHITE OR 01/14/2020 10:30 AM CDT [facility] ETHNICITY NONHISPANIC 01/14/2020 10:30 AM CDT [facility] SOURCE (QST) NASOPHARYNGEAL SWAB 01/14/2020 10:30 AM CDT [facility] NASOPHARYNGEAL SWAB / Unknown 01/14/2020 9:55 AM CDT us Washington Gamboa MD MICROBIOLOGY - GENERAL ORDERABL ES Final Result [facility] [address] [place] [address], [place] [phone] [facility] [address] [address], documented in this encounter Visit Diagnoses Diagnosis Pre-op exam- Primary Preoperative examination, unspecified documented in this encounter Additional Health Concerns Infection Onset Date Last Indicated Resolved Time COVID-19 Rule Out 01/14/2020 01/14/2020 01/15/2020 4:56 PM CDT documented as of this encounter Care Teams Fabrics And Material Cutter Relationship Specialty Start Date End Date Bora Meléndez MD [address] [address] PCP - General INTERNAL MEDICINE 09/11/19 documented as of this encounter
--- OUTSIDE RECORDS SUMMARY | 2024-11-28 10:18 | XMS_ITS | Clinical Summary ---
Author Organization [facility] Address [address] [place] [address] Phone Care Team Providers Care Armor Officer Name Role Phone LenoBrooks venegas Jake YUNG Primary Care Provider Allergies Active Allergy Reactions [...] Comments Blood Pressure 140/88 03/28/2023 5:26 PM DINKEY BRAKEMAN Pulse 79 03/28/2023 5:26 PM DINKEY BRAKEMAN Temperature 36.5 C (97.7 F) 03/28/2023 5:26 PM DINKEY BRAKEMAN Respiratory Rate 18 03/28/2023 5:26 PM DINKEY BRAKEMAN Oxygen Saturation 99% 03/28/2023 5:26 PM [facility]INKEY BRAKEMAN Inhaled Oxygen Concentration - - Weight 65.8 kg (145 lb) 03/28/2023 5:26 PM [facility]INKEY BRAKEMAN Height 167.6 cm (5' 6) 08/12/2017 5:25 [...] patient's age to complete this topic Insurance [facility] Care Teams Armor Officer Relationship Specialty Start Date End Date Brooks Montero DO [facility] [place] [address] PCP - General Internal Medicine 11/25/21
--- OUTSIDE RECORDS SUMMARY | 2024-11-28 10:18 | XMS_ITS | Encounter Summary ---
Author Organization [facility] Address [address] [facility] [place] [address] Care Team Providers Care Research Biostatistician Name Role Phone Brooks Montero DO Primary Care Provider Encounter Details Date Type Department Care Team (Late st Contact Info) Description 05/16/2022 Lab Requisition [facility] [address] [facility] [place] [address] Jose Ramon Kurtz MD [address] [facility] [address] [place] [address] Social History Tobacco Use Types Packs/Day Years Used Date Smoking Tobacco: Never Assessed Sex and Gender Information Value Date Recorded Sex Assigned at Not on file Legal Sex Male 5:48 AM SENIOR RISK ANALYST Gender Identity Not on file Sexual Orientation Not on file documented as of this encounter Plan of Treatment Not on file documented as of this encounter Procedures Procedure Name Priority Date/Time Associated Diagnosis Comments DERMATOPATHOLOGY Routine 05/13/2022 12:0 0 AM SENIOR RISK ANALYST documented in this encounter Results * DERMATOPATHOLOGY (05/13/2022 12:00 AM SENIOR RISK ANALYST) Case Report Dermatopathology Report Case: [id number] Authorizing Provider: Jose Ramon Kurtz MD Collected: 05/13/2022 12:00 AM Ordering Location: [facility] Received: 05/16/2022 03:45 PM Pathologist: Marissa Samuels MD Specimen: Skin, right posterior shoulder 3:32 PM SENIOR RISK ANALYST DERMATOPATHOLOGY LABORATORY Final Diagnosis Specimen A. SKIN, right posterior shoulder: SEBORRHEIC KERATOSIS, RETICULATED (ADENOID) TYPE (L82.1) (see microscopic description) 3 3:32 PM [facility] DERMATOPATHOLOGY LABORATORY at [address] [facility] Clinical History Lentigo vs MM Path#[id number] 3 3:32 PM [facility] DERMATOPATHOLOGY LABORATORY Gross Description Specimen A: Received is one formalin filled container labeled with the patient's name and designated right posterior shoulder. The specimen consists of a shave biopsy measuring 5x4x1 mm. Jar 0. 3 3:32 PM [facility] DERMATOPATHOLOGY LABORATORY Microscopic Description Specimen A. SKIN, right posterior shoulder: There is reticulated hyperplasia of the epidermis with overlying delicate hyperorthokeratosis . Hyperpigmentation is present in the basaloid cells. MART-1/Melan-A staining highlights regular periodicity of melanocytes along the dermoepidermal junction. Additional deeper sections were obtained and reviewed. 3 3:32 PM [facility] DERMATOPATHOLOGY LABORATORY Disclaimer An external and internal positive and negative controls are appropriate for the histochemical, immunohistochemical and immunofluorescence stain(s) in this case (if any), except where stated explicitly. The performance characteristics of the stain(s) cited in this report were developed and its performance characteristic determined by the Dermatopathology Laboratory at [facility], directed by Dr. Carmelo Bar. These tests need not be, and therefore are not, approved by the [place] Food and Drug Administration. The tests are used for clinical purposes. Billing Codes Specimen Charges Stain Charges 76163 1 60628 1 3 3:32 PM [facility] DERMATOPATHOLOGY LABORATORY Embedded Images 3 3:32 PM [facility] DERMATOPATHOLOGY LABORATORY Pathology/Cytolog y TISSUE SPECIMEN FROM SKIN / Unknown 05/13/2022 05/16/2022 3:45 PM SENIOR RISK ANALYST us Jose Ramon Kurtz MD LAB - PATHOLOGY/CYTOLOGY ORDER DRU Final Result DERMATOPATHOLOGY LABORATORY [facility] - Department of Dermatology [facility] Medicine [address] [place] [address], [address] [phone] documented in this encounter Visit Diagnoses Not on filedocumented in this encounter Care Teams Research Biostatistician Relationship Specialty Start Date End Date Brooks Montero DO PCP - General 11/12/21 documented as of this encounter
--- OUTSIDE RECORDS SUMMARY | 2024-11-28 10:18 | XMS_ITS | Clinical Summary ---
Author Organization [facility] Address [address] [place] [address] Care Team Providers Care Crystal Grower Name Role Phone Bora Meléndez MD Unavailable Brooks Montero DO Primary Care Provider [phone] Allergies Active Allergy Reactions Criticality Noted Date [...] Active Additional Information Patient not taking.Reported on 11/06/2024 fluticasone-ume clidin-vilanter (TRELEGY ELLIPTA) 100-62.5-25 mcg inhaler Inhale 1 puff daily 2 Active Active Problems Problem Noted Date Diagnosed Date Scapular dyskinesis 11/06/2024 Labral tear of long head of left biceps tendon 0 11/06/2024 Superior glenoid labrum lesion of left shoulder 11/06/2024 Family history of colon cancer in mother 021 Overview (05/01/2020): Added automatically from request for surgery [id number] Personal history of colonic polyps 05/01/2020 Overview (05/01/2020): Added automatically from request for surgery [id number] Encounter for screening colonoscopy 05/01/2020 Overview (05/01/2020): Added automatically from request for surgery [id number] Moderate persistent asthma without complication 10/09/2019 Assessment & Plan (04/15/2020 7:59 PM X RAY ELECTRONICS WIRING TECHNICIAN): Continue with Wixela and use duo nebs twice a day before using Wixela. If symptoms remain uncontrolled I will add LAMA. Assessment & Plan (10/09/2019 4:28 PM CDT): Continue with wixela , duo nebs and p.r.n. albuterol inhaler. Will obtain methacholine challenge test once he is completely asymptomatic. Allergic rhinitis 07/11/2019 Assessment & Plan (04/15/2020 7:59 PM X RAY ELECTRONICS WIRING TECHNICIAN): CONTINUE WITH INTRANASAL CORTICOSTEROIDS. Assessment & Plan [...] REFLUX Assessment & Plan (04/15/2020 8:00 PM X RAY ELECTRONICS WIRING TECHNICIAN): Symptoms of GERD are controlled without pharmacotherapy. Tension headache 08/31/2013 Overview (07/21/2016): TENSION HEADACHE NOS Severe asthma with exacerbation Encounters Date Type Department Care Team Description 11/21/2024 Telephone [facility] Orthopedics and Sports Medicine [address] [place] [phone] Santos Ruiz MD FMLA/Disability paperwork 11/06/2024 3:05 PM CDT Ancillary Procedure [facility] Imaging at [address] [phone] 11/06/2024 3:00 PM CDT Office Visit [facility] Medicine [address] [place] [phone] Santos Ruiz MD Left shoulder pain, unspecified chronicity (Primary Dx); Scapular dyskinesis; Labral tear of long head of left biceps tendon, initial encounter; Superior glenoid labrum lesion of left shoulder, initial encounter 11/06/2024 Orders Only [facility] [address] [place] [phone] Santos Ruiz MD S/P arthroscopy of left shoulder (Primary Dx) 11/06/2024 Telephone [facility] [address] [place] [phone] Santos Ruiz MD Surgical Clearance 09/13/2024 Telephone [facility] [address] [place] [address] [address] [place] [address] Santos Ruiz MD Left shoulder [...] on file Legal Sex Male 11:54 PM X RAY ELECTRONICS WIRING TECHNICIAN Gender Identity Not on file Sexual Orientation Not on file Obstetrics History Last Filed Vital Signs Vital Sign Reading Time Taken Comments Blood Pressure 140/95 11/06/2024 4:07 PM CDT Pulse 74 11/06/2024 4:07 PM CDT Temperature 36.6 C (97.8 F) 01/21/2024 11:38 AM CDT Respiratory Rate 18 01/21/2024 11:38 AM CDT Oxygen Saturation 97% 01/21/2024 11:38 AM CDT Inhaled Oxygen Concentration - - Weight 67.6 kg (149 lb) 11/06/2024 4:07 PM CDT Height 167.6 cm (5' 6) 11/06/2024 4:07 PM CDT Body Mass Index 24.05 11/06/2024 4:07 PM CDT Plan of Treatment Health Maintenance Due Date Last Done Comments Colon Cancer Screening-Colonoscopy 1964 Depression Screening 1964 Hepatitis C Screening 1964 Prostate Cancer Screening-PSA 1964 Hepatitis B Screening 1982 Regular Well Visit/Exam 18-64 1982 Pneumococcal vaccine <65 (2 of 2 - PCV) 05/01/1999 05/01/1998 Zoster Vaccine (1 of 2) 2014 Influenza Vaccine (#1) 2024 DTaP/Tdap/Td Vaccine (2 - Td or Tdap) 09/15/2025 09/16/2015, 03/18/2009, 03/18/2009 Medical Devices Implanted Type Area Coyote Hunter Device Identifier Shelf Expiration Date Model / Serial / Lot Patch Surgical Ventralex Sepra Sorbaflex Polypropylene Eptfe Small [place] Od1.7 In Monofilament Self Expand Strap Pocket Sterile Umbilical Hernia Repair - [id number] Implanted:Qty: 1 on 04/13/2017 by Anjel Quinones MD at [facility] Mesh N/A: Umbilical [employer]/C R Bard 03/14/2020 [id number] / / [id number] Procedures Procedure Name Priority Date/Time Associated Diagnosis Comments XR SHOULDER LEFT 2 OR MORE VIEWS Routine 11/06/2024 4:05 PM CDT Left shoulder pain, unspecified chronicity from Last 3 Months Results * XR Shoulder Left 2 or More Views (11/06/2024 4:05 PM CDT) Anatomical Region Laterality Modality Upper Extremities, Shoulder Left Digi keyonna Radiography Narrative 11/06/2024 4:50 PM CDT Four views left shoulder postsurgical changes greater tuberosity from previous rotator cuff repair no fracture subluxation or dislocation Santos Ruiz MD IMG XR PROCEDURES Final Resu lt from Last 3 Months Insurance [facility] Advance Directives For more information, please contact: [phone] * Full Code (Latest Code Status on File) Date Activated Date Inactivated Comments 05/30/2019 6:33 PM 06/04/2019 7:35 PM * Full Code Date Activated Date Inactivated Comments 11/14/2018 6:07 AM 11/15/2018 4:39 PM Care Teams Crystal Grower Relationship Specialty Start Date End Date Brooks Montero DO PCP - General Internal Medicine 08/16/22 Bora Meléndez MD 06/20/18
--- OUTSIDE RECORDS SUMMARY | 2024-11-28 10:18 | XMS_ITS | Clinical Summary ---
Author Organization [facility] Address [address] [place] [address] Care Team Providers Care Funder Name Role Phone Bora Meléndez MD Primary [...] Date Diagnosed Date Severe asthma with exacerbation ([facility]) 2019 Allergic rhinitis 07/11/2019 Overview (09/11/2019): Last Assessment & Plan: Continue with Flonase. Acute respiratory failure with hypoxia ([facility]) 05/30/2019 Elevated hemoglobin 05/30/2019 Lactic acidosis [...] on file Legal Sex Male 4:44 PM COMPUTER SUPPORT SPECIALIST Gender Identity Not on file Sexual Orientation Not on file Last Filed Vital Signs Vital Sign Reading Time Taken Comments Blood Pressure 130/90 03/19/2020 2:03 PM COMPUTER SUPPORT SPECIALIST Pulse 83 03/19/2020 2:03 PM COMPUTER SUPPORT SPECIALIST Temperature 36.7 C (98.1 F) 03/19/2020 2:03 PM COMPUTER SUPPORT SPECIALIST Respiratory Rate 16 01/17/2020 1:10 PM CDT Oxygen Saturation 97% 02/06/2020 3:51 PM CDT Inhaled Oxygen Concentration - - Weight 60.6 kg (133 lb 9.6 oz) 03/19/2020 2:03 P M COMPUTER SUPPORT SPECIALIST Height 167.6 cm (5' 6) 03/19/2020 2:03 PM COMPUTER SUPPORT SPECIALIST Body Mass Index 21.56 03/19/2020 2:03 PM COMPUTER SUPPORT SPECIALIST Plan of Treatment Health Maintenance Due Date [...] this topic Medical Devices Implanted Type Area Pin Chaser Device Identifier Shelf Expiration Date Model / Serial / Lot Dx Swivel Lock Implanted:Qty: 1 on 01/17/2020 by Washington Gamboa MD at [facility] Right: Elbow [employer] 07/14/2021 [id number] / / [id number] Insurance [facility] [facility] Care Teams Funder Relationship Specialty Start Date End Date Bora Meléndez MD [address] [address] PCP - General INTERNAL MEDICINE 09/11/19
== END 2024-11-28 10:02 | disposition home or self-care (01) ==
PROVIDERS: PCP Internal Medicine; Visit Provider Internal Medicine Hematology & Oncology
DX: D47.2 Monoclonal gammopathy (principal)
CPT/HCPCS: 77075

== ENCOUNTER 2024-12-06 08:09 | Outpatient (CLI) | payer OTHER, SELFPAY ==
--- OUTSIDE RECORDS SUMMARY | 2024-09-17 12:30 | XMS_ITS ---
Author Organization [facility] ([address]) Address [address] [place] [address] Care Team Providers Care Clothing Man Name Role Phone Brooks Montero Primary Care Provider Unavailab lilliana WhittingtonmAdalgisa Unavailable [phone] REASON FOR VISIT SCIT (Aeroallergen) Medications Medication SIG (Take, Route, Frequency, Duration) Notes Start Date End Date Status ALBUTEROL (EQV-PROAIR HFA) 90 MCG/INH 2 PUFF(S) INHALED Q4-6 HOURS, PRN AND PER THE ASTHMA ACTION PLAN; Duration: 30 DAYS *Please review for potential replacement for e-prescription and drug interaction check* Not-Taking Singulair 10 MG 1 tab(s) orally once a day; Duration: 90 days Not-Taking ALBUTEROL (EQV-PROAIR HFA) 90 MCG/INH INHALE 2 PUFFS BY MOUTH EVERY 4 TO 6 HOURS NEEDED AND PER THE ASTHMA ACTION PLAN; Duration: 30 *Please review for potential replacement for e-prescription and drug interaction check* Not-Taking ZyrTEC Allergy 10 MG 1 tab(s) orally once a day; Duration: 90 days Not-Taking SIT (TRADITIONAL) variable per schedule SC per schedule; Duration: to be determined Active DUPIXENT PRE-FILLED PEN 300 MG/2 ML DIRECTED SUBCUTANEOUSLY EVERY 2 WEEKS *Please review for potential replacement for e-prescription and drug interaction check* Active ZOLMitriptan 5 MG 1 tab(s) orally once a day uses prn Active Fluticasone Propionate (Inhal) 100 MCG/INH 1 PUFF(S) INHALED 2 TIMES A DAY; Duration: 30 DAY(S) uses once a day *Please review and pick correct strength-formula tion from [employer] options. If intended option is not shown, discontinue and re-order from Quick Search* Active Auvi-Q 0.3 MG/0.3ML as directed intramuscularly once; Duration: 30 days 11/12/2020 Active Xyzal Allergy 24HR 5 MG 1 tablet PO Qday; Duration: 30 days 11/03/2020 Not-Taking NASAL WASHES N/A as directed intranasally as needed Active Montelukast Sodium 10 MG 1 tablet Orally Once a day; Duration: 90 days Active Albuterol Sulfate HFA 108 (90 Base) MCG/ACT 2 puffs as needed Inhalation every 4 hrs; Duration: 30 days Active droNABinol 10 MG 1 cap(s) orally 2 times a day Active ZyrTEC Allergy 10 MG 1 tab(s) orally once a day; Duration: 90 days Active ZYRTEC 10 mg 1 tab(s) orally once a day; Duration: 90 days Active Encounters Encounter Location Date Provider Diagnosis [facility] [address] [facility] [address] [place] [address] 09/17/2024 Adalgisa Dickinson Plan Of Treatment Next Appt Details Provider Name:Adalgisa mills, 12/12/2024 08:30:00 AM, [address] [facility], [address], [place], [address], Progress Notes * Devyn SHARIFDOB:1965 (59 yo M)Acc No.[id number]:09/17/2024 SCIT-Aeroallergen Patient: Devyn CONNOLLY Provider: Calvin Dickinson MD :1965 A ge:59 Y S ex:Male Date:09/17/2024 Address:[facility] [address] [facility] Pcp:Brooks Montero Subjective: * Chief Complaints: * 1 . SCIT (Aeroallergen). * Medical History: * Medications: T aking ZYRTEC 10 mg tablet 1 tab(s) orally once a day , Taking NASAL WASHES N/A 1 quart of sterilized tap water or distilled water, 1 tsp NaCl, 1 pinch of baking soda as directed intranasally as needed , Taking Albuterol Sulfate HFA 108 (90 Base) MCG/ACT Aerosol Solution 2 puffs as needed Inhalation every 4 hrs , Taking Montelukast Sodium 10 MG Tablet 1 tablet Orally Once a day , Taking ZyrTEC Allergy 10 MG Tablet 1 tab(s) orally once a day , Taking droNABinol 10 MG Capsule 1 cap(s) orally 2 times a day , Taking DUPIXENT PRE-FILLED PEN 300 MG/2 ML SOLUTION DIRECTED SUBCUTANEOUSLY EVERY 2 WEEKS , Notes to Pharmacist: *Please review for potential replacement for e-prescription and drug interaction check*, Taking Fluticasone Propionate (Inhal) 100 MCG/INH POWDER 1 PUFF(S) INHALED 2 TIMES A DAY , Notes to Pharmacist: uses once a day *Please review and pick correct strength-formulation from [employer] options. If intended option is not shown, discontinue and re-order from Quick Search*, Taking ZOLMitriptan 5 MG Tablet 1 tab(s) orally once a day , Notes to Pharmacist: uses prn, Taking Auvi-Q 0.3 MG/0.3ML Solution Auto-injector as directed intramuscularly once , Taking SIT (TRADITIONAL) variable see record per schedule SC per schedule , Not-Taking/PRN Xyzal Allergy 24HR 5 MG Tablet 1 tablet PO Qday , Not-Taking/PRN Singulair 10 MG Tablet 1 tab(s) orally once a day , Not-Taking/PRN ALBUTEROL (EQV-PROAIR HFA) 90 MCG/INH AEROSOL 2 PUFF(S) INHALED Q4-6 HOURS, PRN AND PER THE ASTHMA ACTION PLAN , Notes to Pharmacist: *Please review for potential replacement for e-prescription and drug interaction check*, Not-Taking/PRN ZyrTEC Allergy 10 MG Tablet 1 tab(s) orally once a day , Not-Taking/PRN ALBUTEROL (EQV-PROAIR HFA) 90 MCG/INH AEROSOL INHALE 2 PUFFS BY MOUTH EVERY 4 TO 6 HOURS NEEDED AND PER THE ASTHMA ACTION PLAN , Notes to Pharmacist: *Please review for potential replacement for e-prescription and drug interaction check* Objective: * Vitals: Assessment: Plan: * Treatment: * Billing Information: * Visit Code: * Procedure Codes: * Electronic signature of Lottie Dickinson MD on 12/06/2024 at 08:15 AM CDT Sign off status: Pending * Provider: Calvin Dickinson MD Date: 0 09/17/2024 Generated for Tristen bass/Lucretia/Eric on: 0 12/06/2024 08:15 AM CDT
--- OUTSIDE RECORDS SUMMARY | 2024-10-08 11:00 | XMS_ITS ---
Author Organization [facility] ([address]) Address [address] [place] [address] Care Team Providers Care Inspector Insulation Name Role Phone JvramosBrooks Primary Care Provider Unavailab Adalgisa Burrows Unavailable [phone] REASON FOR VISIT SCIT - Traditional Schedule Allergy immunotherapy Medications Medication SIG (Take, Route, Frequency, Duration) Notes Start Date End Date Status SIT (TRADITIONAL) variable per schedule SC per schedule; Duration: to be determined Active Encounters Encounter Location Date Provider Diagnosis [facility] [address] [facility] [address] [place] [address] 10/08/2024 Adalgisa Dickinson Allergic rhinitis du e to pollen J30.1 ; Allergic rhinitis due to animal (cat) (dog) hair and dander J30.81 ; Other allergic rhinitis J30.89 and Other chronic allergic conjunctivitis H10.45 Assessments Encounter Date Diagnosis (ICD Code) Assessment Notes Treatment Notes Treatment Clinical Notes Section Notes 10/08/2024 Allergic rhinitis due to pollen (ICD-10 - J30.1) 10/08/2024 Allergic rhinitis due to animal (cat) (dog) hair and dander (ICD-10 - J30.81) 10/08/2024 Other allergic rhinitis (ICD-10 - J30.89) 10/08/2024 Other chronic allergic conjunctivitis (ICD-10 - H10.45) Plan Of Treatment Medication Medication Name Sig Start Date Stop Date Notes SIT (TRADITIONAL) variable per schedule SC per schedule; Duration: to be determined Next Appt Details Follow Up: 1 Week, Reason: Provider Name:Adalgisa rojasjay, 12/12/2024 08:30:00 AM, [address] [facility], [address], [place], [address], Progress Notes * Devyn ISRAELDOB:1965 (59 yo M)Acc No.[id number]:10/08/2024 SCIT-Aeroallergen Patient: Devyn CONNOLLY Provider: Calvin Dickinson MD :1965 A ge:59 Y S ex:Male Date:10/08/2024 Address:[facility] [address] [facility] Pcp:Brooks Montero Subjective: * Chief Complaints: [...] Information: * Visit Code: * Procedure Codes: 65873 IMMUNOTHERAPY INJECTIONS. * Electronic signature of Lottie Dickinson MD on 12/06/2024 at 08:15 AM CDT Sign off status: Pending * Provider: Calvin Dickinson MD Date: 10/08/2024 Generated for Tristen bass/Lucretia/Calderonsmitting on: 12/06/2024 08:15 AM CDT History and Physical Notes * [...]
--- NOTE | ~2024-12-06 | CT_ITS ---
EXAMINATION: CT chest abdomen pelvis w con DATE: 12/06/2024 13:40 CDT INDICATION: Abnormal weight loss TECHNIQUE: Computed tomography (CT) of the chest, abdomen, and pelvis was performed with intravenous contrast. The dose-length product was 329.45 mGy-cm. COMPARISON: None FINDINGS: CHEST CT: No enlarged mediastinal or hilar lymph nodes. Heart is mildly enlarged. Thoracic aorta is unremarkable. Tracheobronchial tree is patent. No pneumothorax. No pleural effusion. No focal pulmonary consolidation. ABDOMEN/PELVIS CT: There is a too small to characterize low-attenuation lesion in the right lobe of the liver. The liver is otherwise unremarkable. There is a too small to characterize low-attenuation lesion in the spleen. There is a 2.6 cm cyst in the left kidney. No hydronephrosis. Abdominal aorta is not aneurysmal. Pancreas is unremarkable. Bladder is unremarkable. Prostate gland is mildly enlarged partially calcified. No enlarged lymph nodes identified in the abdomen or pelvis. Moderate to large amount of stool. No dilated bowel loops. No colitis identified. Appendix is unremarkable. Mild diverticulosis. Mild joint space narrowing at the L5-S1 level. Mild multilevel degenerative change throughout the visualized spine. IMPRESSION: 1. No CT evidence for an acute process in the chest, abdomen or pelvis. 2. Left renal cyst. 3. Prostate gland is mildly enlarged and partially calcified. 4. Mild diverticulosis. Reviewed, dictated and finalized at location Q.
--- OUTSIDE RECORDS SUMMARY | 2024-12-06 08:14 | XMS_ITS | Encounter Summary ---
Author Organization [facility] Address [address] [place] [address] Care Team Providers Care Per Diem Interpreter Name Role Phone Unavailable Primary Care Provider Unavailabl e Encounter Details Date Type Department Care Team (Late st Contact Info) Description 12/02/[address] [facility] Oncology and Hematology [facility] [address] [place] [address] MD [facility] [facility] [address] [place] [phone] Social History Tobacco Use Types Packs/Day Years Used Date Smoking Tobacco: Former Cigarettes 0.5 10 0 12/24/1987 - 12/23/1997 Smokeless Tobacco: Never Alcohol Use Standard Drinks/Week Comments Yes 0 (1 standard drink = 0.6 oz pur e alcohol) Occasionally Sex and Gender Information Value Date Recorded Sex Assigned at Not on file Legal Sex Male 5:50 AM GOVERNMENT GAUGER Gender Identity Not on file Sexual Orientation Not on file documented as of this encounter Plan of Treatment Upcoming Encounters Date Type Department Care Team (Late st Contact Info) Description 12/30/2024 4:30 PM CDT Telephone Check Up [facility] Oncology and Hematology [facility] [address] [place] [address] MD [address] [place] [address] documented as of this encounter Procedures Procedure Name Priority Date/Time Associated Diagnosis Comments XR BONE SURVEY COMPLETE Routine 11/28/2024 10:50 AM CDT documented in this encounter Results * XR BONE SURVEY COMPLETE (11/28/2024 10:50 AM CDT) Anatomical Region Laterality Modality Other Jordin Lane MD DIAGNOSTIC IMAGING ORDERABLES F inal Result documented in this encounter Visit Diagnoses Not on filedocumented in this encounter
--- OUTSIDE RECORDS SUMMARY | 2024-12-06 08:14 | XMS_ITS | Clinical Summary ---
Author Organization [facility] Address [address] [place] [address] Care Team Providers Care Excelsior Machine Operator Name Role Phone Bora Meléndez MD Primary [...] Date Diagnosed Date Severe asthma with exacerbation ([facility]) 2019 Allergic rhinitis 07/11/2019 Overview (09/11/2019): Last Assessment & Plan: Continue with Flonase. Acute respiratory failure with hypoxia ([facility]) 05/30/2019 Elevated hemoglobin [...] on file Legal Sex Male 4:44 PM LAMP DECORATOR Gender Identity Not on file Sexual Orientation Not on file Last Filed Vital Signs Vital Sign Reading Time Taken Comments Blood Pressure 130/90 03/19/2020 2:03 PM LAMP DECORATOR Pulse 83 03/19/2020 2:03 PM LAMP DECORATOR Temperature 36.7 C (98.1 F) 03/19/2020 2:03 PM LAMP DECORATOR Respiratory Rate 16 01/17/2020 1:10 PM CDT Oxygen Saturation 97% 02/06/2020 3:51 PM CDT Inhaled Oxygen Concentration - - Weight 60.6 kg (133 lb 9.6 oz) 03/19/2020 2:03 P M LAMP DECORATOR Height 167.6 cm (5' 6) 03/19/2020 2:03 PM LAMP DECORATOR Body Mass Index 21.56 03/19/2020 2:03 PM LAMP DECORATOR Plan of Treatment Health Maintenance Due Date [...] this topic Medical Devices Implanted Type Area Transit Vehicle Inspector Device Identifier Shelf Expiration Date Model / Serial / Lot Dx Swivel Lock Implanted:Qty: 1 on 01/17/2020 by Washington Gamboa MD at [facility] Right: Elbow [employer] 07/14/2021 [id number] / / [id number] Insurance AETNA [facility] Care Teams Excelsior Machine Operator Relationship Specialty Start Date End Date Bora Meléndez MD [address] [address] PCP - General INTERNAL MEDICINE 09/11/19
--- OUTSIDE RECORDS SUMMARY | 2024-12-06 08:15 | XMS_ITS | Encounter Summary ---
Author Organization [facility] Address [address] [place] [address] Care Team Providers Care Bundle Tier Name Role Phone Brooks Montero DO Primary Care Provider Encounter Details Date Type Department Care Team (Late st Contact Info) Description 05/16/2022 Lab Requisition [facility] [address] [facility], [place] [address] Jose Ramon Kurtz MD [address] [facility] [address] [place] [address] Social History Tobacco Use Types Packs/Day Years Used Date Smoking Tobacco: Never Assessed Sex and Gender Information Value Date Recorded Sex Assigned at Not on file Legal Sex Male 5:48 AM WASHING MACHINE MECHANIC Gender Identity Not on file Sexual Orientation Not on file documented as of this encounter Plan of Treatment Not on file documented as of this encounter Procedures Procedure Name Priority Date/Time Associated Diagnosis Comments DERMATOPATHOLOGY Routine 05/13/2022 12:0 0 AM WASHING MACHINE MECHANIC documented in this encounter Results * DERMATOPATHOLOGY (05/13/2022 12:00 AM WASHING MACHINE MECHANIC) Case Report Dermatopathology Report Case: [id number] Authorizing Provider: Jose Ramon Kurtz MD Collected: 05/13/2022 12:00 AM Ordering Location: [facility] Received: 05/16/2022 03:45 PM Pathologist: Marissa Samuels MD Specimen: Skin, right posterior shoulder 3:32 PM WASHING MACHINE MECHANIC DERMATOPATHOLOGY LABORATORY Final Diagnosis Specimen A. SKIN, right posterior shoulder: SEBORRHEIC KERATOSIS, RETICULATED (ADENOID) TYPE (L82.1) (see microscopic description) 3 3:32 PM [facility] DERMATOPATHOLOGY LABORATORY at [address] [facility] Clinical History Lentigo vs MM Path#[id number] 3 3:32 PM [facility] DERMATOPATHOLOGY LABORATORY Gross Description Specimen A: Received is one formalin filled container labeled with the patient's name and designated right posterior shoulder. The specimen consists of a shave biopsy measuring 5x4x1 mm. Jar 0. 3 3:32 PM [facility] DERMATOPATHOLOGY LABORATORY Microscopic Description Specimen A. SKIN, right posterior shoulder: There is reticulated hyperplasia of the epidermis with overlying delicate hyperorthokeratosis . Hyperpigmentation is present in the basaloid cells. MART-1/Melan-A staining highlights regular periodicity of melanocytes along the dermoepidermal junction. Additional deeper sections were obtained and reviewed. 3 3:32 PM [facility] DERMATOPATHOLOGY LABORATORY Disclaimer An external and internal positive and negative controls are appropriate for the histochemical, immunohistochemical and immunofluorescence stain(s) in this case (if any), except where stated explicitly. The performance characteristics of the stain(s) cited in this report were developed and its performance characteristic determined by the Dermatopathology Laboratory at [facility], directed by Dr. Carmelo Bar. These tests need not be, and therefore are not, approved by the [place] Food and Drug Administration. The tests are used for clinical purposes. Billing Codes Specimen Charges Stain Charges 41236 1 00832 1 3 3:32 PM [facility] DERMATOPATHOLOGY LABORATORY Embedded Images 3 3:32 PM [facility] DERMATOPATHOLOGY LABORATORY Pathology/Cytolog y TISSUE SPECIMEN FROM SKIN / Unknown 05/13/2022 05/16/2022 3:45 PM WASHING MACHINE MECHANIC us Jose Ramon Kurtz MD LAB - PATHOLOGY/CYTOLOGY ORDER DRU Final Result DERMATOPATHOLOGY LABORATORY [facility] - Department of Dermatology [facility] [address] [place] [address], [address] [phone] documented in this encounter Visit Diagnoses Not on filedocumented in this encounter Care Teams Bundle Tier Relationship Specialty Start Date End Date Brooks Montero DO PCP - General 11/12/21 documented as of this encounter
--- OUTSIDE RECORDS SUMMARY | 2024-12-06 08:15 | XMS_ITS | Encounter Summary ---
Author Organization [facility] Healthcare Address [address] [place] [address] Care Team Providers Care Barrel Loader And Cleaner Name Role Phone Bora Meléndez MD Unavailable [phone] Brooks Montero DO Primary Care Provider [phone] Reason for Visit * Reason Onset Date Comments FMLA/Disability paperwork 11/21/2024 Encounter Details Date Type Department Care Team (Late st Contact Info) Description 11/21/2024 Telephone [facility] Medical Group Orthopedics and Sports Medicine [address] [facility] [address] [place] [address] Santos Ruiz MD [address] [place] [address] [address] [facility] [address] [place] [address] FMLA/Disability paperwork Social History Tobacco Use Types Packs/Day Years Used Date Smoking Tobacco: Former Cigarettes 0.3 10 1 988 - 1998 Smokeless Tobacco: Never Alcohol Use Standard Drinks/Week [...] on file 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 * Telephone Encounter - Griselda Victoria - 12/04/2024 12:15 PM CDT Patient called in and stated that his insurance received a fax but it was blank. He requests that this be refaxed as soon as possible as he is a month behind on getting paid due to this paperwork. Requests it be faxed to [phone]. He would also like to know if his surgery has been pre-approved by his insurance and if it has not,he requests that that process be started so there is no delay there. Requests c/b after paperwork is faxed to confirm. * Telephone Encounter - Scarlet Morris MA - 11/21/2024 10:43 AM CDT I called patient for verbal permission to release information. He gave permission for any information to be released to [employer]. I have completed the paperwork and attached forms. I have faxed them to [employer]. documented in this encounter Plan of Treatment Not on file documented as of this encounter Visit Diagnoses Not on filedocumented in this encounter Care Teams Barrel Loader And Cleaner Relationship Specialty Start Date End Date Brooks Montero DO PCP - General Internal Medicine 08/16/22 Bora Meléndez MD 06/20/18 documented as of this encounter
--- OUTSIDE RECORDS SUMMARY | 2024-12-06 08:15 | XMS_ITS | Patient Health Record ---
Author Organization [facility] [place] ([address]) Address [address] [place] [address] Care Team Providers Care Assessment Manager Name Role Phone Brooks Montero Primary Care Provider UnavailAdalgisa Sam Unavailable [phone] Allergies Allergen (clinical drug ingredient) Drug/Non Drug [...] orally once a day uses prn Active Xyzal Allergy 24HR 5 MG 1 tablet PO Qday; Duration: 30 days 11/03/2020 Not-Taking Auvi-Q 0.3 MG/0.3ML as directed intramuscularly once; Duration: 30 days 11/12/2020 Active ZYRTEC 10 mg 1 tab(s) orally once a day; Duration: 90 days Active Singulair 10 MG 1 tab(s) orally once a day; Duration: 90 days Not-Taking NASAL WASHES N/A as directed intranasally as needed Active ALBUTEROL (EQV-PROAIR HFA) 90 MCG/INH 2 PUFF(S) INHALED Q4-6 HOURS, PRN AND PER THE ASTHMA ACTION PLAN; Duration: 30 DAYS *Please review for potential replacement for e-prescription and drug interaction check* Not-Taking SIT (TRADITIONAL) variable per schedule SC per schedule; Duration: to be determined Active Albuterol Sulfate HFA 108 (90 Base) [...] once a day; Duration: 90 days Active droNABinol 10 MG 1 cap(s) orally 2 times a day Active DUPIXENT PRE-FILLED PEN 300 MG/2 ML DIRECTED SUBCUTANEOUSLY EVERY 2 WEEKS *Please review for potential replacement for e-prescription and drug interaction check* Active Fluticasone Propionate (Inhal) 100 MCG/INH 1 PUFF(S) INHALED 2 TIMES A DAY; Duration: 30 DAY(S) uses once a day *Please review and pick correct strength-formula tion from Social DJ options. If intended option is not shown, discontinue and re-order from Quick Search* Active Immunizations Vaccine Route Administration Date Status [...] Problem Chronic migraine without aura, non-refractory (disorder) (636782919934860) Migraine without aura, not intractable, without status migrainosus (G43.009) Active confirmed Problem Refractory migraine (143061938) Migraine, unspecified, intractable, without status migrainosus (G43.919) Active confirmed Problem Chronic allergic conjunctivitis (46451558) Other chronic allergic conjunctivitis (H10.45) Active confirmed Problem Common cold (83839756) Acute nasopharyngitis [common cold] (J00) Active confirmed Problem Allergic rhinitis caused by pollen (disorder) (02268579) Allergic rhinitis due to pollen (J30.1) Active confirmed Problem Allergic rhinitis caused by animal hair and dander (970660908496227) Allergic rhinitis due to animal (cat) (dog) hair and dander (J30.81) Active confirmed Problem Allergic rhinitis (82876193) Other allergic rhinitis (J30.89) Active confirmed Problem Chronic sinusitis (53437382) Chronic sinusitis, unspecified (J32.9) Active confirmed Problem Uncomplicated moderate persistent asthma (757010035) Moderate persistent asthma, uncomplicated (J45.40) Active confirmed Problem 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) (2255658033004884 8) Allergy status to analgesic agent status (Z88.6) Active confirmed Problem Allergic rhinitis caused by pollen (disorder) (84391878) Allergic rhinitis due to pollen (J30.1) Active confirmed Problem Allergic rhinitis caused by animal hair and dander (358678025627766) Allergic rhinitis due to animal (cat) (dog) hair and dander (J30.81) Active confirmed Problem Allergic rhinitis (16473816) Other allergic rhinitis (J30.89) Active confirmed Problem Exacerbation of moderate persistent asthma (disorder) (526484497) Moderate persistent asthma with (acute) exacerbation (J45.41) Active confirmed Problem Chronic allergic conjunctivitis (96106310) Other chronic allergic conjunctivitis (H10.45) Active confirmed Problem Food allergy (666583709) Allergy to other foods (Z91.018) Active confirmed Problem Adverse effect o f aspirin, initial encounter (T39.015A) Active confirmed Vital Signs Oximetry 97 % 06/05/2024 Blood pressure diastolic 83 mm Hg 06/05/2024 Height 66 in 06/05/2024 Blood pressure systolic 138 mm Hg 06/05/2024 Weight 171 lbs 06/05/2024 BMI 27.6 kg/m2 06/05/2024 Encounters Encounter Location Date Provider Diagnosis [facility] [address] [place] [address] 11/14/2024 Adalgisa Dickinson Allergic rhinitis du e to pollen J30.1 ; Allergic rhinitis due to animal (cat) (dog) hair and dander J30.81 ; Other allergic rhinitis J30.89 and Other chronic allergic conjunctivitis H10.45 [facility] [address] [place] [address] 06/18/2024 Adalgisa Dickinson Allergic rhinitis du e to pollen J30.1 ; Allergic rhinitis due to animal (cat) (dog) hair and dander J30.81 ; Other allergic rhinitis J30.89 and Other chronic allergic conjunctivitis H10.45 [facility] [address] [place] [address] 05/21/2024 Adalgisa Dickinson Allergic rhinitis du e to pollen J30.1 ; Allergic rhinitis due to animal (cat) (dog) hair and dander J30.81 ; Other allergic rhinitis J30.89 and Other chronic allergic conjunctivitis H10.[address] [address] 04/18/2024 Adalgisa Dickinson Allergic rhinitis du e to pollen J30.1 ; Allergic rhinitis due to animal (cat) (dog) hair and dander J30.81 ; Other allergic rhinitis J30.89 and Other chronic allergic conjunctivitis H10.45 [facility] [address] [place] [address] 03/21/2024 Adalgisa Dickinson Allergic rhinitis du e to pollen J30.1 ; Allergic rhinitis due to animal (cat) (dog) hair and dander J30.81 ; Other allergic rhinitis J30.89 and Other chronic allergic conjunctivitis H10.45 [facility] [address] [place] [phone] 02/22/2024 Adalgisa Dickinson Allergic rhinitis du e to pollen J30.1 ; Allergic rhinitis due to animal (cat) (dog) hair and dander J30.81 ; Other allergic rhinitis J30.89 and Other chronic allergic conjunctivitis H10.45 [facility] [address] [place] [address] 01/25/2024 Adalgisa Dickinson Allergic rhinitis du e to pollen J30.1 ; Allergic rhinitis due to animal (cat) (dog) hair and dander J30.81 ; Other allergic rhinitis J30.89 and Other chronic allergic conjunctivitis H10.[address] [address] 12/28/2023 Adalgisa Dikcinson Allergic rhinitis du e to pollen J30.1 ; Allergic rhinitis due to animal (cat) (dog) hair and dander J30.81 ; Other allergic rhinitis J30.89 and Other chronic allergic conjunctivitis H10.45 [facility] [address] [place] [phone] 06/05/2024 Adalgisa Dickinson Moderate persistent asthma, uncomplicated [...] Treatment Notes Treatment Clinical Notes Section Notes 12/28/2023 Allergic rhinitis due to pollen (ICD-10 [...] rhinitis due to pollen (ICD-10 - J30.1) 11/14/2024 Allergic rhinitis due to pollen (ICD-10 - J30.1) 11/14/2024 Allergic rhinitis due to animal (cat) (dog) hair and dander (ICD-10 - J30.81) 06/18/2024 Allergic rhinitis due to animal (cat) [...] hair and dander (ICD-10 - J30.81) 12/28/2023 Other allergic rhinitis (ICD-10 - J30.89) [...] 06/18/2024 Other allergic rhinitis (ICD-10 - J30.89) 11/14/2024 Other allergic rhinitis (ICD-10 - J30.89) 11/14/2024 Other chronic allergic conjunctivitis (ICD-10 - H10.45) 06/18/2024 Other chronic allergic conjunctivitis (ICD-10 - [...] chronic allergic conjunctivitis (ICD-10 - H10.45) 06/05/2024 Allergic rhinitis due to animal (cat) (dog) hair and dander (ICD-10 - J30.81) 06/05/2024 Other allergic rhinitis (ICD-10 - J30.89) Follow allergen avoidance, meds as above 06/05/2024 Other chronic allergic conjunctivitis (ICD-10 - H10.45) 06/05/2024 Allergy status to analgesic agent status (ICD-10 - Z88.6) 05/08/2024 Other 06/05/2024 Other Plan Of Treatment Next Appt Details Provider Name:Adalgisa mills, 12/12/2024 08:30:00 AM, [address] [facility] [address], [address], Insurance Providers Payer Name Payer Address Payer Phone Subscriber Number Group Number Insured Name Patient Relationship to Insured Coverage Start Date Coverage End Date [facility] [address] [place] [address] [id number] Devyn Sharif Self - patient is the [...]
--- OUTSIDE RECORDS SUMMARY | 2024-12-06 08:15 | XMS_ITS | Encounter Summary ---
Author Organization [facility] Address [address] [place] [address] Care Team Providers Care Human Resources Leader Name Role Phone Bora Meléndez MD Primary Care Provider Encounter Details Date Type Department Care Team (Late st Contact Info) Description 01/13/2020 Prep for Procedure [facility] Pre-Admission Testing [address] 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 Due to the current public health emergency, [facility] is receiving a high volume of samples [...] about COVID-19 can be found at the [facility] website: www.[employer]/Covid19. Test performed at [facility] [place] [address] [place] [address] Director: MYRON FAJARDO DO,MPH FIRST TEST NO 01/14/2020 10:30 AM CDT [facility] EMPLOYED IN HEALTHCARE NO 01/14/2020 10:30 AM T [facility] SYMPTOMATIC DEFINED BY CDC NO 01/14/2020 10:30 AM CDT [facility] DATE OF SYMPTOM ONSET =FASTING UNKNOWN 01/14/2020 10:58 AM CDT [facility] HOSPITALIZATION STATUS NO 01/14/2020 10:30 AM CDT [facility] PATIENT IN ICU NO 01/14/2020 10:30 AM CDT [facility] RESIDENT OF CONGREGATE CARE NO 01/14/2020 10:30 AM CDT [facility] NOT 01/14/2020 10:58 AM CDT [facility] PATIENT'S RACE WHITE OR 01/14/2020 10:30 AM CDT [facility] ETHNICITY NONHISPANIC 01/14/2020 10:30 AM CDT [facility] SOURCE (QST) NASOPHARYNGEAL SWAB 01/14/2020 10:30 AM CDT [facility] NASOPHARYNGEAL SWAB / Unknown 01/14/2020 9:55 AM CDT us Washington Gamboa MD MICROBIOLOGY - GENERAL ORDERABL ES Final Result [facility] [address] [place] [address], [place] [phone] [facility] [address] [address], documented in this encounter Visit Diagnoses Diagnosis Pre-op exam- Primary Preoperative examination, unspecified documented in this encounter Additional Health Concerns Infection Onset Date Last Indicated Resolved Time COVID-19 Rule Out 01/14/2020 01/14/2020 01/15/2020 4:56 PM CDT documented as of this encounter Care Teams Human Resources Leader Relationship Specialty Start Date End Date Bora Meléndez MD [address] [address] PCP - General INTERNAL MEDICINE 09/11/19 documented as of this encounter
--- OUTSIDE RECORDS SUMMARY | 2024-12-06 08:15 | XMS_ITS | Clinical Summary ---
Author Organization [employer] [place] Address [address] [place] [address] Care Team Providers Care Surgery Tech Name Role Phone Unavailable Primary Care Provider [...] Encounters Date Type Department Care Team Description 12/04/2024 External Device Data [facility] ABSTRACTION Provider, Abstract 12/03/2024 External Device Data [facility] ABSTRACTION Provider, Abstract 12/02/2024 Orders Only [facility] Oncology and Hematology Broa [address] [place] [address] MD 11/28/2024 8:30 AM CDT Office Visit [facility] Oncology and Hematology Bora [address] [place] [address] [address] MD Erythrocytosis (Primary Dx); MGUS [...] on file 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 Gender Identity Not on file Sexual Orientation [...] 12/30/2024 4:30 PM CDT Telephone Check Up [facility] Oncology and Hematology - Bora [address] [facility] [address] [place] [address] MD [address] [facility] [address] [place] [address] Health Maintenance Due Date Last Done Comments COLORECTAL SCREENING 2009 Colorectal Cancer Screening 2009 FIT-DNA Q 3 years 2009 FIT/FOBT Q 1 year 2009 Flex Sig/CT Colonography Q 5 years 2009 ZOSTER VACCINE (1 of 2) 2014 Preventative Visit- Commercial 04/17/2024 RSV VACCINE (60+ or ) (1 - Risk 60-74 years 1-dose series) 2024 INFLUENZA VACCINE (#1) 2024 DTAP/TDAP/TD VACCINES (2 - T d or Tdap) 09/15/2025 09/16/2015, 03/18/2009 HEPATITIS B VACCINES Aged Out No long er eligible based on patient's age to complete this topic Procedures Procedure Name Priority Date/Time Associated Diagnosis Comments XR BONE SURVEY COMPLETE Routine 11/28/2024 10:50 AM CDT from Last 3 Months Results * XR BONE SURVEY COMPLETE (11/28/2024 10:50 AM CDT) Anatomical Region Laterality Modality Other Jordin Lane MD DIAGNOSTIC IMAGING ORDERABLES F inal Result from Last 3 Months Insurance [facility] [id number] POS II
--- OUTSIDE RECORDS SUMMARY | 2024-12-06 08:15 | XMS_ITS | Encounter Summary ---
Author Organization [facility] Address [address] [place] [address] Care Team Providers Care Pharmacy Cashier Name Role Phone Unavailable Primary Care Provider Unavailabl e Encounter Details Date Type Department Care Team (Late st Contact Info) Description 12/04/2024 External Device Data [facility]STRACTION Provider, Abstract NO ADDRESS ON FILE Social History Tobacco Use Types Packs/Day Years Used Date Smoking Tobacco: Former Cigarettes 0.5 10 0 12/24/1987 - 12/23/1997 Smokeless Tobacco: Never Alcohol Use Standard Drinks/Week Comments Yes 0 (1 standard drink = 0.6 oz pur e alcohol) Occasionally Sex and Gender Information Value Date Recorded Sex Assigned at Not on file 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
--- OUTSIDE RECORDS SUMMARY | 2024-12-06 08:15 | XMS_ITS | Clinical Summary ---
Author Organization [facility] Address [address] [place] [address] Phone Care Team Providers Care Press Clipper Name Role Phone Lenorubi Brooks Joseph DO [...] Comments Blood Pressure 140/88 03/28/2023 5:26 PM CALCULUS TEACHER Pulse 79 03/28/2023 5:26 PM CALCULUS TEACHER Temperature 36.5 C (97.7 F) 03/28/2023 5:26 PM CALCULUS TEACHER Respiratory Rate 18 03/28/2023 5:26 PM CALCULUS TEACHER Oxygen Saturation 99% 03/28/2023 5:26 PM CALCULUS TEACHER Inhaled Oxygen Concentration - - Weight 65.8 kg (145 lb) 03/28/2023 5:26 PM CALCULUS TEACHER Height 167.6 cm (5' 6) 08/12/2017 5:25 [...] patient's age to complete this topic Insurance [facility] Care Teams Press Clipper Relationship Specialty Start Date End Date Brooks Montero DO [facility] [place] [address] PCP - General Internal Medicine 11/25/21
--- OUTSIDE RECORDS SUMMARY | 2024-12-06 08:15 | XMS_ITS | Clinical Summary ---
Author Organization [facility] Address [address] [facility] [place] [address] Care Team Providers Care Body Trimmer Name Role Phone Brooks Montero DO Primary Care Provider [phone] Source Comments [facility],non-owned Affiliates and Associated Physician Practices is amultiple site organization consisting of ambulatory clinics and hospital sitesin [place], [place], [place] and [place]. This disclosure is being madepursuant to the Care Everywhere program and may not contain all information available regarding this patient. Last updated 18.[facility] Social History Tobacco Use Types Packs/Day Years Used Date Smoking Tobacco: Never Assessed Sex and Gender Information Value Date Recorded Sex Assigned at Not on file Legal Sex Male 5:48 AM ORGAN TEACHER Gender Identity Not on file Sexual Orientation [...] complete this topic Insurance [employer] Care Teams Body Trimmer Relationship Specialty Start Date End Date Brooks Montero DO PCP - General 11/12/21
--- OUTSIDE RECORDS SUMMARY | 2024-12-06 08:15 | XMS_ITS | Clinical Summary ---
Author Organization [facility] Address [address] [place] [address] Care Team Providers Care Featheredge Machine Operator Name Role Phone Bora Meléndez MD Unavailable [phone] Brooks Montero DO Primary Care Provider [phone] Allergies Active Allergy Reactions Criticality Noted Date [...] (05/01/2020): Added automatically from request for surgery [id number] Personal history of colonic polyps 05/01/2020 Overview (05/01/2020): Added automatically from request for surgery [id number] Encounter for screening colonoscopy 05/01/2020 Overview (05/01/2020): Added automatically from request for surgery [id number] Moderate persistent asthma without complication 10/09/2019 Assessment & Plan (04/15/2020 7:59 PM GLUE MAKER): Continue with Wixela and use duo nebs twice a day before using Wixela. If symptoms remain uncontrolled I will add LAMA. Assessment & Plan (10/09/2019 4:28 PM CDT): Continue with wixela , duo nebs and p.r.n. albuterol inhaler. Will obtain methacholine challenge test once he is completely asymptomatic. Allergic rhinitis 07/11/2019 Assessment & Plan (04/15/2020 7:59 PM GLUE MAKER): CONTINUE WITH INTRANASAL CORTICOSTEROIDS. Assessment & Plan [...] REFLUX Assessment & Plan (04/15/2020 8:00 PM GLUE MAKER): Symptoms of GERD are controlled without pharmacotherapy. Tension headache 08/31/2013 Overview (07/21/2016): TENSION HEADACHE NOS Severe asthma with exacerbation Encounters Date Type Department Care Team Description 11/21/2024 Telephone [facility] Orthopedics and Sports Medicine [address] [place] [phone] Santos Ruiz MD FMLA/Disability paperwork 11/06/2024 3:05 PM CDT Ancillary Procedure [facility] Imaging at [address] [phone] 11/06/2024 3:00 PM CDT Office Visit [facility] Orthopedic and Sports Medicine [address] [place] [phone] Santos Ruiz MD Left shoulder pain, unspecified chronicity (Primary Dx); Scapular dyskinesis; Labral tear of long head of left biceps tendon, initial encounter; Superior glenoid labrum lesion of left shoulder, initial encounter 11/06/2024 Orders Only [facility] Orthopedic and Sports Medicine [address] [place] [phone] Santos Ruiz MD S/P arthroscopy of left shoulder (Primary Dx) 11/06/2024 Telephone [facility] Orthopedic and Sports Medicine [address] [place] [phone] Santos Ruiz MD Surgical Clearance 09/13/2024 Telephone [facility] Orthopedics and Sports Medicine [address] [place] [address] [address] [place] [address] Santos Ruiz MD Left shoulder [...] on file Legal Sex Male 11:54 PM GLUE MAKER Gender Identity Not on file Sexual Orientation [...] 03/18/2009, 03/18/2009 Medical Devices Implanted Type Area Pressure Tank Operator Device Identifier Shelf Expiration Date Model / Serial / Lot Patch Surgical Ventralex Sepra Sorbaflex Polypropylene Eptfe Small [place] Od1.7 In Monofilament Self Expand Strap Pocket Sterile Umbilical Hernia Repair - [id number] Implanted:Qty: 1 on 04/13/2017 by Anjel Quinones MD at [facility] Mesh N/A: Umbilical [employer]/C R Bard 03/14/2020 [id number] / / [id number] Procedures Procedure Name Priority Date/Time Associated Diagnosis [...] Resu lt from Last 3 Months Insurance [facility] Advance Directives For more information, please contact: [phone] * Full Code (Latest Code Status on File) Date Activated Date Inactivated Comments 05/30/2019 6:33 PM 06/04/2019 7:35 PM * Full Code Date Activated Date Inactivated Comments 11/14/2018 6:07 AM 11/15/2018 4:39 PM Care Teams Featheredge Machine Operator Relationship Specialty Start Date End Date Brooks Montero DO PCP - General Internal Medicine 08/16/22 Bora Meléndez MD 06/20/18
[2024-12-06 08:51] LABS: Estimated Glomerular Filt Rate 56
== END 2024-12-06 08:10 | disposition home or self-care (01) ==
PROVIDERS: PCP Internal Medicine; Visit Provider Internal Medicine Hematology & Oncology
DX: R63.4 Abnormal weight loss (principal); N28.1 Cyst of kidney, acquired; N40.0 Benign prostatic hyperplasia without lower urinary tract symptoms; K57.90 Diverticulosis of intestine, part unspecified, without perforation or abscess without bleeding
CPT/HCPCS: 36415; 71260; 74177; 80053; 81219; 81270; 82668; 82784; 83521; 84155; 84165; 85025; Q9967

== ENCOUNTER 2024-12-06 09:14 | Outpatient (CLI) | payer OTHER, SELFPAY ==
--- OUTSIDE RECORDS SUMMARY | 2024-12-06 09:17 | XMS_ITS | Encounter Summary ---
Author Organization [facility] Address [address] [facility] [place] [address] Care Team Providers Care Level Vial Sealer Name Role Phone Brooks Montero DO Primary Care Provider [phone] Encounter Details Date Type Department Care Team (Late st Contact Info) Description 05/16/2022 Lab Requisition [facility] DermPath Lab [address] [facility] [place] [address] Jose Ramon Kurtz MD [address] [place] [address] Social History Tobacco Use Types Packs/Day Years Used Date Smoking Tobacco: Never Assessed Sex and Gender Information Value Date Recorded Sex Assigned at Not on file Legal Sex Male 5:48 AM [place] Gender Identity Not on file Sexual Orientation Not on file documented as of this encounter Plan of Treatment Not on file documented as of this encounter Procedures Procedure Name Priority Date/Time Associated Diagnosis Comments DERMATOPATHOLOGY Routine 05/13/2022 12:0 0 AM [place] documented in this encounter Results * DERMATOPATHOLOGY (05/13/2022 12:00 AM [place]) Case Report Dermatopathology Report Case: [id number] Authorizing Provider: Jose Ramon Kurtz MD Collected: 05/13/2022 12:00 AM Ordering Location: [facility] DermPath Lab Received: 05/16/2022 03:45 PM Pathologist: Marissa Samuels MD Specimen: Skin, right posterior shoulder 3:32 PM [facility] [place] DERMATOPATHOLOGY LABORATORY Final Diagnosis Specimen A. SKIN, right posterior shoulder: SEBORRHEIC KERATOSIS, RETICULATED (ADENOID) TYPE (L82.1) (see microscopic description) 3 3:32 PM [facility] DERMATOPATHOLOGY LABORATORY at [address] [facility] Clinical History Lentigo vs MM Path#[id number] 3 3:32 PM [facility] DERMATOPATHOLOGY LABORATORY Gross Description Specimen A: Received is one formalin filled container labeled with the patient's name and designated right posterior shoulder. The specimen consists of a shave biopsy measuring 5x4x1 mm. Jar 0. 3 3:32 PM [facility] DERMATOPATHOLOGY LABORATORY Microscopic Description Specimen A. SKIN, right posterior shoulder: There is reticulated hyperplasia of the epidermis with overlying delicate hyperorthokeratosis . Hyperpigmentation is present in the basaloid cells. MART-1/Melan-A staining highlights regular periodicity of melanocytes along the dermoepidermal junction. Additional deeper sections were obtained and reviewed. 3 3:32 PM [facility] DERMATOPATHOLOGY LABORATORY Disclaimer An external and internal positive and negative controls are appropriate for the histochemical, immunohistochemical and immunofluorescence stain(s) in this case (if any), except where stated explicitly. The performance characteristics of the stain(s) cited in this report were developed and its performance characteristic determined by the Dermatopathology Laboratory at [facility], directed by Dr. Carmelo Bar. These tests need not be, and therefore are not, approved by the [place] Food and Drug Administration. The tests are used for clinical purposes. Billing Codes Specimen Charges Stain Charges 74862 1 68581 1 3 3:32 PM [facility] DERMATOPATHOLOGY LABORATORY Embedded Images 3 3:32 PM [facility] DERMATOPATHOLOGY LABORATORY Pathology/Cytolog y TISSUE SPECIMEN FROM SKIN / Unknown 05/13/2022 05/16/2022 3:45 PM [place] us Jose Ramon Kurtz MD LAB - PATHOLOGY/CYTOLOGY ORDER DRU Final Result DERMATOPATHOLOGY LABORATORY [facility] - Department of Dermatology [facility] Medicine [address] [place] [address], [address] [phone] documented in this encounter Visit Diagnoses Not on filedocumented in this encounter Care Teams Level Vial Sealer Relationship Specialty Start Date End Date Brooks Montero DO PCP - General 11/12/21 documented as of this encounter
--- OUTSIDE RECORDS SUMMARY | 2024-12-06 09:17 | XMS_ITS | Encounter Summary ---
Author Organization [facility] Tail [facility] Address [address] [place] [address] Care Team Providers Care School Administrator Name Role Phone Unavailable Primary Care Provider Unavailabl e Encounter Details Date Type Department Care Team (Late st Contact Info) Description 12/02/2024 Orders Only [facility] Oncology and Hematology [facility] [address] [place] [address] MD [facility] [place] [phone] Social History Tobacco Use Types Packs/Day Years Used Date Smoking Tobacco: Former Cigarettes 0.5 10 0 12/24/1987 - 12/23/1997 Smokeless Tobacco: Never Alcohol Use Standard Drinks/Week Comments Yes 0 (1 standard drink = 0.6 oz pur e alcohol) Occasionally Sex and Gender Information Value Date Recorded Sex Assigned at Not on file 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
--- OUTSIDE RECORDS SUMMARY | 2024-12-06 09:17 | XMS_ITS | Clinical Summary ---
Author Organization [facility] Address [address] [place] [address] Phone Care Team Providers Care Spring Coiling Machine Setter Name Role Phone Lenorubi Brooks Joseph DO [...] Comments Blood Pressure 140/88 03/28/2023 5:26 PM PATTERN GATER Pulse 79 03/28/2023 5:26 PM PATTERN GATER Temperature 36.5 C (97.7 F) 03/28/2023 5:26 PM PATTERN GATER Respiratory Rate 18 03/28/2023 5:26 PM PATTERN GATER Oxygen Saturation 99% 03/28/2023 5:26 PM PATTERN GATER Inhaled Oxygen Concentration - - Weight 65.8 kg (145 lb) 03/28/2023 5:26 PM PATTERN GATER Height 167.6 cm (5' 6) 08/12/2017 5:25 [...] age to complete this topic Insurance [facility] Care Teams Spring Coiling Machine Setter Relationship Specialty Start Date End Date Brooks Montero DO [facility] [facility] [place] [address] PCP - General Internal Medicine 11/25/21
--- OUTSIDE RECORDS SUMMARY | 2024-12-06 09:17 | XMS_ITS | Clinical Summary ---
Author Organization [facility] Address [address] [place] [address] Care Team Providers Care Motor Builder Winder Name Role Phone Brooks Montero DO Primary Care Provider [phone] Source Comments [facility],non-owned Affiliates and Associated Physician Practices is amultiple site organization consisting of ambulatory clinics and hospital sitesin [place], [place], [place] and [place]. This disclosure is being madepursuant to the Care Everywhere program and may not contain all information available regarding this patient. 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
--- OUTSIDE RECORDS SUMMARY | 2024-12-06 09:17 | XMS_ITS | Encounter Summary ---
Author Organization [facility] Address 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
--- OUTSIDE RECORDS SUMMARY | 2024-12-06 09:17 | XMS_ITS | Clinical Summary ---
Author Organization [facility] Address [address] [place] [address] Care Team Providers Care Inspector Chief Name Role Phone Bora Meléndez MD Unavailable [phone] Brooks Montero DO Primary Care Provider [phone] Allergies Active Allergy Reactions Criticality Noted Date [...] (05/01/2020): Added automatically from request for surgery [id number] Personal history of colonic polyps 05/01/2020 Overview (05/01/2020): Added automatically from request for surgery [id number] Encounter for screening colonoscopy 05/01/2020 Overview (05/01/2020): Added automatically from request for surgery [id number] Moderate persistent asthma without complication 10/09/2019 Assessment & Plan (04/15/2020 7:59 PM VICE PRESIDENT OF COMMUNICATIONS): Continue with Wixela and use duo nebs twice a day before using Wixela. If symptoms remain uncontrolled I will add LAMA. Assessment & Plan (10/09/2019 4:28 PM CDT): Continue with wixela , duo nebs and p.r.n. albuterol inhaler. Will obtain methacholine challenge test once he is completely asymptomatic. Allergic rhinitis 07/11/2019 Assessment & Plan (04/15/2020 7:59 PM VICE PRESIDENT OF COMMUNICATIONS): CONTINUE WITH INTRANASAL CORTICOSTEROIDS. Assessment & Plan [...] REFLUX Assessment & Plan (04/15/2020 8:00 PM VICE PRESIDENT OF COMMUNICATIONS): Symptoms of GERD are controlled without pharmacotherapy. Tension headache 08/31/2013 Overview (07/21/2016): TENSION HEADACHE NOS Severe asthma with exacerbation Encounters Date Type Department Care Team Description 11/21/2024 Telephone [facility] Orthopedics and Sports Medicine [address] [place] [phone] Santos Ruiz MD FMLA/Disability paperwork 11/06/2024 3:05 PM CDT Ancillary Procedure [facility] Imaging at [address] [phone] 11/06/2024 3:00 PM CDT Office Visit [facility] Orthopedic and Sports Medicine [address] [place] [address] Santos Ruiz MD Left shoulder pain, unspecified chronicity (Primary Dx); Scapular dyskinesis; Labral tear of long head of left biceps tendon, initial encounter; Superior glenoid labrum lesion of left shoulder, initial encounter 11/06/2024 Orders Only [facility] Orthopedic and Sports Medicine [address] [place] [phone] Santos Ruiz MD S/P arthroscopy of left shoulder (Primary Dx) 11/06/2024 Telephone [facility] Orthopedic and Sports Medicine [address] [place] [phone] Santos Ruiz MD Surgical Clearance 09/13/2024 Telephone [facility] Orthopedics and Sports Medicine [address] [place] [address] [address] [place] [address] Santos Ruiz MD Left shoulder [...] on file Legal Sex Male 11:54 PM VICE PRESIDENT OF COMMUNICATIONS Gender Identity Not on file Sexual Orientation [...] 03/18/2009, 03/18/2009 Medical Devices Implanted Type Area Metal Furniture Repairer Device Identifier Shelf Expiration Date Model / Serial / Lot Patch Surgical Ventralex Sepra Sorbaflex Polypropylene Eptfe Small [place] Od1.7 In Monofilament Self Expand Strap Pocket Sterile Umbilical Hernia Repair - [id number] Implanted:Qty: 1 on 04/13/2017 by Anjel Quinones MD at [facility] Mesh N/A: Umbilical [employer]/C R Bard 03/14/2020 [id number] / / [id number] Procedures Procedure Name Priority Date/Time Associated Diagnosis [...] Resu lt from Last 3 Months Insurance [facility] Advance Directives For more information, please contact: [phone] * Full Code (Latest Code Status on File) Date Activated Date Inactivated Comments 05/30/2019 6:33 PM 06/04/2019 7:35 PM * Full Code Date Activated Date Inactivated Comments 11/14/2018 6:07 AM 11/15/2018 4:39 PM Care Teams Inspector Chief Relationship Specialty Start Date End Date Brooks Montero DO PCP - General Internal Medicine 08/16/22 Bora Meléndez MD 06/20/18
--- OUTSIDE RECORDS SUMMARY | 2024-12-06 09:17 | XMS_ITS | Encounter Summary ---
Author Organization [facility] Healthcare Address [address] [place] [address] Care Team Providers Care Senior Contracts Administrator Name Role Phone Bora Meléndez MD Unavailable [phone] Brooks Montero DO Primary Care Provider [phone] Reason for Visit * Reason Onset Date Comments FMLA/Disability paperwork 11/21/2024 Encounter Details Date Type Department Care Team (Late st Contact Info) Description 11/21/2024 Telephone [facility] Medical Group Orthopedics and Sports Medicine [address] 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 Requests it be faxed to [phone]. He would also like to know if [...] on filedocumented in this encounter Care Teams Senior Contracts Administrator Relationship Specialty Start Date End Date Brooks Montero DO PCP - General Internal Medicine 08/16/22 Bora Meléndez MD 06/20/18 documented as of this encounter
--- OUTSIDE RECORDS SUMMARY | 2024-12-06 09:17 | XMS_ITS | Clinical Summary ---
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 Gender Identity Not on file Sexual Orientation [...] 12/30/2024 4:30 PM CDT Telephone Check Up [facility] Oncology and Hematology - [place] [address] [facility] [address] [place] [address] MD [address] [facility] [address] [place] [address] Health Maintenance Due Date Last Done Comments COLORECTAL SCREENING 2009 Colorectal Cancer Screening 2009 FIT-DNA Q 3 years 2009 FIT/FOBT Q 1 year 2009 Flex Sig/CT Colonography Q 5 years 2009 ZOSTER VACCINE (1 of 2) 2014 RSV VACCINE (60+ or ) (1 - [...] inal Result from Last [address] [place] [address] [facility] [id number] POS II
[2024-12-06 09:36] LABS: Hematocrit 54.5 % (42.0-52.0); Hemoglobin 19.3 g/dL (14.0-18.0); Immature Granulocyte Percent A 0.3 % (0-0.5); Lymphocytes Absolute Auto 1.78 K/mm3 (0.9-3.2); Mean Corpuscular HGB Conc 35.4 g/dl (32-36); Mean Corpuscular Hemoglobin 31.5 pg (26-34); Mean Corpuscular Volume 89.1 fl (80-100); Nucleated Red Blood Cells Absolute Auto 0.000 K/mm3 (0.0-0.012); Nucleated Red Blood Cells Perc 0.0 % (0.0-0.2); Platelet Count Result 256 k/mm3 (150-375); Red Blood Count 6.12 M/mm3 (4.6-6.20); White Blood Count 6.6 K/mm3 (4.5-10.0)
[2024-12-06 12:03] LABS: Alanine Aminotransferase 39 U/L (6-50); Albumin Level 4.8 g/dL (3.5-5.1); Alkaline Phosphatase 53 U/L (38-126); Anion Gap 6 mmol/L (4-12); Aspartate Amino Transferase 46 U/L (17-59); Bilirubin,Total 0.9 mg/dL (0.2-1.3); Blood Urea Nitrogen 19 mg/dL (9-20); Calcium 9.9 mg/dL (8.4-10.2); Carbon Dioxide 28 mmol/L (22-30); Chloride 100 mmol/L (98-107); Estimated Glomerular Filt Rate > 60; Glucose 95 mg/dL (65-110); Potassium 4.5 mmol/L (3.4-5.0); Sodium 134 mmol/L (137-145); Total Protein 7.9 g/dL (6.3-8.2)
[2024-12-06 12:11] LABS: Immunoglobulin A 80 mg/dL (70-400); Immunoglobulin G 1339 mg/dL (700-1600); Immunoglobulin M 46 mg/dL (40-230)
[2024-12-09 15:08] LABS: Albumin 4.4 g/dL (2.9-4.4); Alpha-1-Globulin 0.2 g/dL (0.0-0.4); Alpha-2-Globulin 0.6 g/dL (0.4-1.0); Gamma Globulin 1.2 g/dL (0.4-1.8)
[2024-12-09 18:08] LABS: Free Lambda Lt Chains, Serum 7.6 mg/L (5.7-26.3); Kappa/Lambda Ratio, Serum 2.05 (0.26-1.65)
[2024-12-17 11:08] LABS: CALR + MPL + E12-E15 YES YES
== END 2024-12-06 09:15 | disposition home or self-care (01) ==
LOC: ANHLAB 09:15
PROVIDERS: PCP Internal Medicine; Visit Provider Internal Medicine Hematology & Oncology
DX: D47.2 Monoclonal gammopathy (principal); D75.1 Secondary polycythemia
CPT/HCPCS: 36415; 80053; 81219; 81270; 82668; 82784; 83521; 84155; 84165; 85025